=== PATIENT | male | born 1935 | race Caucasian/White ===

== ENCOUNTER 2016-09-20 15:23 | Inpatient (IN) | payer MEDICAID, MEDICARE, OTHER ==
[2016-09-20] VITALS (12 sets, daily range): BP systolic 60–129; BP diastolic 24–96
[~2016-09-20] VITALS: Ht 165.1 cm; Wt 88.1 kg
[~2016-09-20 15:23] MED LIST: CALC200T98 PO; CALC625T61 PO; CAPS42.56 TP; DEXT15DR5 EACHEYE; DOCU-109 PO; FURO-69 PO; HUM100VI SQ; LAMO100T5 PO; LEVO112T2 PO; MAGN400O7 PO; ONDA4TAB10 SL; PHEN100C PO; RANI150T2 PO
--- NOTE | 2016-09-20 17:12 | PDOC1 ---
History and Physical Date of Admission Date of Admission DATE: 09/20/16 TIME: 17:07 Identification/Chief Complaint Chief Complaint confusion, lethargy Problems: Source Source: Chart review, Patient History of Present Illness History of Present Illness pt presented from [facility] in [place] today for acute lethargy, confusion, was obtunded and not alert. Unable to be aroused initially in ER, Labs showed acute renal failure, Cr to 9.4, BUN 127, ALb 2.5 WBC 16.2, HGb 12.2, Plt 272 UA pos nitrate He was here until 08/31 for SBO, ostomy, labs at [place] were BUN 35, Cr 1.1, Albumin 1.5 Past Medical History Cardiovascular: HTN Pulmonary: No pertinent hx CENTRAL NERVOUS SYSTEM: Seizure Hepatobiliary: No pertinent hx Psych: Other Musculoskeletal: low back pain Rheumatologic: No pertinent hx Endocrine: No pertinent hx Past Surgical History Past Surgical History: Cholecystectomy, Other (SBO, ostomy 1 mo ago) Family History Family History: Family History Unknown Social History Smoke: No ALCOHOL: none Drugs: None Current Medications Current Medications Current Medications Sodium Chloride 1,000 ml @ 1,000 mls/hr 1X ONCE IV ; Start 09/20/16 at 17:15; Stop 09/20/16 at 18:14 Sodium Chloride 1,000 ml @ 1,000 mls/hr 1X ONCE IV ; Start 09/20/16 at 17:15; Stop 09/20/16 at 18:14 Vancomycin HCl (Vanco Per Pharmacy) 1 each PRN DAILY PRN MC SEE COMMENTS; Start 09/20/16 at 17:15; Status UNV Piperacillin Sod/ Tazobactam Sod (Zosyn Per Pharmacy) 1 each PRN DAILY PRN MC SEE COMMENTS; Start 09/20/16 at 17:15; Status UNV Sodium Chloride 1,000 ml @ 150 mls/hr Q6H40M IV ; Start 09/20/16 at 17:15; Status UNV Active Scripts Active Reported Milk Of Magnesia (Magnesium Hydroxide) 400 Mg/5 Ml Oral.susp 400 Mg PO PRN Q24HRS PRN Lamictal (Lamotrigine) 100 Mg Tablet 1 Tab PO BID Lasix (Furosemide) 20 Mg Tablet 1 Tab PO DAILY Humulin 70-30 Vial (Hum Insulin Nph/Reg Insulin Hm) 100 Unit/1 Ml Vial 22 Unit SQ Q AM Colace (Docusate Sodium) 100 Mg Capsule 1 Cap PO BID Calcium Polycarbophil 625 Mg Tablet 1,250 Mg PO DAILYWSUP Artificial Tears Eye Drops (Dextran 70/Hypromellose) 15 Ml Drops 2 Drop EACHEYE BID Synthroid (Levothyroxine Sodium) 112 Mcg Tablet 1 Tab PO DAILY Zofran Odt (Ondansetron) 4 Mg Tab.rapdis 1 Tab SL PRN Q4HRS Humulin 70-30 Vial (Hum Insulin Nph/Reg Insulin Hm) 100 Unit/1 Ml Vial 10 Unit SQ DAILYBFRSUP Capzasin-Hp (Capsaicin) 42.5 Gm Cream..g. 42.5 Gm TP BID Calcium Antacid (Calcium Carbonate) 200 Mg Tab.chew 400 Mg PO TID Dilantin (Phenytoin Sodium Extended) 100 Mg Capsule 300 Mg PO HS Ranitidine Hcl 150 Mg Tablet 1 Tab PO BID Allergies Allergies: Coded Allergies: Carbapenems (Verified Allergy, Intermediate, 08/26/16) Cephalosporins (Verified Allergy, Intermediate, 08/26/16) Penicillins (Verified Allergy, Intermediate, 08/26/16) aztreonam (Verified Allergy, Intermediate, 08/26/16) sulfamethoxazole (Verified Allergy, Intermediate, 08/26/16) trimethoprim (Verified Allergy, Intermediate, 08/26/16) ROS Review of System confused, lethargic, with chills, rigors PT unable to verbalize to me Physical Exam General: moderate distress, Other (poorly cooperatve, non sensical statements , some agitation) HEENT: Atraumatic, PERRLA, Other (pupils small, reactive, no icterus) Lungs: Clear to auscultation, Normal air movement Heart: S1S2, RRR (tachycardic) Abdomen: Other (a little firm, ostomy appears clear, bowel sounds present) Rectal Exam: not examined Extremities: No clubbing, No cyanosis Skin: No rashes, No breakdown, No significant lesion Neuro: Other (agitated, delirious) VTE Prophylaxis Ordered VTE Prophylaxis Devices: Yes VTE Pharmacological Prophylaxi: Yes Assessment/Plan Assessment/Plan sepsis, shock,, hypotensive, 2 liters NS given at [facility] ER, 2 liters ordered now BP 58/40 here, levaphed started, will wean as able VAnc ordered, mult other drug allergies to carbapenems, cephalosporins, Pcn, aztreonam, sulfa acute metabolic encephalopathy, UTI, sepsis central line ordered, PICC OK acute renal failure, could be pre-renal, 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
[2016-09-20] MEDS ORDERED: VANCOMYCIN PER PHARMACY MC PRN (17:15)
[2016-09-20] MEDS ORDERED: HYDROCORTISONE SOD SUCC/PF 100 MG/2 ML VIAL. IV ONE (17:15)
[2016-09-20] MEDS ORDERED: VANCOMYCIN 2 GM in IV NORMAL SALINE 500ML BAG 500 ML IV ONE (17:15)
[2016-09-20] MEDS: IPRATRPIUM/ALBUTEROL 0.5/2.5MG 3 ML NEBU. NEB SCH ×2 (17:15→19:40)
[2016-09-20] MEDS ORDERED: IV NORMAL SALINE 1000ML BAG 1,000 ML IV ONE ×2 (17:15)
[2016-09-20] MEDS ORDERED: PIP/TAZO PER PHARMACY MC PRN (17:15)
[2016-09-20] MEDS ORDERED: LEVE500T56 PO (17:26)
[2016-09-20] MEDS ORDERED: ONDANSETRON ODT 4 MG TAB.RAPDIS. PO PRN (17:30)
[2016-09-20] MEDS: INSULN ASP PRT/INSULIN ASPART 300 UNITS/3 ML INSULN.PEN. SQ SCH (17:45)
[2016-09-20] MEDS: NOREPINEPHRIN PREMIX 250 ML IV PRN (18:00)
[2016-09-20] MEDS ORDERED: PIPERACILLIN/TAZOBACTAM 4.5 GM in IV NORMAL SALINE 100ML 100 ML IV SCH (18:00)
[2016-09-20 18:40] LABS: BASO # 0.1 x10^3/uL (0.0-0.2); BASO % 0 % (0-3); EOS % 0 % (0-3); HEMATOCRIT 28.1 % (39.0-53.0); HEMOGLOBIN 9.4 g/dL (13.0-17.5); LYMPH # 1.7 x10^3/uL (1.0-4.8); LYMPH % 8 % (24-48); MEAN CORPUSCULAR HEMOGLOBIN 30 pg (25-35); MEAN CORPUSCULAR HGB CONC 33 g/dL (31-37); MEAN CORPUSCULAR VOLUME 91 fL (79-100); MONO % 7 % (0-9); NEUT % 84 % (31-73); PLATELET COUNT 248 x10^3/uL (140-400); RED BLOOD COUNT 3.09 x10^6/uL (4.30-5.70); RED CELL DISTRIBUTION WIDTH 14.1 % (11.5-14.5); WHITE BLOOD COUNT 20.8 x10^3/uL (4.0-11.0)
[2016-09-20 18:59] LABS: ALBUMIN 1.7 g/dL (3.4-5.0); ALBUMIN/GLOBULIN RATIO 0.4 (1.0-1.7); CALCIUM 6.9 mg/dL (8.5-10.1); GFR 7.6; POTASSIUM 4.4 mmol/L (3.5-5.1); TOTAL BILIRUBIN 0.7 mg/dL (0.2-1.0); TOTAL PROTEIN 6.4 g/dL (6.4-8.2)
[2016-09-20 19:38] LABS: PLT ESTIMATE ADEQUATE (ADEQUATE); POLYCHROMASIA MOD
[2016-09-20 19:39] LABS: OVALOCYTES OCC; STOMATOCYTES OCC
[2016-09-20 19:40] LABS: CRENATED RBC PRESENT
--- NOTE | 2016-09-20 19:41 | RAD ---
History: Small bowel obstruction. Comparison: August 26, 2016. Findings: AP supine portable abdomen radiograph, 2 images. There is evidence of motion artifact. Bro catheter versus suprapubic catheter is seen in the lower pelvis. Bowel gas pattern is nonspecific, without evidence of obstruction. Impression: Limited examination. Nonspecific bowel gas pattern. Electronically signed by: Danny Alejandra MD (09/20/2016 7:38 PM)
[2016-09-20] MEDS: IV NORMAL SALINE 1000ML BAG 1,000 ML IV SCH ×2 (19:52→23:48)
--- NOTE | 2016-09-20 20:01 | EKG ---
[facility] [address] [place] [address] Test Date: 2016-09-20 Test Time: 20:02:31 Pat Name: KATIE RICKETTS Department: Room: 109 1 Gender: M [employer] Employee: : 1935 Requested By: MELISSA JUÁREZ Order Number: [id number] Reading MD: Esmer Ware Measurements Intervals [place] Rate: 89 P: 37 NV: 182 QRS: -8 QRSD: 58 T: 26 QT: 414 QTc: 511 Interpretive Statements SINUS RHYTHM LEFTWARD AXIS LOW VOLTAGE PROLONGED QT ABNORMAL ECG Electronically Signed On 09-23-2016 21:18:56 CDT by Esmer Ware
[2016-09-20] MEDS: DOCUSATE SODIUM 100 MG CAPSULE. PO SCH (20:10)
[2016-09-20] MEDS: CALCIUM CARBONATE 500 MG TAB.CHEW PO SCH (20:11)
[2016-09-20 20:31] LABS: FIO2 ABG 32; HCO3 ABG 28 mmol/L (21-28); PCO2 ABG 57 mmHg (35-46); PO2 ABG 70 mmHg (65-108); SAT O2 ABG 91 % (92-99)
[2016-09-20] MEDS ORDERED: levETIRAcetam 500 MG TABLET PO SCH (21:00)
[2016-09-20] MEDS ORDERED: FAMOTIDINE 20 MG TABLET. PO SCH (21:00)
[2016-09-20] MEDS ORDERED: PHENYTOIN SODIUM EXTENDED 100 MG CAPSULE PO SCH (21:00)
[2016-09-20] MEDS ORDERED: lamoTRIgine 100 MG TABLET. PO SCH (21:00)
[2016-09-20] MEDS: CAPSAICIN 0.025% TOPICAL CREAM 60GM TUBE. TP SCH (21:10)
[2016-09-20] MEDS: POLYVINYL ALCOHOL 1.4% OPHTH SOLUTION 15ML BOTTLE. OU SCH (21:10)
[2016-09-20] MEDS: DOXYCYCLINE HYCLATE 100 MG in IV DEXTROSE 5% 100 ML IV SCH (21:11)
[2016-09-20] MEDS: HEPARIN PF for SUB-Q USE 5,000 UNIT/0.5 ML VIAL. SQ SCH (21:13)
[2016-09-20] MEDS: HYDROCORTISONE SOD SUCC/PF 100 MG/2 ML VIAL. IV SCH (21:52)
[2016-09-20] MEDS ORDERED: ALBUMIN HUMAN 5% 500 ML IV ONE (23:30)
[2016-09-20] MEDS: MORPHINE SULFATE 4 MG/ML DISP.SYRIN. IV PRN (23:47)
[2016-09-21] VITALS (30 sets, daily range): BP systolic 84–154; BP diastolic 37–88
--- NOTE | 2016-09-21 00:01 | ACF ---
Admission Forms Criteria SEPSIS and OTHER FEBRILE ILLNESS, W/O FOCAL INFECTION Clinical Indications for Admission to Inpatient Care ( Place 'X' for any and all applicable criteria): Admission is indicated for ANY ONE of the following (1)(2)(3)(4): [ ] I. Bacteremia [ ]II. Suspected or identified specific infection requiring hospitalization (eg, meningitis, endocarditis) [X]III. Hemodynamic instability [ ]IV. Altered mental status [ ]V. Failure or unavailability of outpatient antimicrobial treatment [ ]. Hypoxemia [ ]VII. Seizures [ ]VIII. High-risk febrile neutropenia [ ]IX. Need for parenteral antibiotic in patient who is likely to abuse vascular access device (eg, injection drug user) [A](7) [ ]X. Temperature greater than 104.9 degrees F (40.5 degrees C) (oral) [ ]XI. Inpatient admission required rather than observation care because of ANY ONE of the following: [ ]1) Specific infection identified that is too severe for outpatient treatment or observation care trial [ ]2) Metabolic disorder (eg, hypoglycemia, hyperglycemia, metabolic acidosis) that is severe or persistent [ ]3) Temperature greater than 103.1 degrees F (39.5 degrees C) ( oral) that is not responsive to observation care treatment [ ]4) IV fluid to replace significant ongoing (eg, for over 24 hours) losses (> 3 L/m2 per day) [ ]5) Supplemental oxygen or respiratory treatments for over 24 hours that is performable only in acute inpatient setting [ ]6) Parenteral nutrition regimen need that must be implemented on inpatient basis [ ]7) Strict or protective (eg, laminar flow) isolation [ ]8) Other condition, treatment or monitoring requiring inpatient admission Extended stay beyond goal length of stay may be needed for(1)(3) [ ]a) Sepsis or septic shock(22) [ ]b) Positive blood cultures [ ]c) Insufficient oral intake [ ]d) High-risk febrile neutropenia(29)(30) [ ]e) Continued fever and clinical instability [ ]f) Clinically active comorbid illness (e.g,heart failure, renal failure , diabetes) The original [employer] content created by [employer] has been revised. The portions of the content which have been revised are identified through the use of italic text or in bold, and [employer] has neither reviewed nor approved the modified material. All other unmodified content is copyright [facility]. Please see references footnoted in the original [facility] edition 2016 Admission Criteria Met?: Yes NOEL DOYLE Sep 21, 2016 00:00
[2016-09-21] MEDS: IV NORMAL SALINE 1000ML BAG 1,000 ML IV SCH ×4 (02:30→20:58)
[2016-09-21] MEDS: HYDROCORTISONE SOD SUCC/PF 100 MG/2 ML VIAL. IV SCH ×3 (05:56→22:34)
[2016-09-21 07:23] LABS: GFR 11.2; POTASSIUM 4.3 mmol/L (3.5-5.1)
[2016-09-21 07:26] LABS: BASO % 0 % (0-3); EOS % 0 % (0-3); HEMATOCRIT 23.6 % (39.0-53.0); HEMOGLOBIN 7.9 g/dL (13.0-17.5); LYMPH % 8 % (24-48); MEAN CORPUSCULAR HEMOGLOBIN 30 pg (25-35); MEAN CORPUSCULAR HGB CONC 33 g/dL (31-37); MEAN CORPUSCULAR VOLUME 91 fL (79-100); MONO % 4 % (0-9); NEUT % 88 % (31-73); PLATELET COUNT 184 x10^3/uL (140-400); RED CELL DISTRIBUTION WIDTH 13.5 % (11.5-14.5); WHITE BLOOD COUNT 12.9 x10^3/uL (4.0-11.0)
[2016-09-21] MEDS: NOREPINEPHRIN PREMIX 250 ML IV PRN (07:27)
[2016-09-21 07:29] LABS: ALBUMIN/GLOBULIN RATIO 0.5 (1.0-1.7); TOTAL BILIRUBIN 0.4 mg/dL (0.2-1.0)
[2016-09-21] MEDS: IPRATRPIUM/ALBUTEROL 0.5/2.5MG 3 ML NEBU. NEB SCH ×4 (07:30→19:52)
[2016-09-21] MEDS: INSULN ASP PRT/INSULIN ASPART 300 UNITS/3 ML INSULN.PEN. SQ SCH ×2 (07:30→17:19)
--- NOTE | 2016-09-21 07:36 | RAD ---
Indication: Sepsis. Time of exam 1732 hours. Correlation is made with prior study from 08/28/2016. The heart size is stable. Right hemidiaphragm is mildly elevated. There is subsegmental atelectasis in both bases. The right IJ line has been removed. Mid and upper lung [place] are clear. No pneumothorax is seen. Impression: Mild bibasilar subsegmental atelectasis.
--- NOTE | 2016-09-21 07:47 | PDOC ---
Infectious Disease Note ROS ROS GEN: Denies fevers, chills, sweats HEENT: Denies blurred vision, sore throat CV: Denies chest pain RESP: Denies shortness of air, cough GI: Denies n/v/d NEURO: Denies confusion, dizziness MSK: Denies weakness, joint pain/swelling Vital Sign Vital Signs Vital Signs Date Time Temp Pulse Resp B/P (MAP) Pulse Ox O2 Delivery O2 Flow Rate FiO2 09/21/16 05:30 84 12 104/53 (70) 97 Nasal Cannula 4.0 09/21/16 04:00 98.0 98.0 Physical Exam PHYSICAL EXAM GENERAL: NAD, Alert HEENT: PERRL, OC/OP NECK: Supple, no JVD, no LN LUNGS: Clear HEART: S1S2, no gallop, no murmur ABD: Soft, NT, no organomegaly, no rebound EXT: No edema, no cyanosis QUALITY ASSURANCE AUDITOR: Alert, oriented x 3, no focal neurologic deficit SKIN: No rash IV: ok Labs Lab Laboratory Tests Test 09/20/16 18:30 09/20/16 19:45 09/21/16 06:45 White Blood Count 20.8 x10^3/uL (4.0-11.0) 12.9 x10^3/uL (4.0-11.0) Red Blood Count 3.09 x10^6/uL (4.30-5.70) 2.60 x10^6/uL (4.30-5.70) Hemoglobin 9.4 g/dL (13.0-17.5) 7.9 g/dL (13.0-17.5) Hematocrit 28.1 % (39.0-53.0) 23.6 % (39.0-53.0) Mean Corpuscular Volume 91 fL (79-100) 91 fL (79-100) Mean Corpuscular Hemoglobin 30 pg (25-35) 30 pg (25-35) Mean Corpuscular Hemoglobin Concent 33 g/dL (31-37) 33 g/dL (31-37) Red Cell Distribution Width 14.1 % (11.5-14.5) 13.5 % (11.5-14.5) Platelet Count 248 x10^3/uL (140-400) 184 x10^3/uL (140-400) Neutrophils (%) (Auto) 84 % (31-73) 88 % (31-73) Lymphocytes (%) (Auto) 8 % (24-48) 8 % (24-48) Monocytes (%) (Auto) 7 % (0-9) 4 % (0-9) Eosinophils (%) (Auto) 0 % (0-3) 0 % (0-3) Basophils (%) (Auto) 0 % (0-3) 0 % (0-3) Neutrophils # (Auto) 17.3 x10^3uL (1.8-7.7) 11.3 x10^3uL (1.8-7.7) Lymphocytes # (Auto) 1.7 x10^3/uL (1.0-4.8) 1.0 x10^3/uL (1.0-4.8) Monocytes # (Auto) 1.5 x10^3/uL (0.0-1.1) 0.5 x10^3/uL (0.0-1.1) Eosinophils # (Auto) 0.1 x10^3/uL (0.0-0.7) 0.0 x10^3/uL (0.0-0.7) Basophils # (Auto) 0.1 x10^3/uL (0.0-0.2) 0.0 x10^3/uL (0.0-0.2) Segmented Neutrophils % 89 % (35-66) Lymphocytes % 4 % (24-48) Monocytes % 7 % (0-10) Platelet Estimate Adequate (ADEQUATE) Large Platelets Occ Polychromasia Mod Basophilic Stippling Present Ovalocytes Occ Stomatocytes Occ Crenated Cell Present Sodium Level 138 mmol/L (136-145) 140 mmol/L (136-145) Potassium Level 4.4 mmol/L (3.5-5.1) 4.3 mmol/L (3.5-5.1) Chloride Level 98 mmol/L (98-107) 103 mmol/L (98-107) Carbon Dioxide Level 30 mmol/L (21-32) 25 mmol/L (21-32) Anion Gap 10 (6-14) 12 (6-14) Blood Urea Nitrogen 104 mg/dL (8-26) 95 mg/dL (8-26) Creatinine 7.0 mg/dL (0.7-1.3) 5.0 mg/dL (0.7-1.3) Estimated GFR (Cockcroft-Gault) 7.6 11.2 BUN/Creatinine Ratio 15 (6-20) 19 (6-20) Glucose Level 159 mg/dL (70-99) 221 mg/dL (70-99) Lactic Acid Level 2.0 mmol/L (0.4-2.0) Calcium Level 6.9 mg/dL (8.5-10.1) 7.0 mg/dL (8.5-10.1) Total Bilirubin 0.7 mg/dL (0.2-1.0) 0.4 mg/dL (0.2-1.0) Aspartate Amino Transf (AST/SGOT) 26 U/L (15-37) 30 U/L (15-37) Alanine Aminotransferase (ALT/SGPT) 15 U/L (16-63) 14 U/L (16-63) Alkaline Phosphatase 102 U/L (46-116) 81 U/L (46-116) Total Protein 6.4 g/dL (6.4-8.2) 6.0 g/dL (6.4-8.2) Albumin 1.7 g/dL (3.4-5.0) 2.0 g/dL (3.4-5.0) Albumin/Globulin Ratio 0.4 (1.0-1.7) 0.5 (1.0-1.7) Procalcitonin 0.99 ng/mL (0.00-0.10) Phenytoin (Dilantin) Level 1.8 mcg/mL (10.0-20.0) Phenytoin Last Dose Date 09/20/16 Phenytoin Last Dose Time 0800 O2 Saturation 91 % (92-99) Arterial Blood pH 7.30 (7.35-7.45) Arterial Blood pCO2 at Patient Temp 57 mmHg (35-46) Arterial Blood pO2 at Patient Temp 70 mmHg (65-108) Arterial Blood HCO3 28 mmol/L (21-28) Arterial Blood Base Excess 0 mmol/L (-3-3) FiO2 32 Objective Assessment Sepsis - on Levophed 3 BP was 80s/40s - POA. Received Vanc/Rocephin/Levoflox prior to transfer KINZA ? UTI - POA Multiple abx allergies Seizures - on Keppra Plan Plan of Care D/c Vanc Begin Zyvox Add Meropenem - has tolerated Add Micafungin Labs this am F/u labs and cults Thank you [address] [facility]dr[facility]z note Thank you Dictation system down # DORITA BARNEY MD Sep 21, 2016 07:47
[2016-09-21] MEDS: DOCUSATE SODIUM 100 MG CAPSULE. PO SCH ×2 (09:00→20:48)
[2016-09-21] MEDS ORDERED: LEVOTHYROXINE 112 MCG TABLET PO SCH (09:00)
[2016-09-21] MEDS: FAMOTIDINE 20 MG/2 ML VIAL IVP SCH (09:00)
[2016-09-21] MEDS: CALCIUM CARBONATE 500 MG TAB.CHEW PO SCH ×3 (09:00→20:48)
[2016-09-21] MEDS: DOXYCYCLINE HYCLATE 100 MG in IV DEXTROSE 5% 100 ML IV SCH ×2 (09:05→20:59)
[2016-09-21] MEDS: POLYVINYL ALCOHOL 1.4% OPHTH SOLUTION 15ML BOTTLE. OU SCH ×2 (09:06→20:59)
[2016-09-21] MEDS: CAPSAICIN 0.025% TOPICAL CREAM 60GM TUBE. TP SCH ×2 (09:06→20:59)
--- NOTE | 2016-09-21 09:59 | PDOC2 ---
NEUROLOGY CONSULT Date of Admission Date of Admission DATE: 09/21/16 TIME: 09:51 Reason for Consult Reason for Consult: Epilepsy Referring Physician Referring Physician: Dr. Mosley Source Source: Chart review History of Present Illness History of Present Illness The patient is an 80-year-old prisoner whom I met during his hospitalization earlier this month. He has a history of epilepsy since 1979 and had seizures last month, but not this admission. He comes in with sepsis, renall failure, hypertension, and lethargy. He is doing better this morning according to nurses. There is no history of stroke or head injury. Past Medical History Cardiovascular: HTN CENTRAL NERVOUS SYSTEM: Seizure GI: GERD Endocrine: Diabetes, Hypothyroidism Past Surgical History Past Surgical History: Other (Small bowel obstruction, ostomy) Family History Family History: No pertinent hx Social History Social History Prisoner, no alcohol or tobacco Current Medications Current Medications Current Medications Sodium Chloride 1,000 ml @ 1,000 mls/hr 1X ONCE IV Last administered on 19:49; Start 09/20/16 at 17:15; Stop 09/20/16 at 18:14; Status DC Sodium Chloride 1,000 ml @ 1,000 mls/hr 1X ONCE IV Last administered on 19:51; Start 09/20/16 at 17:15; Stop 09/20/16 at 18:14; Status DC Vancomycin HCl (Vanco Per Pharmacy) 1 each PRN DAILY PRN MC SEE COMMENTS Last administered on 09/20/16 19:32; Start 09/20/16 at 17:15; Stop 09/21/16 at 07:43 ; Status DC Piperacillin Sod/ Tazobactam Sod (Zosyn Per Pharmacy) 1 each PRN DAILY PRN MC SEE COMMENTS; Start 09/20/16 at 17:15; Stop 09/20/16 at 17:15; Status DC Sodium Chloride 1,000 ml @ 200 mls/hr Q5H IV Last administered on 09/21/16 06 :46; Start 09/20/16 at 17:15 Hydrocortisone Sodium Succinate (Solu-CORTEF) 100 mg 1X ONCE IV Last administered on 09/20/16 19:50; Start 09/20/16 at 17:15; Stop 09/20/16 at 17:16 ; Status DC Hydrocortisone Sodium Succinate (Solu-CORTEF) 100 mg Q8HRS IV Last administered on 09/21/16 05:56; Start 09/20/16 at 22:00 Vancomycin HCl 2 gm/Sodium Chloride 500 ml @ 250 mls/hr 1X ONCE IV ; Start at 17:15; Stop 09/20/16 at 19:14; Status Cancel Piperacillin Sod/ Tazobactam Sod 4.5 gm/Sodium Chloride 100 ml @ 200 mls/hr Q6HRS IV ; Start 09/20/16 at 18:00; Stop 09/20/16 at 18:00; Status DC Albuterol/ Ipratropium (Duoneb) 3 ml RTQID NEB Last administered on 09/21/16 07:30; Start 09/20/16 at 17:30 Calcium Carbonate/ Glycine (Tums) 500 mg TID PO ; Start 09/20/16 at 21:00 Docusate Sodium (Colace) 100 mg BID PO ; Start 09/20/16 at 21:00 Lamotrigine (LaMICtal) 100 mg BID PO ; Start 09/20/16 at 21:00; Stop 09/20/16 at 21:00; Status DC Levothyroxine Sodium (Synthroid) 112 mcg DAILY PO ; Start 09/21/16 at 09:00; Stop 09/21/16 at 09:00; Status DC Ondansetron HCl (Zofran Odt) 4 mg PRN Q4HRS PRN PO NAUSEA/VOMITING; Start 09/20 at 17:30 Phenytoin Sodium (Dilantin) 300 mg HS PO ; Start 09/20/16 at 21:00; Stop at 21:00; Status DC Capsaicin (Zostrix) 1 loulou BID TP Last administered on 09/21/16 09:06; Start at 21:00 Artificial Tears (Artificial Tears) 1 drop BID OU Last administered on 09:06; Start 09/20/16 at 21:00 Insulin Aspart Prota 70%/Aspart 30% (Novolog Mix 70-30) 10 units DAILYBFRSUP SQ ; Start 09/20/16 at 17:45 Insulin Aspart Prota 70%/Aspart 30% (Novolog Mix 70-30) 22 units DAILYAC SQ ; Start 09/21/16 at 07:30 Famotidine (Pepcid) 20 mg BID PO ; Start 09/20/16 at 21:00; Stop 09/21/16 at 08: 25; Status DC Heparin Sodium (Porcine) (Heparin Sq) 5,000 unit Q12HR SQ Last administered on 09/20/16 21:13; Start 09/20/16 at 21:00 Levetiracetam (Keppra) 500 mg BID PO ; Start 09/20/16 at 21:00; Stop 09/20/16 at 21:00; Status DC Doxycycline Hyclate 100 mg/ Dextrose 100 ml @ 50 mls/hr Q12HR IV Last administered on 09/21/16 09:05; Start 09/20/16 at 21:00 Vancomycin HCl 1 each 1X ONCE MC ; Start 09/22/16 at 16:00; Stop 09/22/16 at 16 :00; Status DC Levetiracetam 500 mg/Sodium Chloride 100 ml @ 400 mls/hr Q12HR IV Last administered on 09/20/16 21:10; Start 09/20/16 at 21:00 Norepinephrine Bitartrate 250 ml @ 0 mls/hr CONT PRN IV SEE I/O RECORD Last administered on 09/21/16 07:27; Start 09/20/16 at 21:45 Morphine Sulfate 4 mg PRN Q2HR PRN IV SEVERE PAIN Last administered on 23:47; Start 09/20/16 at 23:15 Albumin Human 500 ml @ 125 mls/hr 1X ONCE IV Last administered on 09/20/16 23:47; Start 09/20/16 at 23:30; Stop 09/21/16 at 03:29; Status DC Linezolid 300 ml @ 300 mls/hr Q12HR IV ; Start 09/21/16 at 09:00 Meropenem 500 mg/ Sodium Chloride 50 ml @ 100 mls/hr DAILY@0800 IV ; Start at 08:00 Micafungin Sodium 100 mg/Dextrose 100 ml @ 100 mls/hr Q24H IV ; Start 09/21/16 at 10:00 Famotidine (Pepcid) 20 mg DAILY IVP ; Start 09/21/16 at 09:00 Levothyroxine Sodium 56 mcg/ Sodium Chloride 5 ml @ 100 mls/hr DAILY IVP ; Start 09/21/16 at 09:00 Fosphenytoin Sodium (Cerebyx) 100 mg Q8HRS IV ; Start 09/21/16 at 09:00 Active Scripts Active Reported Keppra (Levetiracetam) 500 Mg Tablet 500 Mg PO BID Lamictal (Lamotrigine) 100 Mg Tablet 1 Tab PO BID Lasix (Furosemide) 20 Mg Tablet 1 Tab PO DAILY Humulin 70-30 Vial (Hum Insulin Nph/Reg Insulin Hm) 100 Unit/1 Ml Vial 22 Unit SQ Q AM Synthroid (Levothyroxine Sodium) 112 Mcg Tablet 1 Tab PO DAILY Humulin 70-30 Vial (Hum Insulin Nph/Reg Insulin Hm) 100 Unit/1 Ml Vial 10 Unit SQ DAILYBFRSUP Dilantin (Phenytoin Sodium Extended) 100 Mg Capsule 300 Mg PO HS Allergies Allergies: Coded Allergies: Carbapenems (Verified Allergy, Intermediate, 08/26/16) Cephalosporins (Verified Allergy, Intermediate, 09/20/16) TOLERATES MERREM Penicillins (Verified Allergy, Intermediate, 08/26/16) aztreonam (Verified Allergy, Intermediate, 08/26/16) sulfamethoxazole (Verified Allergy, Intermediate, 08/26/16) trimethoprim (Verified Allergy, Intermediate, 08/26/16) ROS Review of System Unobtainable Physical Exam Physical Examination PHYSICAL EXAMINATION: Vital signs: see above. General appearance is normal and in no acute distress. HEENT: Normocephalic and nontraumatic. Eyes, nose, ears, and throat are unremarkable. Neck is supple. No lymphadenopathy. No bruits are heard over the carotid artery. No crepitus. NEUROLOGIC: His eyes are closed but alerts easily. He is sitting up in his bed in the ICU. He says "I wish I could figure out why I am here." He does not know the date or location but does know his name. Cranial nerves show full [place] to threat, equally reactive pupils, and intact extraocular movements. There is no facial asymmetry. Reflexes are 1+. He moves all extremities but does not cooperate with formal strength testing, cerebellar examination, or sensory exam. Vitals VITALS Vital Signs Date Time Temp Pulse Resp B/P (MAP) Pulse Ox O2 Delivery O2 Flow Rate FiO2 09/21/16 07:30 99 Nasal Cannula 3.0 09/21/16 05:30 84 12 104/53 (70) 09/21/16 04:00 98.0 98.0 Labs Labs Laboratory Tests Test 09/20/16 18:30 09/20/16 19:45 09/21/16 06:45 White Blood Count 20.8 x10^3/uL (4.0-11.0) 12.9 x10^3/uL (4.0-11.0) Red Blood Count 3.09 x10^6/uL (4.30-5.70) 2.60 x10^6/uL (4.30-5.70) Hemoglobin 9.4 g/dL (13.0-17.5) 7.9 g/dL (13.0-17.5) Hematocrit 28.1 % (39.0-53.0) 23.6 % (39.0-53.0) Mean Corpuscular Volume 91 fL (79-100) 91 fL (79-100) Mean Corpuscular Hemoglobin 30 pg (25-35) 30 pg (25-35) Mean Corpuscular Hemoglobin Concent 33 g/dL (31-37) 33 g/dL (31-37) Red Cell Distribution Width 14.1 % (11.5-14.5) 13.5 % (11.5-14.5) Platelet Count 248 x10^3/uL (140-400) 184 x10^3/uL (140-400) Neutrophils (%) (Auto) 84 % (31-73) 88 % (31-73) Lymphocytes (%) (Auto) 8 % (24-48) 8 % (24-48) Monocytes (%) (Auto) 7 % (0-9) 4 % (0-9) Eosinophils (%) (Auto) 0 % (0-3) 0 % (0-3) Basophils (%) (Auto) 0 % (0-3) 0 % (0-3) Neutrophils # (Auto) 17.3 x10^3uL (1.8-7.7) 11.3 x10^3uL (1.8-7.7) Lymphocytes # (Auto) 1.7 x10^3/uL (1.0-4.8) 1.0 x10^3/uL (1.0-4.8) Monocytes # (Auto) 1.5 x10^3/uL (0.0-1.1) 0.5 x10^3/uL (0.0-1.1) Eosinophils # (Auto) 0.1 x10^3/uL (0.0-0.7) 0.0 x10^3/uL (0.0-0.7) Basophils # (Auto) 0.1 x10^3/uL (0.0-0.2) 0.0 x10^3/uL (0.0-0.2) Segmented Neutrophils % 89 % (35-66) Lymphocytes % 4 % (24-48) Monocytes % 7 % (0-10) Platelet Estimate Adequate (ADEQUATE) Large Platelets Occ Polychromasia Mod Basophilic Stippling Present Ovalocytes Occ Stomatocytes Occ Crenated Cell Present Sodium Level 138 mmol/L (136-145) 140 mmol/L (136-145) Potassium Level 4.4 mmol/L (3.5-5.1) 4.3 mmol/L (3.5-5.1) Chloride Level 98 mmol/L (98-107) 103 mmol/L (98-107) Carbon Dioxide Level 30 mmol/L (21-32) 25 mmol/L (21-32) Anion Gap 10 (6-14) 12 (6-14) Blood Urea Nitrogen 104 mg/dL (8-26) 95 mg/dL (8-26) Creatinine 7.0 mg/dL (0.7-1.3) 5.0 mg/dL (0.7-1.3) Estimated GFR (Cockcroft-Gault) 7.6 11.2 BUN/Creatinine Ratio 15 (6-20) 19 (6-20) Glucose Level 159 mg/dL (70-99) 221 mg/dL (70-99) Lactic Acid Level 2.0 mmol/L (0.4-2.0) Calcium Level 6.9 mg/dL (8.5-10.1) 7.0 mg/dL (8.5-10.1) Total Bilirubin 0.7 mg/dL (0.2-1.0) 0.4 mg/dL (0.2-1.0) Aspartate Amino Transf (AST/SGOT) 26 U/L (15-37) 30 U/L (15-37) Alanine Aminotransferase (ALT/SGPT) 15 U/L (16-63) 14 U/L (16-63) Alkaline Phosphatase 102 U/L (46-116) 81 U/L (46-116) Total Protein 6.4 g/dL (6.4-8.2) 6.0 g/dL (6.4-8.2) Albumin 1.7 g/dL (3.4-5.0) 2.0 g/dL (3.4-5.0) Albumin/Globulin Ratio 0.4 (1.0-1.7) 0.5 (1.0-1.7) Procalcitonin 0.99 ng/mL (0.00-0.10) Phenytoin (Dilantin) Level 1.8 mcg/mL (10.0-20.0) Phenytoin Last Dose Date 09/20/16 Phenytoin Last Dose Time 0800 O2 Saturation 91 % (92-99) Arterial Blood pH 7.30 (7.35-7.45) Arterial Blood pCO2 at Patient Temp 57 mmHg (35-46) Arterial Blood pO2 at Patient Temp 70 mmHg (65-108) Arterial Blood HCO3 28 mmol/L (21-28) Arterial Blood Base Excess 0 mmol/L (-3-3) FiO2 32 Laboratory Tests Test 09/20/16 18:30 09/20/16 19:45 09/21/16 06:45 White Blood Count 20.8 x10^3/uL (4.0-11.0) 12.9 x10^3/uL (4.0-11.0) Red Blood Count 3.09 x10^6/uL (4.30-5.70) 2.60 x10^6/uL (4.30-5.70) Hemoglobin 9.4 g/dL (13.0-17.5) 7.9 g/dL (13.0-17.5) Hematocrit 28.1 % (39.0-53.0) 23.6 % (39.0-53.0) Mean Corpuscular Volume 91 fL (79-100) 91 fL (79-100) Mean Corpuscular Hemoglobin 30 pg (25-35) 30 pg (25-35) Mean Corpuscular Hemoglobin Concent 33 g/dL (31-37) 33 g/dL (31-37) Red Cell Distribution Width 14.1 % (11.5-14.5) 13.5 % (11.5-14.5) Platelet Count 248 x10^3/uL (140-400) 184 x10^3/uL (140-400) Neutrophils (%) (Auto) 84 % (31-73) 88 % (31-73) Lymphocytes (%) (Auto) 8 % (24-48) 8 % (24-48) Monocytes (%) (Auto) 7 % (0-9) 4 % (0-9) Eosinophils (%) (Auto) 0 % (0-3) 0 % (0-3) Basophils (%) (Auto) 0 % (0-3) 0 % (0-3) Neutrophils # (Auto) 17.3 x10^3uL (1.8-7.7) 11.3 x10^3uL (1.8-7.7) Lymphocytes # (Auto) 1.7 x10^3/uL (1.0-4.8) 1.0 x10^3/uL (1.0-4.8) Monocytes # (Auto) 1.5 x10^3/uL (0.0-1.1) 0.5 x10^3/uL (0.0-1.1) Eosinophils # (Auto) 0.1 x10^3/uL (0.0-0.7) 0.0 x10^3/uL (0.0-0.7) Basophils # (Auto) 0.1 x10^3/uL (0.0-0.2) 0.0 x10^3/uL (0.0-0.2) Segmented Neutrophils % 89 % (35-66) Lymphocytes % 4 % (24-48) Monocytes % 7 % (0-10) Platelet Estimate Adequate (ADEQUATE) Large Platelets Occ Polychromasia Mod Basophilic Stippling Present Ovalocytes Occ Stomatocytes Occ Crenated Cell Present Sodium Level 138 mmol/L (136-145) 140 mmol/L (136-145) Potassium Level 4.4 mmol/L (3.5-5.1) 4.3 mmol/L (3.5-5.1) Chloride Level 98 mmol/L (98-107) 103 mmol/L (98-107) Carbon Dioxide Level 30 mmol/L (21-32) 25 mmol/L (21-32) Anion Gap 10 (6-14) 12 (6-14) Blood Urea Nitrogen 104 mg/dL (8-26) 95 mg/dL (8-26) Creatinine 7.0 mg/dL (0.7-1.3) 5.0 mg/dL (0.7-1.3) Estimated GFR (Cockcroft-Gault) 7.6 11.2 BUN/Creatinine Ratio 15 (6-20) 19 (6-20) Glucose Level 159 mg/dL (70-99) 221 mg/dL (70-99) Lactic Acid Level 2.0 mmol/L (0.4-2.0) Calcium Level 6.9 mg/dL (8.5-10.1) 7.0 mg/dL (8.5-10.1) Total Bilirubin 0.7 mg/dL (0.2-1.0) 0.4 mg/dL (0.2-1.0) Aspartate Amino Transf (AST/SGOT) 26 U/L (15-37) 30 U/L (15-37) Alanine Aminotransferase (ALT/SGPT) 15 U/L (16-63) 14 U/L (16-63) Alkaline Phosphatase 102 U/L (46-116) 81 U/L (46-116) Total Protein 6.4 g/dL (6.4-8.2) 6.0 g/dL (6.4-8.2) Albumin 1.7 g/dL (3.4-5.0) 2.0 g/dL (3.4-5.0) Albumin/Globulin Ratio 0.4 (1.0-1.7) 0.5 (1.0-1.7) Procalcitonin 0.99 ng/mL (0.00-0.10) Phenytoin (Dilantin) Level 1.8 mcg/mL (10.0-20.0) Phenytoin Last Dose Date 09/20/16 Phenytoin Last Dose Time 0800 O2 Saturation 91 % (92-99) Arterial Blood pH 7.30 (7.35-7.45) Arterial Blood pCO2 at Patient Temp 57 mmHg (35-46) Arterial Blood pO2 at Patient Temp 70 mmHg (65-108) Arterial Blood HCO3 28 mmol/L (21-28) Arterial Blood Base Excess 0 mmol/L (-3-3) FiO2 32 Assessment/Plan Assessment/Plan Impression: Metabolic encephalopathy History of epilepsy NPO status Recommendations: He is already on intravenous levetiracetam and I also wrote for his phenytoin intravenously. Hold lamotrigine until taking orally. Thank you for letting me help with the patient's care. JUAN FERGUSON MD Sep 21, 2016 09:59
[2016-09-21] MEDS: MEROPENEM 500 MG in IV NORMAL SALINE 50ML 50 ML IV SCH (10:13)
[2016-09-21] MEDS: MICAFUNGIN 100 MG in IV DEXTROSE 5% 100 ML IV SCH (10:13)
[2016-09-21 10:18] LABS: BACTERIA,URINE MODERATE /HPF (0-FEW); BILIRUBIN,URINE NEGATIVE (NEG); GLUCOSE,URINE NEGATIVE (NEG); NITRITE,URINE NEGATIVE (NEG); PH,URINE 6.5; PROTEIN,URINE 30 mg/dL (NEG-TRACE); RBC,URINE 0 /HPF (0-2); SQUAMOUS EPITHELIAL CELL,UR MOD /LPF; UROBILINOGEN,URINE 0.2 mg/dL (0.2 mg/dL)
[2016-09-21] MEDS: LEVOTHYROXINE SODIUM IVP SCH (10:22)
[2016-09-21] MEDS: NORMAL SALINE IVP SCH (10:22)
[2016-09-21] MEDS: FOSPHENYTOIN 100 MG/2 ML VIAL. IV SCH ×3 (10:27→22:35)
--- NOTE | 2016-09-21 10:29 | PDOC2 ---
CONSULT Date of Consult Date of Consult DATE: 09/21/16 TIME: 10:25 Reason for Consult Reason for Consult: KINZA Referring Physician Referring Physician: MARQUITA Identification/Chief Complaint Chief Complaint CONFUSED Problems: Source Source: Chart review History of Present Illness Reason for Visit: THIS IS AN 80 YR OLD ADMITTED WITH CONFUSION/OBTUNDATION. HE IS NOTED TO HAVE HYPOTENSION, HIGH WBC AND A CR OF 7.0. NO CKD HX NOTED. HE DID HAVE AN INDWELLING LEVY IN PLACE. HE ALSO HAD AN UTI. HE IS FROM THE [facility] IN [place]. 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 IN THE AM OF ADMIT Past Medical History Cardiovascular: HTN Pulmonary: No pertinent hx CENTRAL NERVOUS SYSTEM: Seizure GI: GERD Hepatobiliary: No pertinent hx Psych: Other Musculoskeletal: low back pain Rheumatologic: No pertinent hx Renal/: No pertinent hx Endocrine: Diabetes, Hypothyroidism Past Surgical History Past Surgical History: Other (Small bowel obstruction, ostomy) Family History Family History: No Significant, Family History Unknown Social History No ALCOHOL: none Drugs: None Current Medications Current Medications Current Medications Sodium Chloride 1,000 ml @ 1,000 mls/hr 1X ONCE IV Last administered on 19:49; Start 09/20/16 at 17:15; Stop 09/20/16 at 18:14; Status DC Sodium Chloride 1,000 ml @ 1,000 mls/hr 1X ONCE IV Last administered on 19:51; Start 09/20/16 at 17:15; Stop 09/20/16 at 18:14; Status DC Vancomycin HCl (Vanco Per Pharmacy) 1 each PRN DAILY PRN MC SEE COMMENTS Last administered on 09/20/16 19:32; Start 09/20/16 at 17:15; Stop 09/21/16 at 07:43 ; Status DC Piperacillin Sod/ Tazobactam Sod (Zosyn Per Pharmacy) 1 each PRN DAILY PRN MC SEE COMMENTS; Start 09/20/16 at 17:15; Stop 09/20/16 at 17:15; Status DC Sodium Chloride 1,000 ml @ 200 mls/hr Q5H IV Last administered on 09/21/16 06 :46; Start 09/20/16 at 17:15 Hydrocortisone Sodium Succinate (Solu-CORTEF) 100 mg 1X ONCE IV Last administered on 6/26/17at 19:50; Start 09/20/16 at 17:15; Stop 09/20/16 at 17:16 ; Status DC Hydrocortisone Sodium Succinate (Solu-CORTEF) 100 mg Q8HRS IV Last administered on 09/21/16 05:56; Start 09/20/16 at 22:00 Vancomycin HCl 2 gm/Sodium Chloride 500 ml @ 250 mls/hr 1X ONCE IV ; Start at 17:15; Stop 09/20/16 at 19:14; Status Cancel Piperacillin Sod/ Tazobactam Sod 4.5 gm/Sodium Chloride 100 ml @ 200 mls/hr Q6HRS IV ; Start 09/20/16 at 18:00; Stop 09/20/16 at 18:00; Status DC Albuterol/ Ipratropium (Duoneb) 3 ml RTQID NEB Last administered on 09/21/16 07:30; Start 09/20/16 at 17:30 Calcium Carbonate/ Glycine (Tums) 500 mg TID PO ; Start 09/20/16 at 21:00 Docusate Sodium (Colace) 100 mg BID PO ; Start 09/20/16 at 21:00 Lamotrigine (LaMICtal) 100 mg BID PO ; Start 09/20/16 at 21:00; Stop 09/20/16 at 21:00; Status DC Levothyroxine Sodium (Synthroid) 112 mcg DAILY PO ; Start 09/21/16 at 09:00; Stop 09/21/16 at 09:00; Status DC Ondansetron HCl (Zofran Odt) 4 mg PRN Q4HRS PRN PO NAUSEA/VOMITING; Start 09/20 at 17:30 Phenytoin Sodium (Dilantin) 300 mg HS PO ; Start 09/20/16 at 21:00; Stop at 21:00; Status DC Capsaicin (Zostrix) 1 loulou BID TP Last administered on 09/21/16 09:06; Start at 21:00 Artificial Tears (Artificial Tears) 1 drop BID OU Last administered on 09:06; Start 09/20/16 at 21:00 Insulin Aspart Prota 70%/Aspart 30% (Novolog Mix 70-30) 10 units DAILYBFRSUP SQ ; Start 09/20/16 at 17:45 Insulin Aspart Prota 70%/Aspart 30% (Novolog Mix 70-30) 22 units DAILYAC SQ ; Start 09/21/16 at 07:30 Famotidine (Pepcid) 20 mg BID PO ; Start 09/20/16 at 21:00; Stop 09/21/16 at 08: 25; Status DC Heparin Sodium (Porcine) (Heparin Sq) 5,000 unit Q12HR SQ Last administered on 09/20/16 21:13; Start 09/20/16 at 21:00 Levetiracetam (Keppra) 500 mg BID PO ; Start 09/20/16 at 21:00; Stop 09/20/16 at 21:00; Status DC Doxycycline Hyclate 100 mg/ Dextrose 100 ml @ 50 mls/hr Q12HR IV Last administered on 09/21/16 09:05; Start 09/20/16 at 21:00 Vancomycin HCl 1 each 1X ONCE MC ; Start 09/22/16 at 16:00; Stop 09/22/16 at 16 :00; Status DC Levetiracetam 500 mg/Sodium Chloride 100 ml @ 400 mls/hr Q12HR IV Last administered on 09/21/16 10:14; Start 09/20/16 at 21:00 Norepinephrine Bitartrate 250 ml @ 0 mls/hr CONT PRN IV SEE I/O RECORD Last administered on 09/21/16 07:27; Start 09/20/16 at 21:45 Morphine Sulfate 4 mg PRN Q2HR PRN IV SEVERE PAIN Last administered on 23:47; Start 09/20/16 at 23:15 Albumin Human 500 ml @ 125 mls/hr 1X ONCE IV Last administered on 09/20/16 23:47; Start 09/20/16 at 23:30; Stop 09/21/16 at 03:29; Status DC Linezolid 300 ml @ 300 mls/hr Q12HR IV Last administered on 09/21/16 10:12; Start 09/21/16 at 09:00 Meropenem 500 mg/ Sodium Chloride 50 ml @ 100 mls/hr DAILY@0800 IV Last administered on 09/21/16 10:13; Start 09/21/16 at 08:00 Micafungin Sodium 100 mg/Dextrose 100 ml @ 100 mls/hr Q24H IV Last administered on 09/21/16t 10:13; Start 09/21/16 at 10:00 Famotidine (Pepcid) 20 mg DAILY IVP ; Start 09/21/16 at 09:00 Levothyroxine Sodium 56 mcg/ Sodium Chloride 5 ml @ 100 mls/hr DAILY IVP ; Start 09/21/16 at 09:00 Fosphenytoin Sodium (Cerebyx) 100 mg Q8HRS IV ; Start 09/21/16 at 09:00 Active Scripts Active Reported Keppra (Levetiracetam) 500 Mg Tablet 500 Mg PO BID Lamictal (Lamotrigine) 100 Mg Tablet 1 Tab PO BID Lasix (Furosemide) 20 Mg Tablet 1 Tab PO DAILY Humulin 70-30 Vial (Hum Insulin Nph/Reg Insulin Hm) 100 Unit/1 Ml Vial 22 Unit SQ Q AM Synthroid (Levothyroxine Sodium) 112 Mcg Tablet 1 Tab PO DAILY Humulin 70-30 Vial (Hum Insulin Nph/Reg Insulin Hm) 100 Unit/1 Ml Vial 10 Unit SQ DAILYBFRSUP Dilantin (Phenytoin Sodium Extended) 100 Mg Capsule 300 Mg PO HS Allergies Allergies: Coded Allergies: Carbapenems (Verified Allergy, Intermediate, 08/26/16) Cephalosporins (Verified Allergy, Intermediate, 09/20/16) TOLERATES MERREM Penicillins (Verified Allergy, Intermediate, 08/26/16) aztreonam (Verified Allergy, Intermediate, 08/26/16) sulfamethoxazole (Verified Allergy, Intermediate, 08/26/16) trimethoprim (Verified Allergy, Intermediate, 08/26/16) ROS Review of System UNABLE TO OBTAIN Physical Exam General: Cooperative, No acute distress HEENT: Atraumatic, Other ([place]UC[place]) Lungs: Clear to auscultation Heart: Regular rate Abdomen: Normal bowel sounds, Soft, No tenderness Extremities: No clubbing Neuro: Other (CONFUSED) Psych/Mental Status: Other (CONFUSED) MUSCULOSKELETAL: No deformity Vitals VITALS Vital Signs Date Time Temp Pulse Resp B/P (MAP) Pulse Ox O2 Delivery O2 Flow Rate FiO2 09/21/16 07:30 99 Nasal Cannula 3.0 09/21/16 05:30 84 12 104/53 (70) 09/21/16 04:00 98.0 98.0 Labs Labs Laboratory Tests Test 09/20/16 18:30 09/20/16 19:45 09/21/16 06:45 09/21/16 07:20 White Blood Count 20.8 x10^3/uL (4.0-11.0) 12.9 x10^3/uL (4.0-11.0) Red Blood Count 3.09 x10^6/uL (4.30-5.70) 2.60 x10^6/uL (4.30-5.70) Hemoglobin 9.4 g/dL (13.0-17.5) 7.9 g/dL (13.0-17.5) Hematocrit 28.1 % (39.0-53.0) 23.6 % (39.0-53.0) Mean Corpuscular Volume 91 fL (79-100) 91 fL (79-100) Mean Corpuscular Hemoglobin 30 pg (25-35) 30 pg (25-35) Mean Corpuscular Hemoglobin Concent 33 g/dL (31-37) 33 g/dL (31-37) Red Cell Distribution Width 14.1 % (11.5-14.5) 13.5 % (11.5-14.5) Platelet Count 248 x10^3/uL (140-400) 184 x10^3/uL (140-400) Neutrophils (%) (Auto) 84 % (31-73) 88 % (31-73) Lymphocytes (%) (Auto) 8 % (24-48) 8 % (24-48) Monocytes (%) (Auto) 7 % (0-9) 4 % (0-9) Eosinophils (%) (Auto) 0 % (0-3) 0 % (0-3) Basophils (%) (Auto) 0 % (0-3) 0 % (0-3) Neutrophils # (Auto) 17.3 x10^3uL (1.8-7.7) 11.3 x10^3uL (1.8-7.7) Lymphocytes # (Auto) 1.7 x10^3/uL (1.0-4.8) 1.0 x10^3/uL (1.0-4.8) Monocytes # (Auto) 1.5 x10^3/uL (0.0-1.1) 0.5 x10^3/uL (0.0-1.1) Eosinophils # (Auto) 0.1 x10^3/uL (0.0-0.7) 0.0 x10^3/uL (0.0-0.7) Basophils # (Auto) 0.1 x10^3/uL (0.0-0.2) 0.0 x10^3/uL (0.0-0.2) Segmented Neutrophils % 89 % (35-66) Lymphocytes % 4 % (24-48) Monocytes % 7 % (0-10) Platelet Estimate Adequate (ADEQUATE) Large Platelets Occ Polychromasia Mod Basophilic Stippling Present Ovalocytes Occ Stomatocytes Occ Crenated Cell Present Sodium Level 138 mmol/L (136-145) 140 mmol/L (136-145) Potassium Level 4.4 mmol/L (3.5-5.1) 4.3 mmol/L (3.5-5.1) Chloride Level 98 mmol/L (98-107) 103 mmol/L (98-107) Carbon Dioxide Level 30 mmol/L (21-32) 25 mmol/L (21-32) Anion Gap 10 (6-14) 12 (6-14) Blood Urea Nitrogen 104 mg/dL (8-26) 95 mg/dL (8-26) Creatinine 7.0 mg/dL (0.7-1.3) 5.0 mg/dL (0.7-1.3) Estimated GFR (Cockcroft-Gault) 7.6 11.2 BUN/Creatinine Ratio 15 (6-20) 19 (6-20) Glucose Level 159 mg/dL (70-99) 221 mg/dL (70-99) Lactic Acid Level 2.0 mmol/L (0.4-2.0) Calcium Level 6.9 mg/dL (8.5-10.1) 7.0 mg/dL (8.5-10.1) Total Bilirubin 0.7 mg/dL (0.2-1.0) 0.4 mg/dL (0.2-1.0) Aspartate Amino Transf (AST/SGOT) 26 U/L (15-37) 30 U/L (15-37) Alanine Aminotransferase (ALT/SGPT) 15 U/L (16-63) 14 U/L (16-63) Alkaline Phosphatase 102 U/L (46-116) 81 U/L (46-116) Total Protein 6.4 g/dL (6.4-8.2) 6.0 g/dL (6.4-8.2) Albumin 1.7 g/dL (3.4-5.0) 2.0 g/dL (3.4-5.0) Albumin/Globulin Ratio 0.4 (1.0-1.7) 0.5 (1.0-1.7) Procalcitonin 0.99 ng/mL (0.00-0.10) Phenytoin (Dilantin) Level 1.8 mcg/mL (10.0-20.0) Phenytoin Last Dose Date 09/20/16 Phenytoin Last Dose Time 0800 O2 Saturation 91 % (92-99) Arterial Blood pH 7.30 (7.35-7.45) Arterial Blood pCO2 at Patient Temp 57 mmHg (35-46) Arterial Blood pO2 at Patient Temp 70 mmHg (65-108) Arterial Blood HCO3 28 mmol/L (21-28) Arterial Blood Base Excess 0 mmol/L (-3-3) FiO2 32 Urine Collection Type Unknown Urine Color Yellow Urine Clarity Cloudy Urine pH 6.5 Urine Specific [place] 1.015 Urine Protein 30 mg/dL (NEG-TRACE) Urine Glucose (UA) Negative mg/dL (NEG) Urine Ketones (Stick) Negative mg/dL (NEG) Urine Blood Small (NEG) Urine Nitrite Negative (NEG) Urine Bilirubin Negative (NEG) Urine Urobilinogen Dipstick 0.2 mg/dL (0.2 mg/dL) Urine Leukocyte Esterase Large (NEG) Urine RBC 0 /HPF (0-2) Urine WBC 11-20 /HPF (0-4) Urine Squamous Epithelial Cells Mod /LPF Urine Bacteria Moderate /HPF (0-FEW) Urine Mucus Mod /LPF Laboratory Tests Test 09/20/16 18:30 09/20/16 19:45 09/21/16 06:45 09/21/16 07:20 White Blood Count 20.8 x10^3/uL (4.0-11.0) 12.9 x10^3/uL (4.0-11.0) Red Blood Count 3.09 x10^6/uL (4.30-5.70) 2.60 x10^6/uL (4.30-5.70) Hemoglobin 9.4 g/dL (13.0-17.5) 7.9 g/dL (13.0-17.5) Hematocrit 28.1 % (39.0-53.0) 23.6 % (39.0-53.0) Mean Corpuscular Volume 91 fL (79-100) 91 fL (79-100) Mean Corpuscular Hemoglobin 30 pg (25-35) 30 pg (25-35) Mean Corpuscular Hemoglobin Concent 33 g/dL (31-37) 33 g/dL (31-37) Red Cell Distribution Width 14.1 % (11.5-14.5) 13.5 % (11.5-14.5) Platelet Count 248 x10^3/uL (140-400) 184 x10^3/uL (140-400) Neutrophils (%) (Auto) 84 % (31-73) 88 % (31-73) Lymphocytes (%) (Auto) 8 % (24-48) 8 % (24-48) Monocytes (%) (Auto) 7 % (0-9) 4 % (0-9) Eosinophils (%) (Auto) 0 % (0-3) 0 % (0-3) Basophils (%) (Auto) 0 % (0-3) 0 % (0-3) Neutrophils # (Auto) 17.3 x10^3uL (1.8-7.7) 11.3 x10^3uL (1.8-7.7) Lymphocytes # (Auto) 1.7 x10^3/uL (1.0-4.8) 1.0 x10^3/uL (1.0-4.8) Monocytes # (Auto) 1.5 x10^3/uL (0.0-1.1) 0.5 x10^3/uL (0.0-1.1) Eosinophils # (Auto) 0.1 x10^3/uL (0.0-0.7) 0.0 x10^3/uL (0.0-0.7) Basophils # (Auto) 0.1 x10^3/uL (0.0-0.2) 0.0 x10^3/uL (0.0-0.2) Segmented Neutrophils % 89 % (35-66) Lymphocytes % 4 % (24-48) Monocytes % 7 % (0-10) Platelet Estimate Adequate (ADEQUATE) Large Platelets Occ Polychromasia Mod Basophilic Stippling Present Ovalocytes Occ Stomatocytes Occ Crenated Cell Present Sodium Level 138 mmol/L (136-145) 140 mmol/L (136-145) Potassium Level 4.4 mmol/L (3.5-5.1) 4.3 mmol/L (3.5-5.1) Chloride Level 98 mmol/L (98-107) 103 mmol/L (98-107) Carbon Dioxide Level 30 mmol/L (21-32) 25 mmol/L (21-32) Anion Gap 10 (6-14) 12 (6-14) Blood Urea Nitrogen 104 mg/dL (8-26) 95 mg/dL (8-26) Creatinine 7.0 mg/dL (0.7-1.3) 5.0 mg/dL (0.7-1.3) Estimated GFR (Cockcroft-Gault) 7.6 11.2 BUN/Creatinine Ratio 15 (6-20) 19 (6-20) Glucose Level 159 mg/dL (70-99) 221 mg/dL (70-99) Lactic Acid Level 2.0 mmol/L (0.4-2.0) Calcium Level 6.9 mg/dL (8.5-10.1) 7.0 mg/dL (8.5-10.1) Total Bilirubin 0.7 mg/dL (0.2-1.0) 0.4 mg/dL (0.2-1.0) Aspartate Amino Transf (AST/SGOT) 26 U/L (15-37) 30 U/L (15-37) Alanine Aminotransferase (ALT/SGPT) 15 U/L (16-63) 14 U/L (16-63) Alkaline Phosphatase 102 U/L (46-116) 81 U/L (46-116) Total Protein 6.4 g/dL (6.4-8.2) 6.0 g/dL (6.4-8.2) Albumin 1.7 g/dL (3.4-5.0) 2.0 g/dL (3.4-5.0) Albumin/Globulin Ratio 0.4 (1.0-1.7) 0.5 (1.0-1.7) Procalcitonin 0.99 ng/mL (0.00-0.10) Phenytoin (Dilantin) Level 1.8 mcg/mL (10.0-20.0) Phenytoin Last Dose Date 09/20/16 Phenytoin Last Dose Time 0800 O2 Saturation 91 % (92-99) Arterial Blood pH 7.30 (7.35-7.45) Arterial Blood pCO2 at Patient Temp 57 mmHg (35-46) Arterial Blood pO2 at Patient Temp 70 mmHg (65-108) Arterial Blood HCO3 28 mmol/L (21-28) Arterial Blood Base Excess 0 mmol/L (-3-3) FiO2 32 Urine Collection Type Unknown Urine Color Yellow Urine Clarity Cloudy Urine pH 6.5 Urine Specific [place] 1.015 Urine Protein 30 mg/dL (NEG-TRACE) Urine Glucose (UA) Negative mg/dL (NEG) Urine Ketones (Stick) Negative mg/dL (NEG) Urine Blood Small (NEG) Urine Nitrite Negative (NEG) Urine Bilirubin Negative (NEG) Urine Urobilinogen Dipstick 0.2 mg/dL (0.2 mg/dL) Urine Leukocyte Esterase Large (NEG) Urine RBC 0 /HPF (0-2) Urine WBC 11-20 /HPF (0-4) Urine Squamous Epithelial Cells Mod /LPF Urine Bacteria Moderate /HPF (0-FEW) Urine Mucus Mod /LPF Assessment/Plan Assessment/Plan IMP KINZA-NO CKD HYPOTENSION SEPSIS MET ENCEPHALOPATHY LEUCOCYTOSIS ANEMIA URINARY RETENTION URINARY TRACT INFECTION SEIZURES DM II PLAN PPN IVF'S PRESSORS ANTIBIOTICS ARANESP HOLD HIS LASIX SUPPORTIVE CARE RANDY AWAN MD Sep 21, 2016 10:29
--- NOTE | 2016-09-21 10:38 | PDOC ---
PROGRESS NOTES Chief Complaint Chief Complaint Severe Sepsis with shock needing pressors ACUTE RENAL fAILURE with oliguria POA NO known CKD prior to admit ANemia likely of chronic dse HX epilepsy Metabolic encephalopathy INmate moderate/severe malnutrition Atelectasis UTI History of Present Illness History of Present Illness Seen in ICU MIttens on, security at bedside Wakes to me but does not answer appropriatelyAHs been an inmate since 2001. As per security, his mentation./behavior is now at baseline ON levophed CReat down to 5 from 7 from 9 UO picking up, 300cc in evelyn last 2-3 hrs NO AGAP, bicarb ok WBC down to1 2 from 20 CXR atelectasis only] UTI on UA - on doxy zyvox and micafungin BS 200s, on novolog and levemir On hydrocort 100 q8 too PLAN: MANOJ stephenson - already on PPI IV MIght need to adjust insulin regimen, will see how she trends Keep in ICU as still on levo ON IV keppra - neuro note reviewed ATivan prn for seizures Renal consulted re SIGNIF KINZA (Creat 9 on admit) - renal panel daily LIkely renal sono if one doenrecently - will defer to renal COnt Antibiotic for uTI Follow urine cx DVT prophy heparin SQ - already on q12 NUtrition consult for PCM 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 Vitals Vitals Vital Signs Date Time Temp Pulse Resp B/P (MAP) Pulse Ox O2 Delivery O2 Flow Rate FiO2 09/21/16 07:30 99 Nasal Cannula 3.0 09/21/16 05:30 84 12 104/53 (70) 09/21/16 04:00 98.0 98.0 Physical Exam General: moderate distress, Other (poorly cooperatve, non sensical statements , some agitation) Lungs: Clear Abdomen: Other (a little firm, ostomy appears clear, bowel sounds present) Extremities: No clubbing, No cyanosis Skin: No rashes, No breakdown, No significant lesion Labs LABS Laboratory Tests Test 09/20/16 18:30 09/20/16 19:45 09/21/16 06:45 09/21/16 07:20 White Blood Count 20.8 x10^3/uL (4.0-11.0) 12.9 x10^3/uL (4.0-11.0) Red Blood Count 3.09 x10^6/uL (4.30-5.70) 2.60 x10^6/uL (4.30-5.70) Hemoglobin 9.4 g/dL (13.0-17.5) 7.9 g/dL (13.0-17.5) Hematocrit 28.1 % (39.0-53.0) 23.6 % (39.0-53.0) Mean Corpuscular Volume 91 fL (79-100) 91 fL (79-100) Mean Corpuscular Hemoglobin 30 pg (25-35) 30 pg (25-35) Mean Corpuscular Hemoglobin Concent 33 g/dL (31-37) 33 g/dL (31-37) Red Cell Distribution Width 14.1 % (11.5-14.5) 13.5 % (11.5-14.5) Platelet Count 248 x10^3/uL (140-400) 184 x10^3/uL (140-400) Neutrophils (%) (Auto) 84 % (31-73) 88 % (31-73) Lymphocytes (%) (Auto) 8 % (24-48) 8 % (24-48) Monocytes (%) (Auto) 7 % (0-9) 4 % (0-9) Eosinophils (%) (Auto) 0 % (0-3) 0 % (0-3) Basophils (%) (Auto) 0 % (0-3) 0 % (0-3) Neutrophils # (Auto) 17.3 x10^3uL (1.8-7.7) 11.3 x10^3uL (1.8-7.7) Lymphocytes # (Auto) 1.7 x10^3/uL (1.0-4.8) 1.0 x10^3/uL (1.0-4.8) Monocytes # (Auto) 1.5 x10^3/uL (0.0-1.1) 0.5 x10^3/uL (0.0-1.1) Eosinophils # (Auto) 0.1 x10^3/uL (0.0-0.7) 0.0 x10^3/uL (0.0-0.7) Basophils # (Auto) 0.1 x10^3/uL (0.0-0.2) 0.0 x10^3/uL (0.0-0.2) Segmented Neutrophils % 89 % (35-66) Lymphocytes % 4 % (24-48) Monocytes % 7 % (0-10) Platelet Estimate Adequate (ADEQUATE) Large Platelets Occ Polychromasia Mod Basophilic Stippling Present Ovalocytes Occ Stomatocytes Occ Crenated Cell Present Sodium Level 138 mmol/L (136-145) 140 mmol/L (136-145) Potassium Level 4.4 mmol/L (3.5-5.1) 4.3 mmol/L (3.5-5.1) Chloride Level 98 mmol/L (98-107) 103 mmol/L (98-107) Carbon Dioxide Level 30 mmol/L (21-32) 25 mmol/L (21-32) Anion Gap 10 (6-14) 12 (6-14) Blood Urea Nitrogen 104 mg/dL (8-26) 95 mg/dL (8-26) Creatinine 7.0 mg/dL (0.7-1.3) 5.0 mg/dL (0.7-1.3) Estimated GFR (Cockcroft-Gault) 7.6 11.2 BUN/Creatinine Ratio 15 (6-20) 19 (6-20) Glucose Level 159 mg/dL (70-99) 221 mg/dL (70-99) Lactic Acid Level 2.0 mmol/L (0.4-2.0) Calcium Level 6.9 mg/dL (8.5-10.1) 7.0 mg/dL (8.5-10.1) Total Bilirubin 0.7 mg/dL (0.2-1.0) 0.4 mg/dL (0.2-1.0) Aspartate Amino Transf (AST/SGOT) 26 U/L (15-37) 30 U/L (15-37) Alanine Aminotransferase (ALT/SGPT) 15 U/L (16-63) 14 U/L (16-63) Alkaline Phosphatase 102 U/L (46-116) 81 U/L (46-116) Total Protein 6.4 g/dL (6.4-8.2) 6.0 g/dL (6.4-8.2) Albumin 1.7 g/dL (3.4-5.0) 2.0 g/dL (3.4-5.0) Albumin/Globulin Ratio 0.4 (1.0-1.7) 0.5 (1.0-1.7) Procalcitonin 0.99 ng/mL (0.00-0.10) Phenytoin (Dilantin) Level 1.8 mcg/mL (10.0-20.0) Phenytoin Last Dose Date 09/20/16 Phenytoin Last Dose Time 0800 O2 Saturation 91 % (92-99) Arterial Blood pH 7.30 (7.35-7.45) Arterial Blood pCO2 at Patient Temp 57 mmHg (35-46) Arterial Blood pO2 at Patient Temp 70 mmHg (65-108) Arterial Blood HCO3 28 mmol/L (21-28) Arterial Blood Base Excess 0 mmol/L (-3-3) FiO2 32 Urine Collection Type Unknown Urine Color Yellow Urine Clarity Cloudy Urine pH 6.5 Urine Specific Tracy 1.015 Urine Protein 30 mg/dL (NEG-TRACE) Urine Glucose (UA) Negative mg/dL (NEG) Urine Ketones (Stick) Negative mg/dL (NEG) Urine Blood Small (NEG) Urine Nitrite Negative (NEG) Urine Bilirubin Negative (NEG) Urine Urobilinogen Dipstick 0.2 mg/dL (0.2 mg/dL) Urine Leukocyte Esterase Large (NEG) Urine RBC 0 /HPF (0-2) Urine WBC 11-20 /HPF (0-4) Urine Squamous Epithelial Cells Mod /LPF Urine Bacteria Moderate /HPF (0-FEW) Urine Mucus Mod /LPF Review of Systems Review of Systems confused - baseline, hard to obtain Comment Review of Relevant I have reviewed the following items juliocesar (where applicable) has been applied. Labs Laboratory Tests Test 09/20/16 18:30 09/20/16 19:45 09/21/16 06:45 09/21/16 07:20 White Blood Count 20.8 x10^3/uL (4.0-11.0) 12.9 x10^3/uL (4.0-11.0) Red Blood Count 3.09 x10^6/uL (4.30-5.70) 2.60 x10^6/uL (4.30-5.70) Hemoglobin 9.4 g/dL (13.0-17.5) 7.9 g/dL (13.0-17.5) Hematocrit 28.1 % (39.0-53.0) 23.6 % (39.0-53.0) Mean Corpuscular Volume 91 fL (79-100) 91 fL (79-100) Mean Corpuscular Hemoglobin 30 pg (25-35) 30 pg (25-35) Mean Corpuscular Hemoglobin Concent 33 g/dL (31-37) 33 g/dL (31-37) Red Cell Distribution Width 14.1 % (11.5-14.5) 13.5 % (11.5-14.5) Platelet Count 248 x10^3/uL (140-400) 184 x10^3/uL (140-400) Neutrophils (%) (Auto) 84 % (31-73) 88 % (31-73) Lymphocytes (%) (Auto) 8 % (24-48) 8 % (24-48) Monocytes (%) (Auto) 7 % (0-9) 4 % (0-9) Eosinophils (%) (Auto) 0 % (0-3) 0 % (0-3) Basophils (%) (Auto) 0 % (0-3) 0 % (0-3) Neutrophils # (Auto) 17.3 x10^3uL (1.8-7.7) 11.3 x10^3uL (1.8-7.7) Lymphocytes # (Auto) 1.7 x10^3/uL (1.0-4.8) 1.0 x10^3/uL (1.0-4.8) Monocytes # (Auto) 1.5 x10^3/uL (0.0-1.1) 0.5 x10^3/uL (0.0-1.1) Eosinophils # (Auto) 0.1 x10^3/uL (0.0-0.7) 0.0 x10^3/uL (0.0-0.7) Basophils # (Auto) 0.1 x10^3/uL (0.0-0.2) 0.0 x10^3/uL (0.0-0.2) Segmented Neutrophils % 89 % (35-66) Lymphocytes % 4 % (24-48) Monocytes % 7 % (0-10) Platelet Estimate Adequate (ADEQUATE) Large Platelets Occ Polychromasia Mod Basophilic Stippling Present Ovalocytes Occ Stomatocytes Occ Crenated Cell Present Sodium Level 138 mmol/L (136-145) 140 mmol/L (136-145) Potassium Level 4.4 mmol/L (3.5-5.1) 4.3 mmol/L (3.5-5.1) Chloride Level 98 mmol/L (98-107) 103 mmol/L (98-107) Carbon Dioxide Level 30 mmol/L (21-32) 25 mmol/L (21-32) Anion Gap 10 (6-14) 12 (6-14) Blood Urea Nitrogen 104 mg/dL (8-26) 95 mg/dL (8-26) Creatinine 7.0 mg/dL (0.7-1.3) 5.0 mg/dL (0.7-1.3) Estimated GFR (Cockcroft-Gault) 7.6 11.2 BUN/Creatinine Ratio 15 (6-20) 19 (6-20) Glucose Level 159 mg/dL (70-99) 221 mg/dL (70-99) Lactic Acid Level 2.0 mmol/L (0.4-2.0) Calcium Level 6.9 mg/dL (8.5-10.1) 7.0 mg/dL (8.5-10.1) Total Bilirubin 0.7 mg/dL (0.2-1.0) 0.4 mg/dL (0.2-1.0) Aspartate Amino Transf (AST/SGOT) 26 U/L (15-37) 30 U/L (15-37) Alanine Aminotransferase (ALT/SGPT) 15 U/L (16-63) 14 U/L (16-63) Alkaline Phosphatase 102 U/L (46-116) 81 U/L (46-116) Total Protein 6.4 g/dL (6.4-8.2) 6.0 g/dL (6.4-8.2) Albumin 1.7 g/dL (3.4-5.0) 2.0 g/dL (3.4-5.0) Albumin/Globulin Ratio 0.4 (1.0-1.7) 0.5 (1.0-1.7) Procalcitonin 0.99 ng/mL (0.00-0.10) Phenytoin (Dilantin) Level 1.8 mcg/mL (10.0-20.0) Phenytoin Last Dose Date 09/20/16 Phenytoin Last Dose Time 0800 O2 Saturation 91 % (92-99) Arterial Blood pH 7.30 (7.35-7.45) Arterial Blood pCO2 at Patient Temp 57 mmHg (35-46) Arterial Blood pO2 at Patient Temp 70 mmHg (65-108) Arterial Blood HCO3 28 mmol/L (21-28) Arterial Blood Base Excess 0 mmol/L (-3-3) FiO2 32 Urine Collection Type Unknown Urine Color Yellow Urine Clarity Cloudy Urine pH 6.5 Urine Specific Tracy 1.015 Urine Protein 30 mg/dL (NEG-TRACE) Urine Glucose (UA) Negative mg/dL (NEG) Urine Ketones (Stick) Negative mg/dL (NEG) Urine Blood Small (NEG) Urine Nitrite Negative (NEG) Urine Bilirubin Negative (NEG) Urine Urobilinogen Dipstick 0.2 mg/dL (0.2 mg/dL) Urine Leukocyte Esterase Large (NEG) Urine RBC 0 /HPF (0-2) Urine WBC 11-20 /HPF (0-4) Urine Squamous Epithelial Cells Mod /LPF Urine Bacteria Moderate /HPF (0-FEW) Urine Mucus Mod /LPF Laboratory Tests Test 09/20/16 18:30 09/20/16 19:45 09/21/16 06:45 09/21/16 07:20 White Blood Count 20.8 x10^3/uL (4.0-11.0) 12.9 x10^3/uL (4.0-11.0) Red Blood Count 3.09 x10^6/uL (4.30-5.70) 2.60 x10^6/uL (4.30-5.70) Hemoglobin 9.4 g/dL (13.0-17.5) 7.9 g/dL (13.0-17.5) Hematocrit 28.1 % (39.0-53.0) 23.6 % (39.0-53.0) Mean Corpuscular Volume 91 fL (79-100) 91 fL (79-100) Mean Corpuscular Hemoglobin 30 pg (25-35) 30 pg (25-35) Mean Corpuscular Hemoglobin Concent 33 g/dL (31-37) 33 g/dL (31-37) Red Cell Distribution Width 14.1 % (11.5-14.5) 13.5 % (11.5-14.5) Platelet Count 248 x10^3/uL (140-400) 184 x10^3/uL (140-400) Neutrophils (%) (Auto) 84 % (31-73) 88 % (31-73) Lymphocytes (%) (Auto) 8 % (24-48) 8 % (24-48) Monocytes (%) (Auto) 7 % (0-9) 4 % (0-9) Eosinophils (%) (Auto) 0 % (0-3) 0 % (0-3) Basophils (%) (Auto) 0 % (0-3) 0 % (0-3) Neutrophils # (Auto) 17.3 x10^3uL (1.8-7.7) 11.3 x10^3uL (1.8-7.7) Lymphocytes # (Auto) 1.7 x10^3/uL (1.0-4.8) 1.0 x10^3/uL (1.0-4.8) Monocytes # (Auto) 1.5 x10^3/uL (0.0-1.1) 0.5 x10^3/uL (0.0-1.1) Eosinophils # (Auto) 0.1 x10^3/uL (0.0-0.7) 0.0 x10^3/uL (0.0-0.7) Basophils # (Auto) 0.1 x10^3/uL (0.0-0.2) 0.0 x10^3/uL (0.0-0.2) Segmented Neutrophils % 89 % (35-66) Lymphocytes % 4 % (24-48) Monocytes % 7 % (0-10) Platelet Estimate Adequate (ADEQUATE) Large Platelets Occ Polychromasia Mod Basophilic Stippling Present Ovalocytes Occ Stomatocytes Occ Crenated Cell Present Sodium Level 138 mmol/L (136-145) 140 mmol/L (136-145) Potassium Level 4.4 mmol/L (3.5-5.1) 4.3 mmol/L (3.5-5.1) Chloride Level 98 mmol/L (98-107) 103 mmol/L (98-107) Carbon Dioxide Level 30 mmol/L (21-32) 25 mmol/L (21-32) Anion Gap 10 (6-14) 12 (6-14) Blood Urea Nitrogen 104 mg/dL (8-26) 95 mg/dL (8-26) Creatinine 7.0 mg/dL (0.7-1.3) 5.0 mg/dL (0.7-1.3) Estimated GFR (Cockcroft-Gault) 7.6 11.2 BUN/Creatinine Ratio 15 (6-20) 19 (6-20) Glucose Level 159 mg/dL (70-99) 221 mg/dL (70-99) Lactic Acid Level 2.0 mmol/L (0.4-2.0) Calcium Level 6.9 mg/dL (8.5-10.1) 7.0 mg/dL (8.5-10.1) Total Bilirubin 0.7 mg/dL (0.2-1.0) 0.4 mg/dL (0.2-1.0) Aspartate Amino Transf (AST/SGOT) 26 U/L (15-37) 30 U/L (15-37) Alanine Aminotransferase (ALT/SGPT) 15 U/L (16-63) 14 U/L (16-63) Alkaline Phosphatase 102 U/L (46-116) 81 U/L (46-116) Total Protein 6.4 g/dL (6.4-8.2) 6.0 g/dL (6.4-8.2) Albumin 1.7 g/dL (3.4-5.0) 2.0 g/dL (3.4-5.0) Albumin/Globulin Ratio 0.4 (1.0-1.7) 0.5 (1.0-1.7) Procalcitonin 0.99 ng/mL (0.00-0.10) Phenytoin (Dilantin) Level 1.8 mcg/mL (10.0-20.0) Phenytoin Last Dose Date 09/20/16 Phenytoin Last Dose Time 0800 O2 Saturation 91 % (92-99) Arterial Blood pH 7.30 (7.35-7.45) Arterial Blood pCO2 at Patient Temp 57 mmHg (35-46) Arterial Blood pO2 at Patient Temp 70 mmHg (65-108) Arterial Blood HCO3 28 mmol/L (21-28) Arterial Blood Base Excess 0 mmol/L (-3-3) FiO2 32 Urine Collection Type Unknown Urine Color Yellow Urine Clarity Cloudy Urine pH 6.5 Urine Specific Tracy 1.015 Urine Protein 30 mg/dL (NEG-TRACE) Urine Glucose (UA) Negative mg/dL (NEG) Urine Ketones (Stick) Negative mg/dL (NEG) Urine Blood Small (NEG) Urine Nitrite Negative (NEG) Urine Bilirubin Negative (NEG) Urine Urobilinogen Dipstick 0.2 mg/dL (0.2 mg/dL) Urine Leukocyte Esterase Large (NEG) Urine RBC 0 /HPF (0-2) Urine WBC 11-20 /HPF (0-4) Urine Squamous Epithelial Cells Mod /LPF Urine Bacteria Moderate /HPF (0-FEW) Urine Mucus Mod /LPF Medications Current Medications Sodium Chloride 1,000 ml @ 1,000 mls/hr 1X ONCE IV Last administered on 19:49; Start 09/20/16 at 17:15; Stop 09/20/16 at 18:14; Status DC Sodium Chloride 1,000 ml @ 1,000 mls/hr 1X ONCE IV Last administered on 19:51; Start 09/20/16 at 17:15; Stop 09/20/16 at 18:14; Status DC Vancomycin HCl (Vanco Per Pharmacy) 1 each PRN DAILY PRN MC SEE COMMENTS Last administered on 09/20/16 19:32; Start 09/20/16 at 17:15; Stop 09/21/16 at 07:43 ; Status DC Piperacillin Sod/ Tazobactam Sod (Zosyn Per Pharmacy) 1 each PRN DAILY PRN MC SEE COMMENTS; Start 09/20/16 at 17:15; Stop 09/20/16 at 17:15; Status DC Sodium Chloride 1,000 ml @ 200 mls/hr Q5H IV Last administered on 09/21/16 06 :46; Start 09/20/16 at 17:15 Hydrocortisone Sodium Succinate (Solu-CORTEF) 100 mg 1X ONCE IV Last administered on 09/20/16 19:50; Start 09/20/16 at 17:15; Stop 09/20/16 at 17:16 ; Status DC Hydrocortisone Sodium Succinate (Solu-CORTEF) 100 mg Q8HRS IV Last administered on 09/21/16 05:56; Start 09/20/16 at 22:00 Vancomycin HCl 2 gm/Sodium Chloride 500 ml @ 250 mls/hr 1X ONCE IV ; Start at 17:15; Stop 09/20/16 at 19:14; Status Cancel Piperacillin Sod/ Tazobactam Sod 4.5 gm/Sodium Chloride 100 ml @ 200 mls/hr Q6HRS IV ; Start 09/20/16 at 18:00; Stop 09/20/16 at 18:00; Status DC Albuterol/ Ipratropium (Duoneb) 3 ml RTQID NEB Last administered on 09/21/16 07:30; Start 09/20/16 at 17:30 Calcium Carbonate/ Glycine (Tums) 500 mg TID PO ; Start 09/20/16 at 21:00 Docusate Sodium (Colace) 100 mg BID PO ; Start 09/20/16 at 21:00 Lamotrigine (LaMICtal) 100 mg BID PO ; Start 09/20/16 at 21:00; Stop 09/20/16 at 21:00; Status DC Levothyroxine Sodium (Synthroid) 112 mcg DAILY PO ; Start 09/21/16 at 09:00; Stop 09/21/16 at 09:00; Status DC Ondansetron HCl (Zofran Odt) 4 mg PRN Q4HRS PRN PO NAUSEA/VOMITING; Start 09/20 at 17:30 Phenytoin Sodium (Dilantin) 300 mg HS PO ; Start 09/20/16 at 21:00; Stop at 21:00; Status DC Capsaicin (Zostrix) 1 loulou BID TP Last administered on 09/21/16 09:06; Start at 21:00 Artificial Tears (Artificial Tears) 1 drop BID OU Last administered on 09:06; Start 09/20/16 at 21:00 Insulin Aspart Prota 70%/Aspart 30% (Novolog Mix 70-30) 10 units DAILYBFRSUP SQ ; Start 09/20/16 at 17:45 Insulin Aspart Prota 70%/Aspart 30% (Novolog Mix 70-30) 22 units DAILYAC SQ ; Start 09/21/16 at 07:30 Famotidine (Pepcid) 20 mg BID PO ; Start 09/20/16 at 21:00; Stop 09/21/16 at 08: 25; Status DC Heparin Sodium (Porcine) (Heparin Sq) 5,000 unit Q12HR SQ Last administered on 09/20/16 21:13; Start 09/20/16 at 21:00 Levetiracetam (Keppra) 500 mg BID PO ; Start 09/20/16 at 21:00; Stop 09/20/16 at 21:00; Status DC Doxycycline Hyclate 100 mg/ Dextrose 100 ml @ 50 mls/hr Q12HR IV Last administered on 09/21/16 09:05; Start 09/20/16 at 21:00 Vancomycin HCl 1 each 1X ONCE MC ; Start 09/22/16 at 16:00; Stop 09/22/16 at 16 :00; Status DC Levetiracetam 500 mg/Sodium Chloride 100 ml @ 400 mls/hr Q12HR IV Last administered on 09/21/16 10:14; Start 09/20/16 at 21:00 Norepinephrine Bitartrate 250 ml @ 0 mls/hr CONT PRN IV SEE I/O RECORD Last administered on 09/21/16 07:27; Start 09/20/16 at 21:45 Morphine Sulfate 4 mg PRN Q2HR PRN IV SEVERE PAIN Last administered on 23:47; Start 09/20/16 at 23:15 Albumin Human 500 ml @ 125 mls/hr 1X ONCE IV Last administered on 09/20/16 23:47; Start 09/20/16 at 23:30; Stop 09/21/16 at 03:29; Status DC Linezolid 300 ml @ 300 mls/hr Q12HR IV Last administered on 09/21/16 10:12; Start 09/21/16 at 09:00 Meropenem 500 mg/ Sodium Chloride 50 ml @ 100 mls/hr DAILY@0800 IV Last administered on 09/21/16 10:13; Start 09/21/16 at 08:00 Micafungin Sodium 100 mg/Dextrose 100 ml @ 100 mls/hr Q24H IV Last administered on 09/21/16 10:13; Start 09/21/16 at 10:00 Famotidine (Pepcid) 20 mg DAILY IVP ; Start 09/21/16 at 09:00 Levothyroxine Sodium 56 mcg/ Sodium Chloride 5 ml @ 100 mls/hr DAILY IVP ; Start 09/21/16 at 09:00 Fosphenytoin Sodium (Cerebyx) 100 mg Q8HRS IV ; Start 09/21/16 at 09:00 Active Scripts Active Reported Keppra (Levetiracetam) 500 Mg Tablet 500 Mg PO BID Lamictal (Lamotrigine) 100 Mg Tablet 1 Tab PO BID Lasix (Furosemide) 20 Mg Tablet 1 Tab PO DAILY Humulin 70-30 Vial (Hum Insulin Nph/Reg Insulin Hm) 100 Unit/1 Ml Vial 22 Unit SQ Q AM Synthroid (Levothyroxine Sodium) 112 Mcg Tablet 1 Tab PO DAILY Humulin 70-30 Vial (Hum Insulin Nph/Reg Insulin Hm) 100 Unit/1 Ml Vial 10 Unit SQ DAILYBFRSUP Dilantin (Phenytoin Sodium Extended) 100 Mg Capsule 300 Mg PO HS Vitals/I & O Vital Sign - Last 24 Hours 09/20/16 09/20/16 09/20/16 09/20/16 16:45 16:55 16:55 17:00 Temp 98.8 98.8 Pulse 104 120 122 Resp 21 32 28 B/P (MAP) 60/24 (36) 61/38 (46) 129/45 (73) Pulse Ox 96 96 94 O2 Delivery Nasal Cannula Nasal Cannula Nasal Cannula Nasal Cannula O2 Flow Rate 3.0 3.0 3.0 3.0 09/20/16 09/20/16 09/20/16 09/20/16 17:15 17:30 17:45 18:00 Pulse 120 94 110 102 Resp 30 21 40 18 B/P (MAP) 106/96 (99) 103/53 (70) 106/71 (83) 77/40 (52) Pulse Ox 96 94 94 94 O2 Delivery Nasal Cannula Nasal Cannula Nasal Cannula Nasal Cannula O2 Flow Rate 3.0 3.0 3.0 3.0 09/20/16 09/20/16 09/20/16 09/20/16 19:00 19:40 20:00 20:00 Temp 98.1 98.1 Pulse 97 88 Resp 16 14 B/P (MAP) 81/53 (62) 112/52 (72) Pulse Ox 95 95 98 O2 Delivery Nasal Cannula Nasal Cannula Nasal Cannula Nasal Cannula O2 Flow Rate 3.0 3.0 4.0 3.0 09/20/16 09/20/16 09/20/16 09/20/16 21:00 22:00 23:00 23:47 Pulse 88 98 87 Resp 18 22 15 21 B/P (MAP) 114/55 (74) 93/53 (66) 126/58 (80) Pulse Ox 99 98 98 99 O2 Delivery Nasal Cannula Nasal Cannula Nasal Cannula Nasal Cannula O2 Flow Rate 4.0 4.0 4.0 4.0 09/21/16 09/21/16 09/21/16 09/21/16 00:00 00:00 00:15 00:25 Temp 98.2 98.2 Pulse 91 87 Resp 20 16 16 B/P (MAP) 109/84 (92) 91/46 (61) Pulse Ox 97 100 100 O2 Delivery Nasal Cannula Nasal Cannula Nasal Cannula Nasal Cannula O2 Flow Rate 4.0 4.0 4.0 4.0 09/21/16 09/21/16 09/21/16 09/21/16 01:00 02:00 03:00 04:00 Pulse 87 110 86 Resp 12 22 B/P (MAP) 120/52 (74) 110/49 (69) 133/59 (83) Pulse Ox 100 99 99 O2 Delivery Nasal Cannula Nasal Cannula Nasal Cannula Nasal Cannula O2 Flow Rate 4.0 4.0 4.0 4.0 09/21/16 09/21/16 09/21/16 09/21/16 04:00 05:00 05:30 07:30 Temp 98.0 98.0 Pulse 86 85 84 Resp 18 14 12 B/P (MAP) 127/54 (78) 131/53 (79) 104/53 (70) Pulse Ox 96 97 97 99 O2 Delivery Nasal Cannula Nasal Cannula Nasal Cannula Nasal Cannula O2 Flow Rate 4.0 4.0 4.0 3.0 Intake and Output 09/20/16 09/20/16 09/21/16 15:00 23:00 07:00 Intake Total 2500 ml 2706 ml Output Total 310 ml 935 ml Balance 2190 ml 1771 ml VIKA BARFIELD MD Sep 21, 2016 10:38
[2016-09-21] MEDS: HEPARIN PF for SUB-Q USE 5,000 UNIT/0.5 ML VIAL. SQ SCH ×2 (14:34→21:00)
[2016-09-21] MEDS: AMINO AC 3%/ELECTROLYTE/GLYCER 1,000 ML IV SCH (14:36)
--- NOTE | 2016-09-21 15:09 | PDOC2 ---
Pulmonary Consultation PT SEEN IN CONSULT FOR RESP DISTRESS WAS NOTE IN [facility] TO BE CONFUSED AND SOA PT NOW STILL ENCEPHALOPATHIC UNABLE TO PROVIDE ANY HISTORY Problems: Medical History DM, SEIZURES RECENT SURGERY FOR ISCHEMIC BOWEL Medications Current Medications Sodium Chloride 1,000 ml @ 1,000 mls/hr 1X ONCE IV Last administered on 19:49; Start 09/20/16 at 17:15; Stop 09/20/16 at 18:14; Status DC Sodium Chloride 1,000 ml @ 1,000 mls/hr 1X ONCE IV Last administered on 19:51; Start 09/20/16 at 17:15; Stop 09/20/16 at 18:14; Status DC Vancomycin HCl (Vanco Per Pharmacy) 1 each PRN DAILY PRN MC SEE COMMENTS Last administered on 09/20/16 19:32; Start 09/20/16 at 17:15; Stop 09/21/16 at 07:43 ; Status DC Piperacillin Sod/ Tazobactam Sod (Zosyn Per Pharmacy) 1 each PRN DAILY PRN MC SEE COMMENTS; Start 09/20/16 at 17:15; Stop 09/20/16 at 17:15; Status DC Sodium Chloride 1,000 ml @ 100 mls/hr Q10H IV Last administered on 09/21/16 06:46; Start 09/20/16 at 17:15 Hydrocortisone Sodium Succinate (Solu-CORTEF) 100 mg 1X ONCE IV Last administered on 09/20/16 19:50; Start 09/20/16 at 17:15; Stop 09/20/16 at 17:16 ; Status DC Hydrocortisone Sodium Succinate (Solu-CORTEF) 100 mg Q8HRS IV Last administered on 09/21/16 14:12; Start 09/20/16 at 22:00 Vancomycin HCl 2 gm/Sodium Chloride 500 ml @ 250 mls/hr 1X ONCE IV ; Start at 17:15; Stop 09/20/16 at 19:14; Status Cancel Piperacillin Sod/ Tazobactam Sod 4.5 gm/Sodium Chloride 100 ml @ 200 mls/hr Q6HRS IV ; Start 09/20/16 at 18:00; Stop 09/20/16 at 18:00; Status DC Albuterol/ Ipratropium (Duoneb) 3 ml RTQID NEB Last administered on 09/21/16 11:49; Start 09/20/16 at 17:30 Calcium Carbonate/ Glycine (Tums) 500 mg TID PO ; Start 09/20/16 at 21:00 Docusate Sodium (Colace) 100 mg BID PO ; Start 09/20/16 at 21:00 Lamotrigine (LaMICtal) 100 mg BID PO ; Start 09/20/16 at 21:00; Stop 09/20/16 at 21:00; Status DC Levothyroxine Sodium (Synthroid) 112 mcg DAILY PO ; Start 09/21/16 at 09:00; Stop 09/21/16 at 09:00; Status DC Ondansetron HCl (Zofran Odt) 4 mg PRN Q4HRS PRN PO NAUSEA/VOMITING; Start 09/20 at 17:30 Phenytoin Sodium (Dilantin) 300 mg HS PO ; Start 09/20/16 at 21:00; Stop at 21:00; Status DC Capsaicin (Zostrix) 1 loulou BID TP Last administered on 09/21/16 09:06; Start at 21:00 Artificial Tears (Artificial Tears) 1 drop BID OU Last administered on 09:06; Start 09/20/16 at 21:00 Insulin Aspart Prota 70%/Aspart 30% (Novolog Mix 70-30) 10 units DAILYBFRSUP SQ ; Start 09/20/16 at 17:45 Insulin Aspart Prota 70%/Aspart 30% (Novolog Mix 70-30) 22 units DAILYAC SQ ; Start 09/21/16 at 07:30 Famotidine (Pepcid) 20 mg BID PO ; Start 09/20/16 at 21:00; Stop 09/21/16 at 08: 25; Status DC Heparin Sodium (Porcine) (Heparin Sq) 5,000 unit Q12HR SQ Last administered on 09/21/16 14:34; Start 09/20/16 at 21:00 Levetiracetam (Keppra) 500 mg BID PO ; Start 09/20/16 at 21:00; Stop 09/20/16 at 21:00; Status DC Doxycycline Hyclate 100 mg/ Dextrose 100 ml @ 50 mls/hr Q12HR IV Last administered on 09/21/16 09:05; Start 09/20/16 at 21:00 Vancomycin HCl 1 each 1X ONCE MC ; Start 09/22/16 at 16:00; Stop 09/22/16 at 16 :00; Status DC Levetiracetam 500 mg/Sodium Chloride 100 ml @ 400 mls/hr Q12HR IV Last administered on 09/21/16 10:14; Start 09/20/16 at 21:00 Norepinephrine Bitartrate 250 ml @ 0 mls/hr CONT PRN IV SEE I/O RECORD Last administered on 09/21/16 07:27; Start 09/20/16 at 21:45 Morphine Sulfate 4 mg PRN Q2HR PRN IV SEVERE PAIN Last administered on 23:47; Start 09/20/16 at 23:15 Albumin Human 500 ml @ 125 mls/hr 1X ONCE IV Last administered on 09/20/16 23:47; Start 09/20/16 at 23:30; Stop 09/21/16 at 03:29; Status DC Linezolid 300 ml @ 300 mls/hr Q12HR IV Last administered on 09/21/16 10:12; Start 09/21/16 at 09:00 Meropenem 500 mg/ Sodium Chloride 50 ml @ 100 mls/hr DAILY@0800 IV Last administered on 09/21/16 10:13; Start 09/21/16 at 08:00 Micafungin Sodium 100 mg/Dextrose 100 ml @ 100 mls/hr Q24H IV Last administered on 09/21/16 10:13; Start 09/21/16 at 10:00 Famotidine (Pepcid) 20 mg DAILY IVP Last administered on 09/21/16 09:00; Start 09/21/16 at 09:00 Levothyroxine Sodium 56 mcg/ Sodium Chloride 5 ml @ 100 mls/hr DAILY IVP Last administered on 09/21/16 10:22; Start 09/21/16 at 09:00 Fosphenytoin Sodium (Cerebyx) 100 mg Q8HRS IV Last administered on 09/21/16 14 :01; Start 09/21/16 at 09:00 Amino Acids/ Glycerin/ Electrolytes 1,000 ml @ 80 mls/hr [id number] IV Last administered on 6/27/17at 14:36; Start 09/21/16 at 10:30 Active Scripts Active Reported Keppra (Levetiracetam) 500 Mg Tablet 500 Mg PO BID Lamictal (Lamotrigine) 100 Mg Tablet 1 Tab PO BID Lasix (Furosemide) 20 Mg Tablet 1 Tab PO DAILY Humulin 70-30 Vial (Hum Insulin Nph/Reg Insulin Hm) 100 Unit/1 Ml Vial 22 Unit SQ Q AM Synthroid (Levothyroxine Sodium) 112 Mcg Tablet 1 Tab PO DAILY Humulin 70-30 Vial (Hum Insulin Nph/Reg Insulin Hm) 100 Unit/1 Ml Vial 10 Unit SQ DAILYBFRSUP Dilantin (Phenytoin Sodium Extended) 100 Mg Capsule 300 Mg PO HS Allergies Allergies Coded Allergies Type Severity Reaction Last Updated Verified Carbapenems Allergy Intermediate 08/26/16 Yes Cephalosporins Allergy Intermediate 09/20/16 Yes Penicillins Allergy Intermediate 08/26/16 Yes aztreonam Allergy Intermediate 08/26/16 Yes sulfamethoxazole Allergy Intermediate 08/26/16 Yes trimethoprim Allergy Intermediate 08/26/16 Yes Social History RESIDE AT [facility] Vital Signs Vital Signs Date Time Temp Pulse Resp B/P (MAP) Pulse Ox O2 Delivery O2 Flow Rate FiO2 09/21/16 12:00 88 19 95/88 (90) 95 Room Air 09/21/16 12:00 3.0 09/21/16 04:00 98.0 98.0 Last Labs Laboratory Tests Test 09/20/16 18:30 09/20/16 19:45 09/21/16 06:45 09/21/16 07:20 White Blood Count 20.8 x10^3/uL (4.0-11.0) 12.9 x10^3/uL (4.0-11.0) Red Blood Count 3.09 x10^6/uL (4.30-5.70) 2.60 x10^6/uL (4.30-5.70) Hemoglobin 9.4 g/dL (13.0-17.5) 7.9 g/dL (13.0-17.5) Hematocrit 28.1 % (39.0-53.0) 23.6 % (39.0-53.0) Mean Corpuscular Volume 91 fL (79-100) 91 fL (79-100) Mean Corpuscular Hemoglobin 30 pg (25-35) 30 pg (25-35) Mean Corpuscular Hemoglobin Concent 33 g/dL (31-37) 33 g/dL (31-37) Red Cell Distribution Width 14.1 % (11.5-14.5) 13.5 % (11.5-14.5) Platelet Count 248 x10^3/uL (140-400) 184 x10^3/uL (140-400) Neutrophils (%) (Auto) 84 % (31-73) 88 % (31-73) Lymphocytes (%) (Auto) 8 % (24-48) 8 % (24-48) Monocytes (%) (Auto) 7 % (0-9) 4 % (0-9) Eosinophils (%) (Auto) 0 % (0-3) 0 % (0-3) Basophils (%) (Auto) 0 % (0-3) 0 % (0-3) Neutrophils # (Auto) 17.3 x10^3uL (1.8-7.7) 11.3 x10^3uL (1.8-7.7) Lymphocytes # (Auto) 1.7 x10^3/uL (1.0-4.8) 1.0 x10^3/uL (1.0-4.8) Monocytes # (Auto) 1.5 x10^3/uL (0.0-1.1) 0.5 x10^3/uL (0.0-1.1) Eosinophils # (Auto) 0.1 x10^3/uL (0.0-0.7) 0.0 x10^3/uL (0.0-0.7) Basophils # (Auto) 0.1 x10^3/uL (0.0-0.2) 0.0 x10^3/uL (0.0-0.2) Segmented Neutrophils % 89 % (35-66) Lymphocytes % 4 % (24-48) Monocytes % 7 % (0-10) Platelet Estimate Adequate (ADEQUATE) Large Platelets Occ Polychromasia Mod Basophilic Stippling Present Ovalocytes Occ Stomatocytes Occ Crenated Cell Present Sodium Level 138 mmol/L (136-145) 140 mmol/L (136-145) Potassium Level 4.4 mmol/L (3.5-5.1) 4.3 mmol/L (3.5-5.1) Chloride Level 98 mmol/L (98-107) 103 mmol/L (98-107) Carbon Dioxide Level 30 mmol/L (21-32) 25 mmol/L (21-32) Anion Gap 10 (6-14) 12 (6-14) Blood Urea Nitrogen 104 mg/dL (8-26) 95 mg/dL (8-26) Creatinine 7.0 mg/dL (0.7-1.3) 5.0 mg/dL (0.7-1.3) Estimated GFR (Cockcroft-Gault) 7.6 11.2 BUN/Creatinine Ratio 15 (6-20) 19 (6-20) Glucose Level 159 mg/dL (70-99) 221 mg/dL (70-99) Lactic Acid Level 2.0 mmol/L (0.4-2.0) Calcium Level 6.9 mg/dL (8.5-10.1) 7.0 mg/dL (8.5-10.1) Total Bilirubin 0.7 mg/dL (0.2-1.0) 0.4 mg/dL (0.2-1.0) Aspartate Amino Transf (AST/SGOT) 26 U/L (15-37) 30 U/L (15-37) Alanine Aminotransferase (ALT/SGPT) 15 U/L (16-63) 14 U/L (16-63) Alkaline Phosphatase 102 U/L (46-116) 81 U/L (46-116) Total Protein 6.4 g/dL (6.4-8.2) 6.0 g/dL (6.4-8.2) Albumin 1.7 g/dL (3.4-5.0) 2.0 g/dL (3.4-5.0) Albumin/Globulin Ratio 0.4 (1.0-1.7) 0.5 (1.0-1.7) Procalcitonin 0.99 ng/mL (0.00-0.10) Phenytoin (Dilantin) Level 1.8 mcg/mL (10.0-20.0) Phenytoin Last Dose Date 09/20/16 Phenytoin Last Dose Time 0800 O2 Saturation 91 % (92-99) Arterial Blood pH 7.30 (7.35-7.45) Arterial Blood pCO2 at Patient Temp 57 mmHg (35-46) Arterial Blood pO2 at Patient Temp 70 mmHg (65-108) Arterial Blood HCO3 28 mmol/L (21-28) Arterial Blood Base Excess 0 mmol/L (-3-3) FiO2 32 Urine Collection Type Unknown Urine Color Yellow Urine Clarity Cloudy Urine pH 6.5 Urine Specific [place] 1.015 Urine Protein 30 mg/dL (NEG-TRACE) Urine Glucose (UA) Negative mg/dL (NEG) Urine Ketones (Stick) Negative mg/dL (NEG) Urine Blood Small (NEG) Urine Nitrite Negative (NEG) Urine Bilirubin Negative (NEG) Urine Urobilinogen Dipstick 0.2 mg/dL (0.2 mg/dL) Urine Leukocyte Esterase Large (NEG) Urine RBC 0 /HPF (0-2) Urine WBC 11-20 /HPF (0-4) Urine Squamous Epithelial Cells Mod /LPF Urine Bacteria Moderate /HPF (0-FEW) Urine Mucus Mod /LPF Test 09/21/16 12:40 Glucose (Fingerstick) 233 mg/dL (70-99) Exam Comments PT LETHARGIC FOLLOW NO COMMANS CTA NO WHEEZE RRR NO S3 SOFT POOR BS SOME EDEMA NEURO DOES NOT FOLLOW COMMANDS Chest X-rays REVIEWED SOME ATELECTASIS Assessment SEPTIC SHOCK ACUTE RENAL FAILURE ATLECTAISSI ACUTE RESP DISTRESS SEC TO ABOVE SEIZURES TOXIC ENCEPHALOPATHY Plan RESP STATUS IS COMPENSATE PRN BIPAP NO NEED FOR INTUBATION WILL MONITOR FOR NOW SPOKE WITH SISTER AT BEDSIDE THANKS DICK VELAZQUEZ MD Sep 21, 2016 15:09
[2016-09-21] MEDS: MORPHINE SULFATE 4 MG/ML DISP.SYRIN. IV PRN ×2 (15:47→20:59)
[2016-09-22] VITALS (15 sets, daily range): BP systolic 95–138; BP diastolic 31–83
[2016-09-22] MEDS: AMINO AC 3%/ELECTROLYTE/GLYCER 1,000 ML IV SCH ×2 (03:14→15:14)
[2016-09-22] MEDS: FOSPHENYTOIN 100 MG/2 ML VIAL. IV SCH ×3 (05:29→22:52)
[2016-09-22] MEDS: HYDROCORTISONE SOD SUCC/PF 100 MG/2 ML VIAL. IV SCH (05:30)
[2016-09-22 06:07] LABS: BASO % 0 % (0-3); EOS % 0 % (0-3); HEMATOCRIT 38.5 % (39.0-53.0); LYMPH # 0.6 x10^3/uL (1.0-4.8); LYMPH % 11 % (24-48); MEAN CORPUSCULAR HEMOGLOBIN 30 pg (25-35); MEAN CORPUSCULAR HGB CONC 34 g/dL (31-37); MEAN CORPUSCULAR VOLUME 90 fL (79-100); MONO % 6 % (0-9); NEUT % 83 % (31-73); PLATELET COUNT 139 x10^3/uL (140-400); RED BLOOD COUNT 4.28 x10^6/uL (4.30-5.70); RED CELL DISTRIBUTION WIDTH 13.6 % (11.5-14.5)
[2016-09-22 06:26] LABS: CALCIUM 7.4 mg/dL (8.5-10.1); CREATININE 2.9 mg/dL (0.7-1.3); GFR 20.9; POTASSIUM 3.4 mmol/L (3.5-5.1)
[2016-09-22 06:43] LABS: HEMOGLOBIN 12.9 g/dL (13.0-17.5)
[2016-09-22] MEDS: DOCUSATE SODIUM 100 MG CAPSULE. PO SCH ×2 (07:27→20:14)
[2016-09-22] MEDS: CALCIUM CARBONATE 500 MG TAB.CHEW PO SCH ×3 (07:27→20:15)
[2016-09-22] MEDS: INSULN ASP PRT/INSULIN ASPART 300 UNITS/3 ML INSULN.PEN. SQ SCH ×2 (07:30→17:47)
[2016-09-22] MEDS: MEROPENEM 500 MG in IV NORMAL SALINE 50ML 50 ML IV SCH (08:00)
--- NOTE | 2016-09-22 08:42 | PDOC ---
Infectious Disease Note Subjective Subjective Alert but non verbal ROS ROS ROS unobtainable Vital Sign Vital Signs Vital Signs Date Time Temp Pulse Resp B/P (MAP) Pulse Ox O2 Delivery O2 Flow Rate FiO2 09/22/16 07:00 76 17 121/49 (73) 98 Room Air 09/22/16 04:00 98.1 98.1 09/21/16 16:00 3.0 Physical Exam PHYSICAL EXAM GENERAL: NAD, Alert HEENT: PERRL, OC/OP- dry NECK: Supple, no JVD, no LN LUNGS: Clear HEART: S1S2, no gallop, no murmur ABD: Soft, NT, Ostomy, ND Bro EXT: No edema, no cyanosis REGULATORY COMPLIANCE OFFICER: Alert, nonverbal SKIN: No rash IV: ok Labs Lab Laboratory Tests Test 09/21/16 12:40 09/21/16 17:16 09/22/16 05:45 09/22/16 07:44 Glucose (Fingerstick) 233 mg/dL (70-99) 191 mg/dL (70-99) 228 mg/dL (70-99) White Blood Count 5.0 x10^3/uL (4.0-11.0) Red Blood Count 4.28 x10^6/uL (4.30-5.70) Hemoglobin 12.9 g/dL (13.0-17.5) Hematocrit 38.5 % (39.0-53.0) Mean Corpuscular Volume 90 fL (79-100) Mean Corpuscular Hemoglobin 30 pg (25-35) Mean Corpuscular Hemoglobin Concent 34 g/dL (31-37) Red Cell Distribution Width 13.6 % (11.5-14.5) Platelet Count 139 x10^3/uL (140-400) Neutrophils (%) (Auto) 83 % (31-73) Lymphocytes (%) (Auto) 11 % (24-48) Monocytes (%) (Auto) 6 % (0-9) Eosinophils (%) (Auto) 0 % (0-3) Basophils (%) (Auto) 0 % (0-3) Neutrophils # (Auto) 4.1 x10^3uL (1.8-7.7) Lymphocytes # (Auto) 0.6 x10^3/uL (1.0-4.8) Monocytes # (Auto) 0.3 x10^3/uL (0.0-1.1) Eosinophils # (Auto) 0.0 x10^3/uL (0.0-0.7) Basophils # (Auto) 0.0 x10^3/uL (0.0-0.2) Sodium Level 142 mmol/L (136-145) Potassium Level 3.4 mmol/L (3.5-5.1) Chloride Level 105 mmol/L (98-107) Carbon Dioxide Level 26 mmol/L (21-32) Anion Gap 11 (6-14) Blood Urea Nitrogen 79 mg/dL (8-26) Creatinine 2.9 mg/dL (0.7-1.3) Estimated GFR (Cockcroft-Gault) 20.9 Glucose Level 219 mg/dL (70-99) Calcium Level 7.4 mg/dL (8.5-10.1) Objective Assessment Encephalopathy Leukocytosis - better Sepsis - off pressors Levophed -Received Vanc/Rocephin/Levoflox prior to transfer KINZA ? UTI - POA Multiple abx allergies Seizures - on Keppra Plan Plan of Care Cont Zyvox/ Meropenem - has tolerated/Micafungin Labs this am F/u labs and cults DORITA BARNEY MD Sep 22, 2016 08:42
[2016-09-22] MEDS: IPRATRPIUM/ALBUTEROL 0.5/2.5MG 3 ML NEBU. NEB SCH ×4 (08:47→19:27)
[2016-09-22] MEDS: POLYVINYL ALCOHOL 1.4% OPHTH SOLUTION 15ML BOTTLE. OU SCH ×2 (09:00→20:14)
[2016-09-22] MEDS: CAPSAICIN 0.025% TOPICAL CREAM 60GM TUBE. TP SCH ×2 (09:00→20:15)
[2016-09-22] MEDS: FAMOTIDINE 20 MG/2 ML VIAL IVP SCH (09:39)
[2016-09-22] MEDS: HEPARIN PF for SUB-Q USE 5,000 UNIT/0.5 ML VIAL. SQ SCH ×2 (09:40→20:22)
[2016-09-22] MEDS: LEVOTHYROXINE SODIUM IVP SCH (09:41)
[2016-09-22] MEDS: NORMAL SALINE IVP SCH (09:41)
[2016-09-22] MEDS: DOXYCYCLINE HYCLATE 100 MG in IV DEXTROSE 5% 100 ML IV SCH ×2 (09:41→20:12)
[2016-09-22] MEDS ORDERED: MORPHINE SULFATE 4 MG/ML DISP.SYRIN. IV PRN (11:15)
--- NOTE | 2016-09-22 11:17 | PDOC ---
PROGRESS NOTES Chief Complaint Chief Complaint AMS Septic shock ASSESSMENT AND PLAN: 1. Severe Sepsis with shock: weaned off pressors, VS now stable. no blood cultures drawn (?) in the ER 2. UTI: culture is pending; on empiric merrem, doxy, zyvox, micafungin - ID service following; Abx as per ID 3. AMS: difficult to eval, as baseline is demented. per guards, he is at baseline now 4. Leukocytosis: reactive 2/2 infect. resolved (? - see below) 5. KINZA on CKD3: POA, continues to improve. baseline creat 1.1 (per historical chart 6. Anemia: chronic, 2/2 inflammation and CKD. significantly increased H/H today w/o transfusion: suspect lab error - rpt lab 7. Epilepsy: no active issues. on keppra, dilantin 8. Dysphagia: falled swallow study. rpt in a few days. 9. Nutrition: on PPN for now. 10. Hypoalbuminemia: inflammation, ?malnutrition. 11. DM2: levemir; switch meal dose novolog to increased levemir and ISS 12. Prophylaxis: SQ heparin, H2B Vitals Vitals Vital Signs Date Time Temp Pulse Resp B/P (MAP) Pulse Ox O2 Delivery O2 Flow Rate FiO2 09/22/16 10:00 75 18 121/47 (71) 100 Room Air 09/22/16 08:00 98.2 98.2 09/21/16 16:00 3.0 Physical Exam General: Alert, No acute distress, Other (demented, perseveration) Heart: Regular rate Lungs: Clear Abdomen: Normal bowel sounds, Soft, No tenderness Extremities: No clubbing Skin: No rashes Labs LABS Laboratory Tests Test 09/21/16 12:40 09/21/16 17:16 09/22/16 05:45 09/22/16 07:44 Glucose (Fingerstick) 233 mg/dL (70-99) 191 mg/dL (70-99) 228 mg/dL (70-99) White Blood Count 5.0 x10^3/uL (4.0-11.0) Red Blood Count 4.28 x10^6/uL (4.30-5.70) Hemoglobin 12.9 g/dL (13.0-17.5) Hematocrit 38.5 % (39.0-53.0) Mean Corpuscular Volume 90 fL (79-100) Mean Corpuscular Hemoglobin 30 pg (25-35) Mean Corpuscular Hemoglobin Concent 34 g/dL (31-37) Red Cell Distribution Width 13.6 % (11.5-14.5) Platelet Count 139 x10^3/uL (140-400) Neutrophils (%) (Auto) 83 % (31-73) Lymphocytes (%) (Auto) 11 % (24-48) Monocytes (%) (Auto) 6 % (0-9) Eosinophils (%) (Auto) 0 % (0-3) Basophils (%) (Auto) 0 % (0-3) Neutrophils # (Auto) 4.1 x10^3uL (1.8-7.7) Lymphocytes # (Auto) 0.6 x10^3/uL (1.0-4.8) Monocytes # (Auto) 0.3 x10^3/uL (0.0-1.1) Eosinophils # (Auto) 0.0 x10^3/uL (0.0-0.7) Basophils # (Auto) 0.0 x10^3/uL (0.0-0.2) Sodium Level 142 mmol/L (136-145) Potassium Level 3.4 mmol/L (3.5-5.1) Chloride Level 105 mmol/L (98-107) Carbon Dioxide Level 26 mmol/L (21-32) Anion Gap 11 (6-14) Blood Urea Nitrogen 79 mg/dL (8-26) Creatinine 2.9 mg/dL (0.7-1.3) Estimated GFR (Cockcroft-Gault) 20.9 Glucose Level 219 mg/dL (70-99) Calcium Level 7.4 mg/dL (8.5-10.1) AIDA MARISCAL MD Sep 22, 2016 11:17
[2016-09-22] MEDS ORDERED: DEXTROSE 50% 25 GM / 50ML DISP.SYRIN. IV PRN (11:30)
--- NOTE | 2016-09-22 11:34 | PDOC ---
PROGRESS NOTES Assessment Epilepsy NPO status Metabolic encephalopathy Plan Continue current treatment Resume lamotrigine when taking orally Subjective No complaints Objective Vital Signs Date Time Temp Pulse Resp B/P (MAP) Pulse Ox O2 Delivery O2 Flow Rate FiO2 09/22/16 11:00 97.7 76 16 131/56 (81) 95 Room Air 97.7 09/21/16 16:00 3.0 Intake and Output 09/22/16 07:00 Intake Total 4964 ml Output Total 2450 ml Balance 2514 ml Intake Oral 0 ml IV Total 4964 ml Output Urine Total 2450 ml PHYSICAL EXAM Alert. Oriented only to person. PERRL. EOMI. CN: no focal findings. Muscle tone: normal. Muscle strength: Moves all extremities DTR: 1+ Plantar reflex: flexor Gait: not examined in bed. Sensory exam: no abnormal findings. No cerebellar signs elicited. Review of Relevant I have reviewed the following items juliocesar (where applicable) has been applied. Labs Laboratory Tests Test 09/20/16 18:30 09/20/16 19:45 09/20/16 21:00 09/21/16 06:45 White Blood Count 20.8 x10^3/uL (4.0-11.0) 12.9 x10^3/uL (4.0-11.0) Red Blood Count 3.09 x10^6/uL (4.30-5.70) 2.60 x10^6/uL (4.30-5.70) Hemoglobin 9.4 g/dL (13.0-17.5) 7.9 g/dL (13.0-17.5) Hematocrit 28.1 % (39.0-53.0) 23.6 % (39.0-53.0) Mean Corpuscular Volume 91 fL (79-100) 91 fL (79-100) Mean Corpuscular Hemoglobin 30 pg (25-35) 30 pg (25-35) Mean Corpuscular Hemoglobin Concent 33 g/dL (31-37) 33 g/dL (31-37) Red Cell Distribution Width 14.1 % (11.5-14.5) 13.5 % (11.5-14.5) Platelet Count 248 x10^3/uL (140-400) 184 x10^3/uL (140-400) Neutrophils (%) (Auto) 84 % (31-73) 88 % (31-73) Lymphocytes (%) (Auto) 8 % (24-48) 8 % (24-48) Monocytes (%) (Auto) 7 % (0-9) 4 % (0-9) Eosinophils (%) (Auto) 0 % (0-3) 0 % (0-3) Basophils (%) (Auto) 0 % (0-3) 0 % (0-3) Neutrophils # (Auto) 17.3 x10^3uL (1.8-7.7) 11.3 x10^3uL (1.8-7.7) Lymphocytes # (Auto) 1.7 x10^3/uL (1.0-4.8) 1.0 x10^3/uL (1.0-4.8) Monocytes # (Auto) 1.5 x10^3/uL (0.0-1.1) 0.5 x10^3/uL (0.0-1.1) Eosinophils # (Auto) 0.1 x10^3/uL (0.0-0.7) 0.0 x10^3/uL (0.0-0.7) Basophils # (Auto) 0.1 x10^3/uL (0.0-0.2) 0.0 x10^3/uL (0.0-0.2) Segmented Neutrophils % 89 % (35-66) Lymphocytes % 4 % (24-48) Monocytes % 7 % (0-10) Platelet Estimate Adequate (ADEQUATE) Large Platelets Occ Polychromasia Mod Basophilic Stippling Present Ovalocytes Occ Stomatocytes Occ Crenated Cell Present Sodium Level 138 mmol/L (136-145) 140 mmol/L (136-145) Potassium Level 4.4 mmol/L (3.5-5.1) 4.3 mmol/L (3.5-5.1) Chloride Level 98 mmol/L (98-107) 103 mmol/L (98-107) Carbon Dioxide Level 30 mmol/L (21-32) 25 mmol/L (21-32) Anion Gap 10 (6-14) 12 (6-14) Blood Urea Nitrogen 104 mg/dL (8-26) 95 mg/dL (8-26) Creatinine 7.0 mg/dL (0.7-1.3) 5.0 mg/dL (0.7-1.3) Estimated GFR (Cockcroft-Gault) 7.6 11.2 BUN/Creatinine Ratio 15 (6-20) 19 (6-20) Glucose Level 159 mg/dL (70-99) 221 mg/dL (70-99) Lactic Acid Level 2.0 mmol/L (0.4-2.0) Calcium Level 6.9 mg/dL (8.5-10.1) 7.0 mg/dL (8.5-10.1) Total Bilirubin 0.7 mg/dL (0.2-1.0) 0.4 mg/dL (0.2-1.0) Aspartate Amino Transf (AST/SGOT) 26 U/L (15-37) 30 U/L (15-37) Alanine Aminotransferase (ALT/SGPT) 15 U/L (16-63) 14 U/L (16-63) Alkaline Phosphatase 102 U/L (46-116) 81 U/L (46-116) Total Protein 6.4 g/dL (6.4-8.2) 6.0 g/dL (6.4-8.2) Albumin 1.7 g/dL (3.4-5.0) 2.0 g/dL (3.4-5.0) Albumin/Globulin Ratio 0.4 (1.0-1.7) 0.5 (1.0-1.7) Procalcitonin 0.99 ng/mL (0.00-0.10) Phenytoin (Dilantin) Level 1.8 mcg/mL (10.0-20.0) Phenytoin Last Dose Date 09/20/16 Phenytoin Last Dose Time 0800 O2 Saturation 91 % (92-99) Arterial Blood pH 7.30 (7.35-7.45) Arterial Blood pCO2 at Patient Temp 57 mmHg (35-46) Arterial Blood pO2 at Patient Temp 70 mmHg (65-108) Arterial Blood HCO3 28 mmol/L (21-28) Arterial Blood Base Excess 0 mmol/L (-3-3) FiO2 32 Nasal Screen MRSA (PCR) Negative (Negative) Test 09/21/16 07:20 09/21/16 12:40 09/21/16 17:16 6/28/17 05:45 Urine Collection Type Unknown Urine Color Yellow Urine Clarity Cloudy Urine pH 6.5 Urine Specific [place] 1.015 Urine Protein 30 mg/dL (NEG-TRACE) Urine Glucose (UA) Negative mg/dL (NEG) Urine Ketones (Stick) Negative mg/dL (NEG) Urine Blood Small (NEG) Urine Nitrite Negative (NEG) Urine Bilirubin Negative (NEG) Urine Urobilinogen Dipstick 0.2 mg/dL (0.2 mg/dL) Urine Leukocyte Esterase Large (NEG) Urine RBC 0 /HPF (0-2) Urine WBC 11-20 /HPF (0-4) Urine Squamous Epithelial Cells Mod /LPF Urine Bacteria Moderate /HPF (0-FEW) Urine Mucus Mod /LPF Glucose (Fingerstick) 233 mg/dL (70-99) 191 mg/dL (70-99) White Blood Count 5.0 x10^3/uL (4.0-11.0) Red Blood Count 4.28 x10^6/uL (4.30-5.70) Hemoglobin 12.9 g/dL (13.0-17.5) Hematocrit 38.5 % (39.0-53.0) Mean Corpuscular Volume 90 fL (79-100) Mean Corpuscular Hemoglobin 30 pg (25-35) Mean Corpuscular Hemoglobin Concent 34 g/dL (31-37) Red Cell Distribution Width 13.6 % (11.5-14.5) Platelet Count 139 x10^3/uL (140-400) Neutrophils (%) (Auto) 83 % (31-73) Lymphocytes (%) (Auto) 11 % (24-48) Monocytes (%) (Auto) 6 % (0-9) Eosinophils (%) (Auto) 0 % (0-3) Basophils (%) (Auto) 0 % (0-3) Neutrophils # (Auto) 4.1 x10^3uL (1.8-7.7) Lymphocytes # (Auto) 0.6 x10^3/uL (1.0-4.8) Monocytes # (Auto) 0.3 x10^3/uL (0.0-1.1) Eosinophils # (Auto) 0.0 x10^3/uL (0.0-0.7) Basophils # (Auto) 0.0 x10^3/uL (0.0-0.2) Sodium Level 142 mmol/L (136-145) Potassium Level 3.4 mmol/L (3.5-5.1) Chloride Level 105 mmol/L (98-107) Carbon Dioxide Level 26 mmol/L (21-32) Anion Gap 11 (6-14) Blood Urea Nitrogen 79 mg/dL (8-26) Creatinine 2.9 mg/dL (0.7-1.3) Estimated GFR (Cockcroft-Gault) 20.9 Glucose Level 219 mg/dL (70-99) Calcium Level 7.4 mg/dL (8.5-10.1) Test 09/22/16 07:44 09/22/16 11:13 Glucose (Fingerstick) 228 mg/dL (70-99) 247 mg/dL (70-99) Laboratory Tests Test 09/21/16 12:40 09/21/16 17:16 09/22/16 05:45 09/22/16 07:44 Glucose (Fingerstick) 233 mg/dL (70-99) 191 mg/dL (70-99) 228 mg/dL (70-99) White Blood Count 5.0 x10^3/uL (4.0-11.0) Red Blood Count 4.28 x10^6/uL (4.30-5.70) Hemoglobin 12.9 g/dL (13.0-17.5) Hematocrit 38.5 % (39.0-53.0) Mean Corpuscular Volume 90 fL (79-100) Mean Corpuscular Hemoglobin 30 pg (25-35) Mean Corpuscular Hemoglobin Concent 34 g/dL (31-37) Red Cell Distribution Width 13.6 % (11.5-14.5) Platelet Count 139 x10^3/uL (140-400) Neutrophils (%) (Auto) 83 % (31-73) Lymphocytes (%) (Auto) 11 % (24-48) Monocytes (%) (Auto) 6 % (0-9) Eosinophils (%) (Auto) 0 % (0-3) Basophils (%) (Auto) 0 % (0-3) Neutrophils # (Auto) 4.1 x10^3uL (1.8-7.7) Lymphocytes # (Auto) 0.6 x10^3/uL (1.0-4.8) Monocytes # (Auto) 0.3 x10^3/uL (0.0-1.1) Eosinophils # (Auto) 0.0 x10^3/uL (0.0-0.7) Basophils # (Auto) 0.0 x10^3/uL (0.0-0.2) Sodium Level 142 mmol/L (136-145) Potassium Level 3.4 mmol/L (3.5-5.1) Chloride Level 105 mmol/L (98-107) Carbon Dioxide Level 26 mmol/L (21-32) Anion Gap 11 (6-14) Blood Urea Nitrogen 79 mg/dL (8-26) Creatinine 2.9 mg/dL (0.7-1.3) Estimated GFR (Cockcroft-Gault) 20.9 Glucose Level 219 mg/dL (70-99) Calcium Level 7.4 mg/dL (8.5-10.1) Test 09/22/16 11:13 Glucose (Fingerstick) 247 mg/dL (70-99) Medications Current Medications Sodium Chloride 1,000 ml @ 1,000 mls/hr 1X ONCE IV Last administered on 19:49; Start 09/20/16 at 17:15; Stop 09/20/16 at 18:14; Status DC Sodium Chloride 1,000 ml @ 1,000 mls/hr 1X ONCE IV Last administered on 19:51; Start 09/20/16 at 17:15; Stop 09/20/16 at 18:14; Status DC Vancomycin HCl (Vanco Per Pharmacy) 1 each PRN DAILY PRN MC SEE COMMENTS Last administered on 09/20/16 19:32; Start 09/20/16 at 17:15; Stop 09/21/16 at 07:43 ; Status DC Piperacillin Sod/ Tazobactam Sod (Zosyn Per Pharmacy) 1 each PRN DAILY PRN MC SEE COMMENTS; Start 09/20/16 at 17:15; Stop 09/20/16 at 17:15; Status DC Sodium Chloride 1,000 ml @ 100 mls/hr Q10H IV Last administered on 09/21/16 20:58; Start 09/20/16 at 17:15 Hydrocortisone Sodium Succinate (Solu-CORTEF) 100 mg 1X ONCE IV Last administered on 09/20/16 19:50; Start 09/20/16 at 17:15; Stop 09/20/16 at 17:16 ; Status DC Hydrocortisone Sodium Succinate (Solu-CORTEF) 100 mg Q8HRS IV Last administered on 09/22/16 05:30; Start 09/20/16 at 22:00; Stop 09/22/16 at 11:15 ; Status DC Vancomycin HCl 2 gm/Sodium Chloride 500 ml @ 250 mls/hr 1X ONCE IV ; Start at 17:15; Stop 09/20/16 at 19:14; Status Cancel Piperacillin Sod/ Tazobactam Sod 4.5 gm/Sodium Chloride 100 ml @ 200 mls/hr Q6HRS IV ; Start 09/20/16 at 18:00; Stop 09/20/16 at 18:00; Status DC Albuterol/ Ipratropium (Duoneb) 3 ml RTQID NEB Last administered on 09/22/16 08:47; Start 09/20/16 at 17:30 Calcium Carbonate/ Glycine (Tums) 500 mg TID PO ; Start 09/20/16 at 21:00 Docusate Sodium (Colace) 100 mg BID PO ; Start 09/20/16 at 21:00 Lamotrigine (LaMICtal) 100 mg BID PO ; Start 09/20/16 at 21:00; Stop 09/20/16 at 21:00; Status DC Levothyroxine Sodium (Synthroid) 112 mcg DAILY PO ; Start 09/21/16 at 09:00; Stop 09/21/16 at 09:00; Status DC Ondansetron HCl (Zofran Odt) 4 mg PRN Q4HRS PRN PO NAUSEA/VOMITING; Start 09/20 at 17:30 Phenytoin Sodium (Dilantin) 300 mg HS PO ; Start 09/20/16 at 21:00; Stop at 21:00; Status DC Capsaicin (Zostrix) 1 loulou BID TP Last administered on 09/21/16 20:59; Start at 21:00 Artificial Tears (Artificial Tears) 1 drop BID OU Last administered on 20:59; Start 09/20/16 at 21:00 Insulin Aspart Prota 70%/Aspart 30% (Novolog Mix 70-30) 10 units DAILYBFRSUP SQ Last administered on 09/21/16 17:19; Start 09/20/16 at 17:45 Insulin Aspart Prota 70%/Aspart 30% (Novolog Mix 70-30) 22 units DAILYAC SQ ; Start 09/21/16 at 07:30 Famotidine (Pepcid) 20 mg BID PO ; Start 09/20/16 at 21:00; Stop 09/21/16 at 08: 25; Status DC Heparin Sodium (Porcine) (Heparin Sq) 5,000 unit Q12HR SQ Last administered on 09/22/16 09:40; Start 09/20/16 at 21:00 Levetiracetam (Keppra) 500 mg BID PO ; Start 09/20/16 at 21:00; Stop 09/20/16 at 21:00; Status DC Doxycycline Hyclate 100 mg/ Dextrose 100 ml @ 50 mls/hr Q12HR IV Last administered on 09/22/16 09:41; Start 09/20/16 at 21:00 Vancomycin HCl 1 each 1X ONCE MC ; Start 09/22/16 at 16:00; Stop 09/22/16 at 16 :00; Status DC Levetiracetam 500 mg/Sodium Chloride 100 ml @ 400 mls/hr Q12HR IV Last administered on 09/22/16 09:40; Start 09/20/16 at 21:00 Norepinephrine Bitartrate 250 ml @ 0 mls/hr CONT PRN IV SEE I/O RECORD Last administered on 09/21/16 07:27; Start 09/20/16 at 21:45 Morphine Sulfate 4 mg PRN Q2HR PRN IV SEVERE PAIN Last administered on 20:59; Start 09/20/16 at 23:15; Stop 09/22/16 at 11:15; Status DC Albumin Human 500 ml @ 125 mls/hr 1X ONCE IV Last administered on 09/20/16 23:47; Start 09/20/16 at 23:30; Stop 09/21/16 at 03:29; Status DC Linezolid 300 ml @ 300 mls/hr Q12HR IV Last administered on 09/22/16 09:40; Start 09/21/16 at 09:00 Meropenem 500 mg/ Sodium Chloride 50 ml @ 100 mls/hr DAILY@0800 IV Last administered on 09/22/16 08:00; Start 09/21/16 at 08:00 Micafungin Sodium 100 mg/Dextrose 100 ml @ 100 mls/hr Q24H IV Last administered on 09/21/16 10:13; Start 09/21/16 at 10:00 Famotidine (Pepcid) 20 mg DAILY IVP Last administered on 09/22/16 09:39; Start 09/21/16 at 09:00 Levothyroxine Sodium 56 mcg/ Sodium Chloride 5 ml @ 100 mls/hr DAILY IVP Last administered on 09/22/16 09:41; Start 09/21/16 at 09:00 Fosphenytoin Sodium (Cerebyx) 100 mg Q8HRS IV Last administered on 09/22/16 05 :29; Start 09/21/16 at 09:00 Amino Acids/ Glycerin/ Electrolytes 1,000 ml @ 80 mls/hr [id number] IV Last administered on 09/22/16 03:14; Start 09/21/16 at 10:30 Morphine Sulfate 1 mg PRN Q2HR PRN IV SEVERE PAIN; Start 09/22/16 at 11:15 Insulin Aspart (NovoLOG) 0-7 UNITS TIDWMEALS SQ ; Start 09/22/16 at 12:00 Dextrose (Dextrose 50%-Water Syringe) 12.5 gm PRN Q15MIN PRN IV SEE COMMENTS; Start 09/22/16 at 11:30 Active Scripts Active Reported Keppra (Levetiracetam) 500 Mg Tablet 500 Mg PO BID Lamictal (Lamotrigine) 100 Mg Tablet 1 Tab PO BID Lasix (Furosemide) 20 Mg Tablet 1 Tab PO DAILY Humulin 70-30 Vial (Hum Insulin Nph/Reg Insulin Hm) 100 Unit/1 Ml Vial 22 Unit SQ Q AM Synthroid (Levothyroxine Sodium) 112 Mcg Tablet 1 Tab PO DAILY Humulin 70-30 Vial (Hum Insulin Nph/Reg Insulin Hm) 100 Unit/1 Ml Vial 10 Unit SQ DAILYBFRSUP Dilantin (Phenytoin Sodium Extended) 100 Mg Capsule 300 Mg PO HS Vitals/I & O Vital Sign - Last 24 Hours 09/21/16 09/21/16 09/21/16 09/21/16 11:49 12:00 12:00 13:00 Pulse 88 90 Resp 19 22 B/P (MAP) 95/88 (90) 100/48 (65) Pulse Ox 95 94 O2 Delivery Nasal Cannula Nasal Cannula Room Air Room Air O2 Flow Rate 3.0 3.0 09/21/16 09/21/16 09/21/16 09/21/16 13:30 14:00 15:00 15:11 Temp 97.6 97.6 Pulse 86 80 90 Resp 24 26 37 B/P (MAP) 106/42 (63) 84/54 (64) 97/52 (67) Pulse Ox 93 96 92 95 O2 Delivery Room Air Room Air Room Air Room Air 09/21/16 09/21/16 09/21/16 09/21/16 15:47 16:00 16:00 17:00 Pulse 84 78 Resp 16 27 14 B/P (MAP) 97/46 (63) 111/37 (61) Pulse Ox 96 97 O2 Delivery Room Air Room Air Nasal Cannula Room Air O2 Flow Rate 3.0 09/21/16 09/21/16 09/21/16 09/21/16 18:00 19:00 19:52 20:00 Temp 98.0 98.0 Pulse 76 80 Resp 11 17 B/P (MAP) 108/50 (69) 110/48 (68) Pulse Ox 95 95 97 O2 Delivery Room Air Room Air Room Air Room Air 09/21/16 09/21/16 09/21/16 09/21/16 20:00 20:59 21:00 21:30 Temp 98.2 98.2 Pulse 78 98 Resp 20 26 22 16 B/P (MAP) 148/56 (86) 101/47 (65) Pulse Ox 97 96 94 94 O2 Delivery Room Air Room Air Room Air Room Air 09/21/16 09/21/16 09/22/16 09/22/16 22:00 23:00 00:00 00:00 Temp 98.3 98.3 Pulse 78 74 75 Resp 16 15 16 B/P (MAP) 131/49 (76) 154/57 (89) 112/47 (68) Pulse Ox 96 94 97 O2 Delivery Room Air Room Air Room Air Room Air 09/22/16 09/22/16 09/22/16 09/22/16 00:30 01:00 02:00 03:00 Pulse 74 69 73 77 Resp 13 12 15 15 B/P (MAP) 110/46 (67) 107/45 (65) 118/50 (72) 128/55 (79) Pulse Ox 97 97 98 99 O2 Delivery Room Air Room Air Room Air Room Air 09/22/16 09/22/16 09/22/16 09/22/16 04:00 04:00 05:00 06:00 Temp 98.1 98.1 Pulse 103 70 75 Resp 22 14 14 B/P (MAP) 138/52 (80) 101/46 (64) 114/48 (70) Pulse Ox 97 99 98 O2 Delivery Room Air Room Air Room Air Room Air 09/22/16 09/22/16 09/22/16 09/22/16 07:00 08:00 08:00 08:49 Temp 98.2 98.2 Pulse 76 83 Resp 17 20 B/P (MAP) 121/49 (73) 132/83 (99) Pulse Ox 98 100 98 O2 Delivery Room Air Room Air Room Air Room Air 09/22/16 09/22/16 10:00 11:00 Temp 97.7 97.7 Pulse 75 76 Resp 18 16 B/P (MAP) 121/47 (71) 131/56 (81) Pulse Ox 100 95 O2 Delivery Room Air Room Air Intake and Output 09/21/16 09/21/16 09/22/16 15:00 23:00 07:00 Intake Total 655 ml 1988 ml 2321 ml Output Total 950 ml 910 ml 590 ml Balance -295 ml 1078 ml 1731 ml JUAN FERGUSON MD Sep 22, 2016 11:34
--- NOTE | 2016-09-22 12:03 | PDOC ---
Renal-Progress Notes Subjective Notes Notes STILL CONFUSED History of Present Illness Hx of present illness BETTER Vitals Vitals Vital Signs Date Time Temp Pulse Resp B/P (MAP) Pulse Ox O2 Delivery O2 Flow Rate FiO2 09/22/16 11:00 97.7 76 16 131/56 (81) 95 Room Air 97.7 09/21/16 16:00 3.0 Weight Weight [ ] I.O. Intake and Output Intake and Output 09/22/16 06:59 Intake Total 4964 ml Output Total 2350 ml Balance 2614 ml Intake Oral 0 ml IV Total 4964 ml Output Urine Total 2350 ml Labs Labs Laboratory Tests Test 09/21/16 12:40 09/21/16 17:16 09/22/16 05:45 09/22/16 07:44 Glucose (Fingerstick) 233 mg/dL (70-99) 191 mg/dL (70-99) 228 mg/dL (70-99) White Blood Count 5.0 x10^3/uL (4.0-11.0) Red Blood Count 4.28 x10^6/uL (4.30-5.70) Hemoglobin 12.9 g/dL (13.0-17.5) Hematocrit 38.5 % (39.0-53.0) Mean Corpuscular Volume 90 fL (79-100) Mean Corpuscular Hemoglobin 30 pg (25-35) Mean Corpuscular Hemoglobin Concent 34 g/dL (31-37) Red Cell Distribution Width 13.6 % (11.5-14.5) Platelet Count 139 x10^3/uL (140-400) Neutrophils (%) (Auto) 83 % (31-73) Lymphocytes (%) (Auto) 11 % (24-48) Monocytes (%) (Auto) 6 % (0-9) Eosinophils (%) (Auto) 0 % (0-3) Basophils (%) (Auto) 0 % (0-3) Neutrophils # (Auto) 4.1 x10^3uL (1.8-7.7) Lymphocytes # (Auto) 0.6 x10^3/uL (1.0-4.8) Monocytes # (Auto) 0.3 x10^3/uL (0.0-1.1) Eosinophils # (Auto) 0.0 x10^3/uL (0.0-0.7) Basophils # (Auto) 0.0 x10^3/uL (0.0-0.2) Sodium Level 142 mmol/L (136-145) Potassium Level 3.4 mmol/L (3.5-5.1) Chloride Level 105 mmol/L (98-107) Carbon Dioxide Level 26 mmol/L (21-32) Anion Gap 11 (6-14) Blood Urea Nitrogen 79 mg/dL (8-26) Creatinine 2.9 mg/dL (0.7-1.3) Estimated GFR (Cockcroft-Gault) 20.9 Glucose Level 219 mg/dL (70-99) Calcium Level 7.4 mg/dL (8.5-10.1) Test 09/22/16 11:13 Glucose (Fingerstick) 247 mg/dL (70-99) Review of Systems Constitutional: yes: no symptom reported Physical Exam General Appearance: no apparent distress Respiratory: bilateral CTA Heart: S1S2, RRR Abdomen: soft, bowel sounds present Genitourinary: bladder flat Neurology: alert Assessment Assessment IMP KINZA-RESOLVING WITH CR DOWN TO 2.9 HYPOKALEMIA SEPSIS UTI PLAN IVF'S ANTIBIOTICS REPLACE RANDY MAYERS MD Sep 22, 2016 12:02
--- NOTE | 2016-09-22 12:32 | PDOC ---
PULMONARY PROGRESS NOTES Subjective SLEEPY Vitals Vital Signs Date Time Temp Pulse Resp B/P (MAP) Pulse Ox O2 Delivery O2 Flow Rate FiO2 09/22/16 11:00 97.7 76 16 131/56 (81) 95 Room Air 97.7 09/21/16 16:00 3.0 General: No acute distress Lungs: Wheezing (faint) Cardiovascular: S1, S2 Abdomen: Soft, Other Extremities: No Edema Skin: Warm Labs Laboratory Tests Test 09/20/16 18:30 09/20/16 19:45 09/20/16 21:00 09/21/16 06:45 White Blood Count 20.8 x10^3/uL (4.0-11.0) 12.9 x10^3/uL (4.0-11.0) Red Blood Count 3.09 x10^6/uL (4.30-5.70) 2.60 x10^6/uL (4.30-5.70) Hemoglobin 9.4 g/dL (13.0-17.5) 7.9 g/dL (13.0-17.5) Hematocrit 28.1 % (39.0-53.0) 23.6 % (39.0-53.0) Mean Corpuscular Volume 91 fL (79-100) 91 fL (79-100) Mean Corpuscular Hemoglobin 30 pg (25-35) 30 pg (25-35) Mean Corpuscular Hemoglobin Concent 33 g/dL (31-37) 33 g/dL (31-37) Red Cell Distribution Width 14.1 % (11.5-14.5) 13.5 % (11.5-14.5) Platelet Count 248 x10^3/uL (140-400) 184 x10^3/uL (140-400) Neutrophils (%) (Auto) 84 % (31-73) 88 % (31-73) Lymphocytes (%) (Auto) 8 % (24-48) 8 % (24-48) Monocytes (%) (Auto) 7 % (0-9) 4 % (0-9) Eosinophils (%) (Auto) 0 % (0-3) 0 % (0-3) Basophils (%) (Auto) 0 % (0-3) 0 % (0-3) Neutrophils # (Auto) 17.3 x10^3uL (1.8-7.7) 11.3 x10^3uL (1.8-7.7) Lymphocytes # (Auto) 1.7 x10^3/uL (1.0-4.8) 1.0 x10^3/uL (1.0-4.8) Monocytes # (Auto) 1.5 x10^3/uL (0.0-1.1) 0.5 x10^3/uL (0.0-1.1) Eosinophils # (Auto) 0.1 x10^3/uL (0.0-0.7) 0.0 x10^3/uL (0.0-0.7) Basophils # (Auto) 0.1 x10^3/uL (0.0-0.2) 0.0 x10^3/uL (0.0-0.2) Segmented Neutrophils % 89 % (35-66) Lymphocytes % 4 % (24-48) Monocytes % 7 % (0-10) Platelet Estimate Adequate (ADEQUATE) Large Platelets Occ Polychromasia Mod Basophilic Stippling Present Ovalocytes Occ Stomatocytes Occ Crenated Cell Present Sodium Level 138 mmol/L (136-145) 140 mmol/L (136-145) Potassium Level 4.4 mmol/L (3.5-5.1) 4.3 mmol/L (3.5-5.1) Chloride Level 98 mmol/L (98-107) 103 mmol/L (98-107) Carbon Dioxide Level 30 mmol/L (21-32) 25 mmol/L (21-32) Anion Gap 10 (6-14) 12 (6-14) Blood Urea Nitrogen 104 mg/dL (8-26) 95 mg/dL (8-26) Creatinine 7.0 mg/dL (0.7-1.3) 5.0 mg/dL (0.7-1.3) Estimated GFR (Cockcroft-Gault) 7.6 11.2 BUN/Creatinine Ratio 15 (6-20) 19 (6-20) Glucose Level 159 mg/dL (70-99) 221 mg/dL (70-99) Lactic Acid Level 2.0 mmol/L (0.4-2.0) Calcium Level 6.9 mg/dL (8.5-10.1) 7.0 mg/dL (8.5-10.1) Total Bilirubin 0.7 mg/dL (0.2-1.0) 0.4 mg/dL (0.2-1.0) Aspartate Amino Transf (AST/SGOT) 26 U/L (15-37) 30 U/L (15-37) Alanine Aminotransferase (ALT/SGPT) 15 U/L (16-63) 14 U/L (16-63) Alkaline Phosphatase 102 U/L (46-116) 81 U/L (46-116) Total Protein 6.4 g/dL (6.4-8.2) 6.0 g/dL (6.4-8.2) Albumin 1.7 g/dL (3.4-5.0) 2.0 g/dL (3.4-5.0) Albumin/Globulin Ratio 0.4 (1.0-1.7) 0.5 (1.0-1.7) Procalcitonin 0.99 ng/mL (0.00-0.10) Phenytoin (Dilantin) Level 1.8 mcg/mL (10.0-20.0) Phenytoin Last Dose Date 09/20/16 Phenytoin Last Dose Time 0800 O2 Saturation 91 % (92-99) Arterial Blood pH 7.30 (7.35-7.45) Arterial Blood pCO2 at Patient Temp 57 mmHg (35-46) Arterial Blood pO2 at Patient Temp 70 mmHg (65-108) Arterial Blood HCO3 28 mmol/L (21-28) Arterial Blood Base Excess 0 mmol/L (-3-3) FiO2 32 Nasal Screen MRSA (PCR) Negative (Negative) Test 09/21/16 07:20 09/21/16 12:40 09/21/16 17:16 09/22/16 05:45 Urine Collection Type Unknown Urine Color Yellow Urine Clarity Cloudy Urine pH 6.5 Urine Specific [place] 1.015 Urine Protein 30 mg/dL (NEG-TRACE) Urine Glucose (UA) Negative mg/dL (NEG) Urine Ketones (Stick) Negative mg/dL (NEG) Urine Blood Small (NEG) Urine Nitrite Negative (NEG) Urine Bilirubin Negative (NEG) Urine Urobilinogen Dipstick 0.2 mg/dL (0.2 mg/dL) Urine Leukocyte Esterase Large (NEG) Urine RBC 0 /HPF (0-2) Urine WBC 11-20 /HPF (0-4) Urine Squamous Epithelial Cells Mod /LPF Urine Bacteria Moderate /HPF (0-FEW) Urine Mucus Mod /LPF Glucose (Fingerstick) 233 mg/dL (70-99) 191 mg/dL (70-99) White Blood Count 5.0 x10^3/uL (4.0-11.0) Red Blood Count 4.28 x10^6/uL (4.30-5.70) Hemoglobin 12.9 g/dL (13.0-17.5) Hematocrit 38.5 % (39.0-53.0) Mean Corpuscular Volume 90 fL (79-100) Mean Corpuscular Hemoglobin 30 pg (25-35) Mean Corpuscular Hemoglobin Concent 34 g/dL (31-37) Red Cell Distribution Width 13.6 % (11.5-14.5) Platelet Count 139 x10^3/uL (140-400) Neutrophils (%) (Auto) 83 % (31-73) Lymphocytes (%) (Auto) 11 % (24-48) Monocytes (%) (Auto) 6 % (0-9) Eosinophils (%) (Auto) 0 % (0-3) Basophils (%) (Auto) 0 % (0-3) Neutrophils # (Auto) 4.1 x10^3uL (1.8-7.7) Lymphocytes # (Auto) 0.6 x10^3/uL (1.0-4.8) Monocytes # (Auto) 0.3 x10^3/uL (0.0-1.1) Eosinophils # (Auto) 0.0 x10^3/uL (0.0-0.7) Basophils # (Auto) 0.0 x10^3/uL (0.0-0.2) Sodium Level 142 mmol/L (136-145) Potassium Level 3.4 mmol/L (3.5-5.1) Chloride Level 105 mmol/L (98-107) Carbon Dioxide Level 26 mmol/L (21-32) Anion Gap 11 (6-14) Blood Urea Nitrogen 79 mg/dL (8-26) Creatinine 2.9 mg/dL (0.7-1.3) Estimated GFR (Cockcroft-Gault) 20.9 Glucose Level 219 mg/dL (70-99) Calcium Level 7.4 mg/dL (8.5-10.1) Test 09/22/16 07:44 09/22/16 11:13 Glucose (Fingerstick) 228 mg/dL (70-99) 247 mg/dL (70-99) Laboratory Tests Test 09/21/16 12:40 09/21/16 17:16 09/22/16 05:45 09/22/16 07:44 Glucose (Fingerstick) 233 mg/dL (70-99) 191 mg/dL (70-99) 228 mg/dL (70-99) White Blood Count 5.0 x10^3/uL (4.0-11.0) Red Blood Count 4.28 x10^6/uL (4.30-5.70) Hemoglobin 12.9 g/dL (13.0-17.5) Hematocrit 38.5 % (39.0-53.0) Mean Corpuscular Volume 90 fL (79-100) Mean Corpuscular Hemoglobin 30 pg (25-35) Mean Corpuscular Hemoglobin Concent 34 g/dL (31-37) Red Cell Distribution Width 13.6 % (11.5-14.5) Platelet Count 139 x10^3/uL (140-400) Neutrophils (%) (Auto) 83 % (31-73) Lymphocytes (%) (Auto) 11 % (24-48) Monocytes (%) (Auto) 6 % (0-9) Eosinophils (%) (Auto) 0 % (0-3) Basophils (%) (Auto) 0 % (0-3) Neutrophils # (Auto) 4.1 x10^3uL (1.8-7.7) Lymphocytes # (Auto) 0.6 x10^3/uL (1.0-4.8) Monocytes # (Auto) 0.3 x10^3/uL (0.0-1.1) Eosinophils # (Auto) 0.0 x10^3/uL (0.0-0.7) Basophils # (Auto) 0.0 x10^3/uL (0.0-0.2) Sodium Level 142 mmol/L (136-145) Potassium Level 3.4 mmol/L (3.5-5.1) Chloride Level 105 mmol/L (98-107) Carbon Dioxide Level 26 mmol/L (21-32) Anion Gap 11 (6-14) Blood Urea Nitrogen 79 mg/dL (8-26) Creatinine 2.9 mg/dL (0.7-1.3) Estimated GFR (Cockcroft-Gault) 20.9 Glucose Level 219 mg/dL (70-99) Calcium Level 7.4 mg/dL (8.5-10.1) Test 09/22/16 11:13 Glucose (Fingerstick) 247 mg/dL (70-99) Medications Active Scripts Medications Dose Route/Sig Max Daily Dose Days Date Category Keppra (Levetiracetam) 500 Mg Tablet 500 Mg PO BID 09/20/16 Reported Lamictal (Lamotrigine) 100 Mg Tablet 1 Tab PO BID 08/20/16 Reported Lasix (Furosemide) 20 Mg Tablet 1 Tab PO DAILY 08/20/16 Reported Humulin 70-30 Vial (Hum Insulin Nph/Reg Insulin Hm) 100 Unit/1 Ml Vial 22 Unit SQ Q AM 08/20/16 Reported Synthroid (Levothyroxine Sodium) 112 Mcg Tablet 1 Tab PO DAILY 08/20/16 Reported Humulin 70-30 Vial (Hum Insulin Nph/Reg Insulin Hm) 100 Unit/1 Ml Vial 10 Unit SQ [id number] 08/20/16 Reported Dilantin (Phenytoin Sodium Extended) 100 Mg Capsule 300 Mg PO HS 08/20/16 Reported Impression . S/P SEPTIC SHOCK ACUTE RENAL FAILURE ATELECTASIS ACUTE RESP DISTRESS SEC TO ABOVE/ IMPROVED SEIZURES TOXIC ENCEPHALOPATHY Plan . RESP STATUS IS COMPENSATED PRN BIPAP WILL MONITOR FOR NOW NEBS ANTIBIOTIC PER ID F/U ROBIN CASTRO MD Sep 22, 2016 12:32
[2016-09-22] MEDS: INSULIN ASPART 300 UNITS/3 ML INSULN.PEN SQ SCH ×2 (13:28→17:47)
[2016-09-22] MEDS: IV NORMAL SALINE 1000ML BAG 1,000 ML IV SCH (13:50)
[2016-09-22 14:36] LABS: FIO2 ABG 21; HCO3 ABG 21 mmol/L (21-28); PCO2 ABG 29 mmHg (35-46); PH ABG 7.48 (7.35-7.45); PO2 ABG 67 mmHg (65-108); SAT O2 ABG 93 % (92-99)
[2016-09-22] MEDS: MICAFUNGIN 100 MG in IV DEXTROSE 5% 100 ML IV SCH (15:16)
[2016-09-22] MEDS ORDERED: VANCOMYCIN RANDOM LEVEL. MC ONE (16:00)
[2016-09-23 03:00] VITALS: BP 95/27
[2016-09-23] MEDS: AMINO AC 3%/ELECTROLYTE/GLYCER 1,000 ML IV SCH ×3 (03:06→18:04)
[2016-09-23] MEDS: IV NORMAL SALINE 1000ML BAG 1,000 ML IV SCH ×3 (03:06→17:43)
[2016-09-23] MEDS: FOSPHENYTOIN 100 MG/2 ML VIAL. IV SCH ×3 (06:32→21:23)
[2016-09-23 07:00] VITALS: BP 96/42
[2016-09-23] MEDS: IPRATRPIUM/ALBUTEROL 0.5/2.5MG 3 ML NEBU. NEB SCH ×4 (07:17→19:25)
[2016-09-23 07:27] LABS: BASO % 0 % (0-3); EOS % 0 % (0-3); HEMATOCRIT 24.3 % (39.0-53.0); HEMOGLOBIN 8.3 g/dL (13.0-17.5); LYMPH # 1.9 x10^3/uL (1.0-4.8); LYMPH % 22 % (24-48); MEAN CORPUSCULAR HEMOGLOBIN 31 pg (25-35); MEAN CORPUSCULAR HGB CONC 34 g/dL (31-37); MEAN CORPUSCULAR VOLUME 90 fL (79-100); MONO % 7 % (0-9); NEUT % 70 % (31-73); PLATELET COUNT 206 x10^3/uL (140-400); RED BLOOD COUNT 2.71 x10^6/uL (4.30-5.70); RED CELL DISTRIBUTION WIDTH 13.5 % (11.5-14.5); WHITE BLOOD COUNT 8.4 x10^3/uL (4.0-11.0)
[2016-09-23 07:47] LABS: ALBUMIN 1.7 g/dL (3.4-5.0); ALBUMIN/GLOBULIN RATIO 0.5 (1.0-1.7); CALCIUM 7.3 mg/dL (8.5-10.1); CREATININE 1.7 mg/dL (0.7-1.3); GFR 38.8; TOTAL BILIRUBIN 0.3 mg/dL (0.2-1.0); TOTAL PROTEIN 4.9 g/dL (6.4-8.2)
[2016-09-23 07:49] LABS: POTASSIUM 2.8 mmol/L (3.5-5.1)
[2016-09-23] MEDS: INSULIN ASPART 300 UNITS/3 ML INSULN.PEN SQ SCH ×3 (08:00→17:00)
[2016-09-23] MEDS: DOCUSATE SODIUM 100 MG CAPSULE. PO SCH ×2 (09:00→21:00)
[2016-09-23] MEDS: CALCIUM CARBONATE 500 MG TAB.CHEW PO SCH ×3 (09:00→21:23)
[2016-09-23] MEDS: CAPSAICIN 0.025% TOPICAL CREAM 60GM TUBE. TP SCH ×2 (09:00→21:23)
[2016-09-23] MEDS: POLYVINYL ALCOHOL 1.4% OPHTH SOLUTION 15ML BOTTLE. OU SCH ×2 (09:00→21:24)
[2016-09-23] MEDS: MEROPENEM 500 MG in IV NORMAL SALINE 50ML 50 ML IV SCH ×3 (09:05→21:26)
[2016-09-23] MEDS: FAMOTIDINE 20 MG/2 ML VIAL IVP SCH (09:05)
[2016-09-23] MEDS: INSULN ASP PRT/INSULIN ASPART 300 UNITS/3 ML INSULN.PEN. SQ SCH (09:20)
[2016-09-23] MEDS: HEPARIN PF for SUB-Q USE 5,000 UNIT/0.5 ML VIAL. SQ SCH ×2 (09:21→21:48)
[2016-09-23] MEDS: DOXYCYCLINE HYCLATE 100 MG in IV DEXTROSE 5% 100 ML IV SCH ×2 (09:27→21:24)
[2016-09-23] MEDS: NORMAL SALINE IVP SCH (09:28)
[2016-09-23] MEDS: LEVOTHYROXINE SODIUM IVP SCH (09:28)
--- NOTE | 2016-09-23 10:18 | PDOC ---
Infectious Disease Note Subjective Subjective Alert but severely confused ROS ROS unobtainable Vital Sign Vital Signs Vital Signs Date Time Temp Pulse Resp B/P (MAP) Pulse Ox O2 Delivery O2 Flow Rate FiO2 09/23/16 07:18 95 Room Air 09/23/16 07:00 98.1 80 18 96/42 (60) 98.1 09/22/16 20:00 3.0 Physical Exam PHYSICAL EXAM GENERAL: NAD, Alert, aggitated HEENT: PERRL, OC/OP- dry NECK: Supple, no JVD, no LN LUNGS: Clear HEART: S1S2, no gallop, no murmur ABD: Soft, NT, Ostomy, ND Bro EXT: No edema, no cyanosis VICE PRESIDENT PAYMENT: Alert, aggitated SKIN: No rash IV: ok Labs Lab Laboratory Tests Test 09/22/16 11:13 09/22/16 13:21 09/22/16 16:50 09/22/16 21:08 Glucose (Fingerstick) 247 mg/dL (70-99) 198 mg/dL (70-99) 91 mg/dL (70-99) O2 Saturation 93 % (92-99) Arterial Blood pH 7.48 (7.35-7.45) Arterial Blood pCO2 at Patient Temp 29 mmHg (35-46) Arterial Blood pO2 at Patient Temp 67 mmHg (65-108) Arterial Blood HCO3 21 mmol/L (21-28) Arterial Blood Base Excess -2 mmol/L (-3-3) FiO2 21 Test 09/23/16 07:00 09/23/16 07:48 White Blood Count 8.4 x10^3/uL (4.0-11.0) Red Blood Count 2.71 x10^6/uL (4.30-5.70) Hemoglobin 8.3 g/dL (13.0-17.5) Hematocrit 24.3 % (39.0-53.0) Mean Corpuscular Volume 90 fL (79-100) Mean Corpuscular Hemoglobin 31 pg (25-35) Mean Corpuscular Hemoglobin Concent 34 g/dL (31-37) Red Cell Distribution Width 13.5 % (11.5-14.5) Platelet Count 206 x10^3/uL (140-400) Neutrophils (%) (Auto) 70 % (31-73) Lymphocytes (%) (Auto) 22 % (24-48) Monocytes (%) (Auto) 7 % (0-9) Eosinophils (%) (Auto) 0 % (0-3) Basophils (%) (Auto) 0 % (0-3) Neutrophils # (Auto) 5.9 x10^3uL (1.8-7.7) Lymphocytes # (Auto) 1.9 x10^3/uL (1.0-4.8) Monocytes # (Auto) 0.6 x10^3/uL (0.0-1.1) Eosinophils # (Auto) 0.0 x10^3/uL (0.0-0.7) Basophils # (Auto) 0.0 x10^3/uL (0.0-0.2) Sodium Level 143 mmol/L (136-145) Potassium Level 2.8 mmol/L (3.5-5.1) Chloride Level 108 mmol/L (98-107) Carbon Dioxide Level 26 mmol/L (21-32) Anion Gap 9 (6-14) Blood Urea Nitrogen 63 mg/dL (8-26) Creatinine 1.7 mg/dL (0.7-1.3) Estimated GFR (Cockcroft-Gault) 38.8 BUN/Creatinine Ratio 37 (6-20) Glucose Level 108 mg/dL (70-99) Calcium Level 7.3 mg/dL (8.5-10.1) Total Bilirubin 0.3 mg/dL (0.2-1.0) Aspartate Amino Transf (AST/SGOT) 24 U/L (15-37) Alanine Aminotransferase (ALT/SGPT) 14 U/L (16-63) Alkaline Phosphatase 72 U/L (46-116) Total Protein 4.9 g/dL (6.4-8.2) Albumin 1.7 g/dL (3.4-5.0) Albumin/Globulin Ratio 0.5 (1.0-1.7) Glucose (Fingerstick) 128 mg/dL (70-99) Objective Assessment Encephalopathy - resolving Leukocytosis - better Sepsis - off pressors Levophed -Received Vanc/Rocephin/Levoflox prior to transfer KINZA - better ? UTI - POA Multiple abx allergies Seizures - on Keppra Plan Plan of Care Dcont Zyvox/Micafungin Cont Doxy/Meropenem - but adjust dose. has tolerated F/u labs and cults DORITA BARNEY MD Sep 23, 2016 10:18
[2016-09-23 11:00] VITALS: BP 125/56
--- NOTE | 2016-09-23 11:24 | PDOC ---
PULMONARY PROGRESS NOTES Subjective awake, but confused Vitals Vital Signs Date Time Temp Pulse Resp B/P (MAP) Pulse Ox O2 Delivery O2 Flow Rate FiO2 09/23/16 11:02 95 Room Air 09/23/16 07:00 98.1 80 18 96/42 (60) 98.1 09/22/16 20:00 3.0 General: No acute distress Lungs: Wheezing (resolved) Cardiovascular: S1, S2 Abdomen: Soft, Other Neuro Exam: Alert Extremities: No Edema Skin: Warm Labs Laboratory Tests Test 09/21/16 12:40 09/21/16 17:16 09/22/16 05:45 09/22/16 07:44 Glucose (Fingerstick) 233 mg/dL (70-99) 191 mg/dL (70-99) 228 mg/dL (70-99) White Blood Count 5.0 x10^3/uL (4.0-11.0) Red Blood Count 4.28 x10^6/uL (4.30-5.70) Hemoglobin 12.9 g/dL (13.0-17.5) Hematocrit 38.5 % (39.0-53.0) Mean Corpuscular Volume 90 fL (79-100) Mean Corpuscular Hemoglobin 30 pg (25-35) Mean Corpuscular Hemoglobin Concent 34 g/dL (31-37) Red Cell Distribution Width 13.6 % (11.5-14.5) Platelet Count 139 x10^3/uL (140-400) Neutrophils (%) (Auto) 83 % (31-73) Lymphocytes (%) (Auto) 11 % (24-48) Monocytes (%) (Auto) 6 % (0-9) Eosinophils (%) (Auto) 0 % (0-3) Basophils (%) (Auto) 0 % (0-3) Neutrophils # (Auto) 4.1 x10^3uL (1.8-7.7) Lymphocytes # (Auto) 0.6 x10^3/uL (1.0-4.8) Monocytes # (Auto) 0.3 x10^3/uL (0.0-1.1) Eosinophils # (Auto) 0.0 x10^3/uL (0.0-0.7) Basophils # (Auto) 0.0 x10^3/uL (0.0-0.2) Sodium Level 142 mmol/L (136-145) Potassium Level 3.4 mmol/L (3.5-5.1) Chloride Level 105 mmol/L (98-107) Carbon Dioxide Level 26 mmol/L (21-32) Anion Gap 11 (6-14) Blood Urea Nitrogen 79 mg/dL (8-26) Creatinine 2.9 mg/dL (0.7-1.3) Estimated GFR (Cockcroft-Gault) 20.9 Glucose Level 219 mg/dL (70-99) Calcium Level 7.4 mg/dL (8.5-10.1) Test 09/22/16 11:13 09/22/16 13:21 09/22/16 16:50 09/22/16 21:08 Glucose (Fingerstick) 247 mg/dL (70-99) 198 mg/dL (70-99) 91 mg/dL (70-99) O2 Saturation 93 % (92-99) Arterial Blood pH 7.48 (7.35-7.45) Arterial Blood pCO2 at Patient Temp 29 mmHg (35-46) Arterial Blood pO2 at Patient Temp 67 mmHg (65-108) Arterial Blood HCO3 21 mmol/L (21-28) Arterial Blood Base Excess -2 mmol/L (-3-3) FiO2 21 Test 09/23/16 07:00 09/23/16 07:48 White Blood Count 8.4 x10^3/uL (4.0-11.0) Red Blood Count 2.71 x10^6/uL (4.30-5.70) Hemoglobin 8.3 g/dL (13.0-17.5) Hematocrit 24.3 % (39.0-53.0) Mean Corpuscular Volume 90 fL (79-100) Mean Corpuscular Hemoglobin 31 pg (25-35) Mean Corpuscular Hemoglobin Concent 34 g/dL (31-37) Red Cell Distribution Width 13.5 % (11.5-14.5) Platelet Count 206 x10^3/uL (140-400) Neutrophils (%) (Auto) 70 % (31-73) Lymphocytes (%) (Auto) 22 % (24-48) Monocytes (%) (Auto) 7 % (0-9) Eosinophils (%) (Auto) 0 % (0-3) Basophils (%) (Auto) 0 % (0-3) Neutrophils # (Auto) 5.9 x10^3uL (1.8-7.7) Lymphocytes # (Auto) 1.9 x10^3/uL (1.0-4.8) Monocytes # (Auto) 0.6 x10^3/uL (0.0-1.1) Eosinophils # (Auto) 0.0 x10^3/uL (0.0-0.7) Basophils # (Auto) 0.0 x10^3/uL (0.0-0.2) Sodium Level 143 mmol/L (136-145) Potassium Level 2.8 mmol/L (3.5-5.1) Chloride Level 108 mmol/L (98-107) Carbon Dioxide Level 26 mmol/L (21-32) Anion Gap 9 (6-14) Blood Urea Nitrogen 63 mg/dL (8-26) Creatinine 1.7 mg/dL (0.7-1.3) Estimated GFR (Cockcroft-Gault) 38.8 BUN/Creatinine Ratio 37 (6-20) Glucose Level 108 mg/dL (70-99) Calcium Level 7.3 mg/dL (8.5-10.1) Total Bilirubin 0.3 mg/dL (0.2-1.0) Aspartate Amino Transf (AST/SGOT) 24 U/L (15-37) Alanine Aminotransferase (ALT/SGPT) 14 U/L (16-63) Alkaline Phosphatase 72 U/L (46-116) Total Protein 4.9 g/dL (6.4-8.2) Albumin 1.7 g/dL (3.4-5.0) Albumin/Globulin Ratio 0.5 (1.0-1.7) Glucose (Fingerstick) 128 mg/dL (70-99) Laboratory Tests Test 09/22/16 13:21 09/22/16 16:50 09/22/16 21:08 09/23/16 07:00 O2 Saturation 93 % (92-99) Arterial Blood pH 7.48 (7.35-7.45) Arterial Blood pCO2 at Patient Temp 29 mmHg (35-46) Arterial Blood pO2 at Patient Temp 67 mmHg (65-108) Arterial Blood HCO3 21 mmol/L (21-28) Arterial Blood Base Excess -2 mmol/L (-3-3) FiO2 21 Glucose (Fingerstick) 198 mg/dL (70-99) 91 mg/dL (70-99) White Blood Count 8.4 x10^3/uL (4.0-11.0) Red Blood Count 2.71 x10^6/uL (4.30-5.70) Hemoglobin 8.3 g/dL (13.0-17.5) Hematocrit 24.3 % (39.0-53.0) Mean Corpuscular Volume 90 fL (79-100) Mean Corpuscular Hemoglobin 31 pg (25-35) Mean Corpuscular Hemoglobin Concent 34 g/dL (31-37) Red Cell Distribution Width 13.5 % (11.5-14.5) Platelet Count 206 x10^3/uL (140-400) Neutrophils (%) (Auto) 70 % (31-73) Lymphocytes (%) (Auto) 22 % (24-48) Monocytes (%) (Auto) 7 % (0-9) Eosinophils (%) (Auto) 0 % (0-3) Basophils (%) (Auto) 0 % (0-3) Neutrophils # (Auto) 5.9 x10^3uL (1.8-7.7) Lymphocytes # (Auto) 1.9 x10^3/uL (1.0-4.8) Monocytes # (Auto) 0.6 x10^3/uL (0.0-1.1) Eosinophils # (Auto) 0.0 x10^3/uL (0.0-0.7) Basophils # (Auto) 0.0 x10^3/uL (0.0-0.2) Sodium Level 143 mmol/L (136-145) Potassium Level 2.8 mmol/L (3.5-5.1) Chloride Level 108 mmol/L (98-107) Carbon Dioxide Level 26 mmol/L (21-32) Anion Gap 9 (6-14) Blood Urea Nitrogen 63 mg/dL (8-26) Creatinine 1.7 mg/dL (0.7-1.3) Estimated GFR (Cockcroft-Gault) 38.8 BUN/Creatinine Ratio 37 (6-20) Glucose Level 108 mg/dL (70-99) Calcium Level 7.3 mg/dL (8.5-10.1) Total Bilirubin 0.3 mg/dL (0.2-1.0) Aspartate Amino Transf (AST/SGOT) 24 U/L (15-37) Alanine Aminotransferase (ALT/SGPT) 14 U/L (16-63) Alkaline Phosphatase 72 U/L (46-116) Total Protein 4.9 g/dL (6.4-8.2) Albumin 1.7 g/dL (3.4-5.0) Albumin/Globulin Ratio 0.5 (1.0-1.7) Test 09/23/16 07:48 Glucose (Fingerstick) 128 mg/dL (70-99) Medications Active Scripts Medications Dose Route/Sig Max Daily Dose Days Date Category Keppra (Levetiracetam) 500 Mg Tablet 500 Mg PO BID 09/20/16 Reported Lamictal (Lamotrigine) 100 Mg Tablet 1 Tab PO BID 08/20/16 Reported Lasix (Furosemide) 20 Mg Tablet 1 Tab PO DAILY 08/20/16 Reported Humulin 70-30 Vial (Hum Insulin Nph/Reg Insulin Hm) 100 Unit/1 Ml Vial 22 Unit SQ Q AM 08/20/16 Reported Synthroid (Levothyroxine Sodium) 112 Mcg Tablet 1 Tab PO DAILY 08/20/16 Reported Humulin 70-30 Vial (Hum Insulin Nph/Reg Insulin Hm) 100 Unit/1 Ml Vial 10 Unit SQ DAILYBFRSUP 08/20/16 Reported Dilantin (Phenytoin Sodium Extended) 100 Mg Capsule 300 Mg PO HS 08/20/16 Reported Impression . S/P SEPTIC SHOCK ACUTE RENAL FAILURE ATELECTASIS ACUTE RESP DISTRESS SEC TO ABOVE/ IMPROVED SEIZURES TOXIC ENCEPHALOPATHY Plan . RESP STATUS IS COMPENSATED PRN BIPAP WILL MONITOR FOR NOW NEBS ANTIBIOTIC PER ID F/U ABG WITH RESOLVED HYPERCAPNIA WILL SEE PRN ROBIN LYNN MD Sep 23, 2016 11:24
[2016-09-23] MEDS: POTASSIUM CHLORIDE 20MEQ 50 ML IV SCH ×4 (11:57→17:43)
--- NOTE | 2016-09-23 12:59 | PDOC ---
Renal-Progress Notes Subjective Notes Notes NO NEW COMPLAINTS History of Present Illness Hx of present illness NO CHANGE Vitals Vitals Vital Signs Date Time Temp Pulse Resp B/P (MAP) Pulse Ox O2 Delivery O2 Flow Rate FiO2 09/23/16 11:02 95 Room Air 09/23/16 11:00 98.5 105 20 125/56 (79) 98.5 09/22/16 20:00 3.0 Weight Weight [ ] I.O. Intake and Output Intake and Output 09/23/16 07:00 Intake Total 1400 ml Output Total 1225 ml Balance 175 ml Intake Oral 0 ml Other 1400 ml Output Urine Total 1075 ml Stool Total 150 ml Labs Labs Laboratory Tests Test 09/22/16 13:21 09/22/16 16:50 09/22/16 21:08 09/23/16 07:00 O2 Saturation 93 % (92-99) Arterial Blood pH 7.48 (7.35-7.45) Arterial Blood pCO2 at Patient Temp 29 mmHg (35-46) Arterial Blood pO2 at Patient Temp 67 mmHg (65-108) Arterial Blood HCO3 21 mmol/L (21-28) Arterial Blood Base Excess -2 mmol/L (-3-3) FiO2 21 Glucose (Fingerstick) 198 mg/dL (70-99) 91 mg/dL (70-99) White Blood Count 8.4 x10^3/uL (4.0-11.0) Red Blood Count 2.71 x10^6/uL (4.30-5.70) Hemoglobin 8.3 g/dL (13.0-17.5) Hematocrit 24.3 % (39.0-53.0) Mean Corpuscular Volume 90 fL (79-100) Mean Corpuscular Hemoglobin 31 pg (25-35) Mean Corpuscular Hemoglobin Concent 34 g/dL (31-37) Red Cell Distribution Width 13.5 % (11.5-14.5) Platelet Count 206 x10^3/uL (140-400) Neutrophils (%) (Auto) 70 % (31-73) Lymphocytes (%) (Auto) 22 % (24-48) Monocytes (%) (Auto) 7 % (0-9) Eosinophils (%) (Auto) 0 % (0-3) Basophils (%) (Auto) 0 % (0-3) Neutrophils # (Auto) 5.9 x10^3uL (1.8-7.7) Lymphocytes # (Auto) 1.9 x10^3/uL (1.0-4.8) Monocytes # (Auto) 0.6 x10^3/uL (0.0-1.1) Eosinophils # (Auto) 0.0 x10^3/uL (0.0-0.7) Basophils # (Auto) 0.0 x10^3/uL (0.0-0.2) Sodium Level 143 mmol/L (136-145) Potassium Level 2.8 mmol/L (3.5-5.1) Chloride Level 108 mmol/L (98-107) Carbon Dioxide Level 26 mmol/L (21-32) Anion Gap 9 (6-14) Blood Urea Nitrogen 63 mg/dL (8-26) Creatinine 1.7 mg/dL (0.7-1.3) Estimated GFR (Cockcroft-Gault) 38.8 BUN/Creatinine Ratio 37 (6-20) Glucose Level 108 mg/dL (70-99) Calcium Level 7.3 mg/dL (8.5-10.1) Total Bilirubin 0.3 mg/dL (0.2-1.0) Aspartate Amino Transf (AST/SGOT) 24 U/L (15-37) Alanine Aminotransferase (ALT/SGPT) 14 U/L (16-63) Alkaline Phosphatase 72 U/L (46-116) Total Protein 4.9 g/dL (6.4-8.2) Albumin 1.7 g/dL (3.4-5.0) Albumin/Globulin Ratio 0.5 (1.0-1.7) Test 09/23/16 07:48 09/23/16 11:44 Glucose (Fingerstick) 128 mg/dL (70-99) 99 mg/dL (70-99) Micro Micro Microbiology 09/21/16 Urine Culture - Preliminary, Resulted 09/21/16 Urine Culture Result 1 (NORBERTO) - Preliminary, Resulted Review of Systems Constitutional: yes: no symptom reported Physical Exam General Appearance: no apparent distress Respiratory: bilateral CTA Heart: S1S2, RRR Abdomen: soft, bowel sounds present Genitourinary: bladder flat Neurology: alert Assessment Assessment IMP KINZA-RESOLVING WITH CR DOWN TO 1.7 HYPOKALEMIA SEPSIS UTI PLAN PPN STOP IVF'S ANTIBIOTICS REPLACE RANDY MAYERS MD Sep 23, 2016 12:59
--- NOTE | 2016-09-23 13:40 | PDOC ---
PROGRESS NOTES Chief Complaint Chief Complaint AMS Septic shock ASSESSMENT AND PLAN: 1. Severe Sepsis with shock: weaned off pressors, VS now stable. no blood cultures drawn (?) in the ER 2. UTI possible: culture neg; on empiric merrem, doxy, dced zyvox, micafungin - ID service following; Abx as per ID 3. AMS with baseline dementia: difficult to eval, as baseline is demented. per guards, he is at baseline now 4. Leukocytosis: reactive 2/2 infect. resolved (? - see below) 5. KINZA on CKD3: POA, continues to improve. baseline creat 1.1 (per historical chart 6. Anemia: chronic, 2/2 inflammation and CKD. significantly increased H/H today w/o transfusion: suspect lab error - rpt lab 7. Epilepsy: no active issues. on keppra, dilantin 8. Dysphagia: falled swallow study. rpt in a few days. 9. Nutrition: on PPN for now. 10. Hypoalbuminemia: inflammation, ?malnutrition. 11. DM2: levemir; switch meal dose novolog to increased levemir and ISS 12. Prophylaxis: SQ heparin, H2B failed swallow on PPN now, talked to spring encaser, will add NGT now, then dc to [facility] with NGT feeding and iv abx replete K PAT consulted, pt's sister TRINA cannot be reached, should be DNR. History of Present Illness History of Present Illness very confused, but as per correction guards, this is his baseline, aaox1-2, sometimes language abuse was in [facility] before, no details should be DNR, but DPOA sister cannot be reached npo, failed swallow , on ppn low K Vitals Vitals Vital Signs Date Time Temp Pulse Resp B/P (MAP) Pulse Ox O2 Delivery O2 Flow Rate FiO2 09/23/16 11:02 95 Room Air 09/23/16 11:00 98.5 105 20 125/56 (79) 98.5 09/22/16 20:00 3.0 Physical Exam General: Alert, No acute distress, Other (demented, perseveration) Heart: Regular rate Lungs: Wheezing (resolved) Abdomen: Normal bowel sounds, Soft, No tenderness Extremities: No clubbing Skin: No rashes Labs LABS Laboratory Tests Test 09/22/16 16:50 09/22/16 21:08 09/23/16 07:00 09/23/16 07:48 Glucose (Fingerstick) 198 mg/dL (70-99) 91 mg/dL (70-99) 128 mg/dL (70-99) White Blood Count 8.4 x10^3/uL (4.0-11.0) Red Blood Count 2.71 x10^6/uL (4.30-5.70) Hemoglobin 8.3 g/dL (13.0-17.5) Hematocrit 24.3 % (39.0-53.0) Mean Corpuscular Volume 90 fL (79-100) Mean Corpuscular Hemoglobin 31 pg (25-35) Mean Corpuscular Hemoglobin Concent 34 g/dL (31-37) Red Cell Distribution Width 13.5 % (11.5-14.5) Platelet Count 206 x10^3/uL (140-400) Neutrophils (%) (Auto) 70 % (31-73) Lymphocytes (%) (Auto) 22 % (24-48) Monocytes (%) (Auto) 7 % (0-9) Eosinophils (%) (Auto) 0 % (0-3) Basophils (%) (Auto) 0 % (0-3) Neutrophils # (Auto) 5.9 x10^3uL (1.8-7.7) Lymphocytes # (Auto) 1.9 x10^3/uL (1.0-4.8) Monocytes # (Auto) 0.6 x10^3/uL (0.0-1.1) Eosinophils # (Auto) 0.0 x10^3/uL (0.0-0.7) Basophils # (Auto) 0.0 x10^3/uL (0.0-0.2) Sodium Level 143 mmol/L (136-145) Potassium Level 2.8 mmol/L (3.5-5.1) Chloride Level 108 mmol/L (98-107) Carbon Dioxide Level 26 mmol/L (21-32) Anion Gap 9 (6-14) Blood Urea Nitrogen 63 mg/dL (8-26) Creatinine 1.7 mg/dL (0.7-1.3) Estimated GFR (Cockcroft-Gault) 38.8 BUN/Creatinine Ratio 37 (6-20) Glucose Level 108 mg/dL (70-99) Calcium Level 7.3 mg/dL (8.5-10.1) Total Bilirubin 0.3 mg/dL (0.2-1.0) Aspartate Amino Transf (AST/SGOT) 24 U/L (15-37) Alanine Aminotransferase (ALT/SGPT) 14 U/L (16-63) Alkaline Phosphatase 72 U/L (46-116) Total Protein 4.9 g/dL (6.4-8.2) Albumin 1.7 g/dL (3.4-5.0) Albumin/Globulin Ratio 0.5 (1.0-1.7) Test 09/23/16 11:44 Glucose (Fingerstick) 99 mg/dL (70-99) Review of Systems Review of Systems no fever, chills, sob or chest pain Comment Review of Relevant I have reviewed the following items juliocesar (where applicable) has been applied. Labs Laboratory Tests Test 09/21/16 17:16 09/22/16 05:45 09/22/16 07:44 09/22/16 11:13 Glucose (Fingerstick) 191 mg/dL (70-99) 228 mg/dL (70-99) 247 mg/dL (70-99) White Blood Count 5.0 x10^3/uL (4.0-11.0) Red Blood Count 4.28 x10^6/uL (4.30-5.70) Hemoglobin 12.9 g/dL (13.0-17.5) Hematocrit 38.5 % (39.0-53.0) Mean Corpuscular Volume 90 fL (79-100) Mean Corpuscular Hemoglobin 30 pg (25-35) Mean Corpuscular Hemoglobin Concent 34 g/dL (31-37) Red Cell Distribution Width 13.6 % (11.5-14.5) Platelet Count 139 x10^3/uL (140-400) Neutrophils (%) (Auto) 83 % (31-73) Lymphocytes (%) (Auto) 11 % (24-48) Monocytes (%) (Auto) 6 % (0-9) Eosinophils (%) (Auto) 0 % (0-3) Basophils (%) (Auto) 0 % (0-3) Neutrophils # (Auto) 4.1 x10^3uL (1.8-7.7) Lymphocytes # (Auto) 0.6 x10^3/uL (1.0-4.8) Monocytes # (Auto) 0.3 x10^3/uL (0.0-1.1) Eosinophils # (Auto) 0.0 x10^3/uL (0.0-0.7) Basophils # (Auto) 0.0 x10^3/uL (0.0-0.2) Sodium Level 142 mmol/L (136-145) Potassium Level 3.4 mmol/L (3.5-5.1) Chloride Level 105 mmol/L (98-107) Carbon Dioxide Level 26 mmol/L (21-32) Anion Gap 11 (6-14) Blood Urea Nitrogen 79 mg/dL (8-26) Creatinine 2.9 mg/dL (0.7-1.3) Estimated GFR (Cockcroft-Gault) 20.9 Glucose Level 219 mg/dL (70-99) Calcium Level 7.4 mg/dL (8.5-10.1) Test 09/22/16 13:21 09/22/16 16:50 09/22/16 21:08 09/23/16 07:00 O2 Saturation 93 % (92-99) Arterial Blood pH 7.48 (7.35-7.45) Arterial Blood pCO2 at Patient Temp 29 mmHg (35-46) Arterial Blood pO2 at Patient Temp 67 mmHg (65-108) Arterial Blood HCO3 21 mmol/L (21-28) Arterial Blood Base Excess -2 mmol/L (-3-3) FiO2 21 Glucose (Fingerstick) 198 mg/dL (70-99) 91 mg/dL (70-99) White Blood Count 8.4 x10^3/uL (4.0-11.0) Red Blood Count 2.71 x10^6/uL (4.30-5.70) Hemoglobin 8.3 g/dL (13.0-17.5) Hematocrit 24.3 % (39.0-53.0) Mean Corpuscular Volume 90 fL (79-100) Mean Corpuscular Hemoglobin 31 pg (25-35) Mean Corpuscular Hemoglobin Concent 34 g/dL (31-37) Red Cell Distribution Width 13.5 % (11.5-14.5) Platelet Count 206 x10^3/uL (140-400) Neutrophils (%) (Auto) 70 % (31-73) Lymphocytes (%) (Auto) 22 % (24-48) Monocytes (%) (Auto) 7 % (0-9) Eosinophils (%) (Auto) 0 % (0-3) Basophils (%) (Auto) 0 % (0-3) Neutrophils # (Auto) 5.9 x10^3uL (1.8-7.7) Lymphocytes # (Auto) 1.9 x10^3/uL (1.0-4.8) Monocytes # (Auto) 0.6 x10^3/uL (0.0-1.1) Eosinophils # (Auto) 0.0 x10^3/uL (0.0-0.7) Basophils # (Auto) 0.0 x10^3/uL (0.0-0.2) Sodium Level 143 mmol/L (136-145) Potassium Level 2.8 mmol/L (3.5-5.1) Chloride Level 108 mmol/L (98-107) Carbon Dioxide Level 26 mmol/L (21-32) Anion Gap 9 (6-14) Blood Urea Nitrogen 63 mg/dL (8-26) Creatinine 1.7 mg/dL (0.7-1.3) Estimated GFR (Cockcroft-Gault) 38.8 BUN/Creatinine Ratio 37 (6-20) Glucose Level 108 mg/dL (70-99) Calcium Level 7.3 mg/dL (8.5-10.1) Total Bilirubin 0.3 mg/dL (0.2-1.0) Aspartate Amino Transf (AST/SGOT) 24 U/L (15-37) Alanine Aminotransferase (ALT/SGPT) 14 U/L (16-63) Alkaline Phosphatase 72 U/L (46-116) Total Protein 4.9 g/dL (6.4-8.2) Albumin 1.7 g/dL (3.4-5.0) Albumin/Globulin Ratio 0.5 (1.0-1.7) Test 09/23/16 07:48 09/23/16 11:44 Glucose (Fingerstick) 128 mg/dL (70-99) 99 mg/dL (70-99) Laboratory Tests Test 6/28/17 16:50 09/22/16 21:08 09/23/16 07:00 09/23/16 07:48 Glucose (Fingerstick) 198 mg/dL (70-99) 91 mg/dL (70-99) 128 mg/dL (70-99) White Blood Count 8.4 x10^3/uL (4.0-11.0) Red Blood Count 2.71 x10^6/uL (4.30-5.70) Hemoglobin 8.3 g/dL (13.0-17.5) Hematocrit 24.3 % (39.0-53.0) Mean Corpuscular Volume 90 fL (79-100) Mean Corpuscular Hemoglobin 31 pg (25-35) Mean Corpuscular Hemoglobin Concent 34 g/dL (31-37) Red Cell Distribution Width 13.5 % (11.5-14.5) Platelet Count 206 x10^3/uL (140-400) Neutrophils (%) (Auto) 70 % (31-73) Lymphocytes (%) (Auto) 22 % (24-48) Monocytes (%) (Auto) 7 % (0-9) Eosinophils (%) (Auto) 0 % (0-3) Basophils (%) (Auto) 0 % (0-3) Neutrophils # (Auto) 5.9 x10^3uL (1.8-7.7) Lymphocytes # (Auto) 1.9 x10^3/uL (1.0-4.8) Monocytes # (Auto) 0.6 x10^3/uL (0.0-1.1) Eosinophils # (Auto) 0.0 x10^3/uL (0.0-0.7) Basophils # (Auto) 0.0 x10^3/uL (0.0-0.2) Sodium Level 143 mmol/L (136-145) Potassium Level 2.8 mmol/L (3.5-5.1) Chloride Level 108 mmol/L (98-107) Carbon Dioxide Level 26 mmol/L (21-32) Anion Gap 9 (6-14) Blood Urea Nitrogen 63 mg/dL (8-26) Creatinine 1.7 mg/dL (0.7-1.3) Estimated GFR (Cockcroft-Gault) 38.8 BUN/Creatinine Ratio 37 (6-20) Glucose Level 108 mg/dL (70-99) Calcium Level 7.3 mg/dL (8.5-10.1) Total Bilirubin 0.3 mg/dL (0.2-1.0) Aspartate Amino Transf (AST/SGOT) 24 U/L (15-37) Alanine Aminotransferase (ALT/SGPT) 14 U/L (16-63) Alkaline Phosphatase 72 U/L (46-116) Total Protein 4.9 g/dL (6.4-8.2) Albumin 1.7 g/dL (3.4-5.0) Albumin/Globulin Ratio 0.5 (1.0-1.7) Test 09/23/16 11:44 Glucose (Fingerstick) 99 mg/dL (70-99) Microbiology 09/21/16 Urine Culture - Preliminary, Resulted 09/21/16 Urine Culture Result 1 (NORBERTO) - Preliminary, Resulted Medications Current Medications Sodium Chloride 1,000 ml @ 1,000 mls/hr 1X ONCE IV Last administered on 19:49; Start 09/20/16 at 17:15; Stop 09/20/16 at 18:14; Status DC Sodium Chloride 1,000 ml @ 1,000 mls/hr 1X ONCE IV Last administered on 19:51; Start 09/20/16 at 17:15; Stop 09/20/16 at 18:14; Status DC Vancomycin HCl (Vanco Per Pharmacy) 1 each PRN DAILY PRN MC SEE COMMENTS Last administered on 09/20/16 19:32; Start 09/20/16 at 17:15; Stop 09/21/16 at 07:43 ; Status DC Piperacillin Sod/ Tazobactam Sod (Zosyn Per Pharmacy) 1 each PRN DAILY PRN MC SEE COMMENTS; Start 09/20/16 at 17:15; Stop 09/20/16 at 17:15; Status DC Sodium Chloride 1,000 ml @ 100 mls/hr Q10H IV Last administered on 09/23/16 03:06; Start 09/20/16 at 17:15 Hydrocortisone Sodium Succinate (Solu-CORTEF) 100 mg 1X ONCE IV Last administered on 09/20/16 19:50; Start 09/20/16 at 17:15; Stop 09/20/16 at 17:16 ; Status DC Hydrocortisone Sodium Succinate (Solu-CORTEF) 100 mg Q8HRS IV Last administered on 09/22/16 05:30; Start 09/20/16 at 22:00; Stop 09/22/16 at 11:15 ; Status DC Vancomycin HCl 2 gm/Sodium Chloride 500 ml @ 250 mls/hr 1X ONCE IV ; Start at 17:15; Stop 09/20/16 at 19:14; Status Cancel Piperacillin Sod/ Tazobactam Sod 4.5 gm/Sodium Chloride 100 ml @ 200 mls/hr Q6HRS IV ; Start 09/20/16 at 18:00; Stop 09/20/16 at 18:00; Status DC Albuterol/ Ipratropium (Duoneb) 3 ml RTQID NEB Last administered on 09/23/16 11:01; Start 09/20/16 at 17:30 Calcium Carbonate/ Glycine (Tums) 500 mg TID PO ; Start 09/20/16 at 21:00 Docusate Sodium (Colace) 100 mg BID PO ; Start 09/20/16 at 21:00 Lamotrigine (LaMICtal) 100 mg BID PO ; Start 09/20/16 at 21:00; Stop 09/20/16 at 21:00; Status DC Levothyroxine Sodium (Synthroid) 112 mcg DAILY PO ; Start 09/21/16 at 09:00; Stop 09/21/16 at 09:00; Status DC Ondansetron HCl (Zofran Odt) 4 mg PRN Q4HRS PRN PO NAUSEA/VOMITING; Start 09/20 at 17:30 Phenytoin Sodium (Dilantin) 300 mg HS PO ; Start 09/20/16 at 21:00; Stop at 21:00; Status DC Capsaicin (Zostrix) 1 loulou BID TP Last administered on 09/22/16 20:15; Start at 21:00 Artificial Tears (Artificial Tears) 1 drop BID OU Last administered on 20:14; Start 09/20/16 at 21:00 Insulin Aspart Prota 70%/Aspart 30% (Novolog Mix 70-30) 10 units DAILYBFRSUP SQ Last administered on 09/22/16 17:47; Start 09/20/16 at 17:45; Stop 09/23/16 at 09:31; Status DC Insulin Aspart Prota 70%/Aspart 30% (Novolog Mix 70-30) 22 units DAILYAC SQ Last administered on 09/23/16 09:20; Start 09/21/16 at 07:30; Stop 09/23/16 at 09:31; Status DC Famotidine (Pepcid) 20 mg BID PO ; Start 09/20/16 at 21:00; Stop 09/21/16 at 08: 25; Status DC Heparin Sodium (Porcine) (Heparin Sq) 5,000 unit Q12HR SQ Last administered on 09/23/16 09:21; Start 09/20/16 at 21:00 Levetiracetam (Keppra) 500 mg BID PO ; Start 09/20/16 at 21:00; Stop 09/20/16 at 21:00; Status DC Doxycycline Hyclate 100 mg/ Dextrose 100 ml @ 50 mls/hr Q12HR IV Last administered on 09/23/16 09:27; Start 09/20/16 at 21:00 Vancomycin HCl 1 each 1X ONCE MC ; Start 09/22/16 at 16:00; Stop 09/22/16 at 16 :00; Status DC Levetiracetam 500 mg/Sodium Chloride 100 ml @ 400 mls/hr Q12HR IV Last administered on 09/23/16 10:43; Start 09/20/16 at 21:00 Norepinephrine Bitartrate 250 ml @ 0 mls/hr CONT PRN IV SEE I/O RECORD Last administered on 09/21/16 07:27; Start 09/20/16 at 21:45; Stop 09/22/16 at 16:09 ; Status DC Morphine Sulfate 4 mg PRN Q2HR PRN IV SEVERE PAIN Last administered on 20:59; Start 09/20/16 at 23:15; Stop 09/22/16 at 11:15; Status DC Albumin Human 500 ml @ 125 mls/hr 1X ONCE IV Last administered on 09/20/16 23:47; Start 09/20/16 at 23:30; Stop 09/21/16 at 03:29; Status DC Linezolid 300 ml @ 300 mls/hr Q12HR IV Last administered on 09/22/16 23:04; Start 09/21/16 at 09:00; Stop 09/23/16 at 10:17; Status DC Meropenem 500 mg/ Sodium Chloride 50 ml @ 100 mls/hr DAILY@0800 IV Last administered on 09/23/16 09:05; Start 09/21/16 at 08:00; Stop 09/23/16 at 10:17 ; Status DC Micafungin Sodium 100 mg/Dextrose 100 ml @ 100 mls/hr Q24H IV Last administered on 09/22/16 15:16; Start 09/21/16 at 10:00; Stop 09/23/16 at 10:17 ; Status DC Famotidine (Pepcid) 20 mg DAILY IVP Last administered on 09/23/16 09:05; Start 09/21/16 at 09:00 Levothyroxine Sodium 56 mcg/ Sodium Chloride 5 ml @ 100 mls/hr DAILY IVP Last administered on 09/23/16 09:28; Start 09/21/16 at 09:00 Fosphenytoin Sodium (Cerebyx) 100 mg Q8HRS IV Last administered on 09/23/16 06 :32; Start 09/21/16 at 09:00 Amino Acids/ Glycerin/ Electrolytes 1,000 ml @ 80 mls/hr [id number] IV Last administered on 09/23/16 03:06; Start 09/21/16 at 10:30 Morphine Sulfate 1 mg PRN Q2HR PRN IV SEVERE PAIN Last administered on 17:53; Start 09/22/16 at 11:15 Insulin Aspart (NovoLOG) 0-7 UNITS TIDWMEALS SQ Last administered on 09/22/16 17:47; Start 09/22/16 at 12:00 Dextrose (Dextrose 50%-Water Syringe) 12.5 gm PRN Q15MIN PRN IV SEE COMMENTS; Start 09/22/16 at 11:30 Potassium Chloride 50 ml @ 50 mls/hr Q1H IV Last administered on 09/23/16 11: 57; Start 09/23/16 at 10:00; Stop 09/23/16 at 11:59; Status DC Meropenem 500 mg/ Sodium Chloride 50 ml @ 100 mls/hr Q8HRS IV ; Start 09/23/16 at 14:00 Potassium Chloride 50 ml @ 50 mls/hr Q1H IV ; Start 09/23/16 at 13:30; Stop at 15:29 Active Scripts Active Reported Keppra (Levetiracetam) 500 Mg Tablet 500 Mg PO BID Lamictal (Lamotrigine) 100 Mg Tablet 1 Tab PO BID Lasix (Furosemide) 20 Mg Tablet 1 Tab PO DAILY Humulin 70-30 Vial (Hum Insulin Nph/Reg Insulin Hm) 100 Unit/1 Ml Vial 22 Unit SQ Q AM Synthroid (Levothyroxine Sodium) 112 Mcg Tablet 1 Tab PO DAILY Humulin 70-30 Vial (Hum Insulin Nph/Reg Insulin Hm) 100 Unit/1 Ml Vial 10 Unit SQ DAILYBFRSUP Dilantin (Phenytoin Sodium Extended) 100 Mg Capsule 300 Mg PO HS Vitals/I & O Vital Sign - Last 24 Hours 09/22/16 09/22/16 09/22/16 09/22/16 14:59 19:00 19:28 19:31 Temp 98.2 98.2 Pulse 84 Resp 18 18 B/P (MAP) 95/34 (54) Pulse Ox 94 95 O2 Delivery Room Air Room Air Room Air Room Air O2 Flow Rate 3.0 09/22/16 09/22/16 09/23/16 09/23/16 20:00 23:00 03:00 07:00 Temp 98.1 98.8 98.1 98.1 98.8 98.1 Pulse 80 85 80 Resp 18 18 18 B/P (MAP) 98/31 (53) 95/27 (49) 96/42 (60) Pulse Ox 93 94 95 O2 Delivery Room Air Room Air Room Air Room Air O2 Flow Rate 3.0 09/23/16 09/23/16 09/23/16 07:18 11:00 11:02 Temp 98.5 98.5 Pulse 105 Resp 20 B/P (MAP) 125/56 (79) Pulse Ox 95 92 95 O2 Delivery Room Air Room Air Room Air Intake and Output 09/22/16 09/22/16 09/23/16 15:00 23:00 07:00 Intake Total 0 ml 1400 ml Output Total 275 ml 950 ml Balance -275 ml 0 ml 450 ml ELANA MONTILLA MD Sep 23, 2016 13:40
--- NOTE | 2016-09-23 14:23 | PDOC2 ---
PALLIATIVE CARE Palliative Care Note Palliative Care Consult requested by Dr. Fernández to address code status Patient confused--at baseline per [facility] guards. Had been on Hospice at facility. Per Dimitri COLLINS CM. patient has DPOA but is not available to meet Plan is for patient to return to [facility]. Staff at facility will address code status on return. YESSENIA MARTINEZ Sep 23, 2016 14:23
--- NOTE | 2016-09-23 14:29 | PDOC ---
PROGRESS NOTES Assessment Epilepsy NPO status Metabolic encephalopathy Plan EEG Continue current treatment Resume lamotrigine when taking orally Subjective none Objective Vital Signs Date Time Temp Pulse Resp B/P (MAP) Pulse Ox O2 Delivery O2 Flow Rate FiO2 09/23/16 11:02 95 Room Air 09/23/16 11:00 98.5 105 20 125/56 (79) 98.5 09/22/16 20:00 3.0 Intake and Output 09/23/16 07:00 Intake Total 1400 ml Output Total 1225 ml Balance 175 ml Intake Oral 0 ml Other 1400 ml Output Urine Total 1075 ml Stool Total 150 ml PHYSICAL EXAM Alert. Oriented only to person. "Goddamn, leave me alone!" PERRL. EOMI. CN: no focal findings. Muscle tone: normal. Muscle strength: Moves all extremities DTR: 1+ Plantar reflex: flexor Gait: not examined in bed. Sensory exam: no abnormal findings. No cerebellar signs elicited. Review of Relevant I have reviewed the following items juliocesar (where applicable) has been applied. Labs Laboratory Tests Test 09/21/16 17:16 09/22/16 05:45 09/22/16 07:44 09/22/16 11:13 Glucose (Fingerstick) 191 mg/dL (70-99) 228 mg/dL (70-99) 247 mg/dL (70-99) White Blood Count 5.0 x10^3/uL (4.0-11.0) Red Blood Count 4.28 x10^6/uL (4.30-5.70) Hemoglobin 12.9 g/dL (13.0-17.5) Hematocrit 38.5 % (39.0-53.0) Mean Corpuscular Volume 90 fL (79-100) Mean Corpuscular Hemoglobin 30 pg (25-35) Mean Corpuscular Hemoglobin Concent 34 g/dL (31-37) Red Cell Distribution Width 13.6 % (11.5-14.5) Platelet Count 139 x10^3/uL (140-400) Neutrophils (%) (Auto) 83 % (31-73) Lymphocytes (%) (Auto) 11 % (24-48) Monocytes (%) (Auto) 6 % (0-9) Eosinophils (%) (Auto) 0 % (0-3) Basophils (%) (Auto) 0 % (0-3) Neutrophils # (Auto) 4.1 x10^3uL (1.8-7.7) Lymphocytes # (Auto) 0.6 x10^3/uL (1.0-4.8) Monocytes # (Auto) 0.3 x10^3/uL (0.0-1.1) Eosinophils # (Auto) 0.0 x10^3/uL (0.0-0.7) Basophils # (Auto) 0.0 x10^3/uL (0.0-0.2) Sodium Level 142 mmol/L (136-145) Potassium Level 3.4 mmol/L (3.5-5.1) Chloride Level 105 mmol/L (98-107) Carbon Dioxide Level 26 mmol/L (21-32) Anion Gap 11 (6-14) Blood Urea Nitrogen 79 mg/dL (8-26) Creatinine 2.9 mg/dL (0.7-1.3) Estimated GFR (Cockcroft-Gault) 20.9 Glucose Level 219 mg/dL (70-99) Calcium Level 7.4 mg/dL (8.5-10.1) Test 09/22/16 13:21 09/22/16 16:50 09/22/16 21:08 09/23/16 07:00 O2 Saturation 93 % (92-99) Arterial Blood pH 7.48 (7.35-7.45) Arterial Blood pCO2 at Patient Temp 29 mmHg (35-46) Arterial Blood pO2 at Patient Temp 67 mmHg (65-108) Arterial Blood HCO3 21 mmol/L (21-28) Arterial Blood Base Excess -2 mmol/L (-3-3) FiO2 21 Glucose (Fingerstick) 198 mg/dL (70-99) 91 mg/dL (70-99) White Blood Count 8.4 x10^3/uL (4.0-11.0) Red Blood Count 2.71 x10^6/uL (4.30-5.70) Hemoglobin 8.3 g/dL (13.0-17.5) Hematocrit 24.3 % (39.0-53.0) Mean Corpuscular Volume 90 fL (79-100) Mean Corpuscular Hemoglobin 31 pg (25-35) Mean Corpuscular Hemoglobin Concent 34 g/dL (31-37) Red Cell Distribution Width 13.5 % (11.5-14.5) Platelet Count 206 x10^3/uL (140-400) Neutrophils (%) (Auto) 70 % (31-73) Lymphocytes (%) (Auto) 22 % (24-48) Monocytes (%) (Auto) 7 % (0-9) Eosinophils (%) (Auto) 0 % (0-3) Basophils (%) (Auto) 0 % (0-3) Neutrophils # (Auto) 5.9 x10^3uL (1.8-7.7) Lymphocytes # (Auto) 1.9 x10^3/uL (1.0-4.8) Monocytes # (Auto) 0.6 x10^3/uL (0.0-1.1) Eosinophils # (Auto) 0.0 x10^3/uL (0.0-0.7) Basophils # (Auto) 0.0 x10^3/uL (0.0-0.2) Sodium Level 143 mmol/L (136-145) Potassium Level 2.8 mmol/L (3.5-5.1) Chloride Level 108 mmol/L (98-107) Carbon Dioxide Level 26 mmol/L (21-32) Anion Gap 9 (6-14) Blood Urea Nitrogen 63 mg/dL (8-26) Creatinine 1.7 mg/dL (0.7-1.3) Estimated GFR (Cockcroft-Gault) 38.8 BUN/Creatinine Ratio 37 (6-20) Glucose Level 108 mg/dL (70-99) Calcium Level 7.3 mg/dL (8.5-10.1) Total Bilirubin 0.3 mg/dL (0.2-1.0) Aspartate Amino Transf (AST/SGOT) 24 U/L (15-37) Alanine Aminotransferase (ALT/SGPT) 14 U/L (16-63) Alkaline Phosphatase 72 U/L (46-116) Total Protein 4.9 g/dL (6.4-8.2) Albumin 1.7 g/dL (3.4-5.0) Albumin/Globulin Ratio 0.5 (1.0-1.7) Test 09/23/16 07:48 09/23/16 11:44 Glucose (Fingerstick) 128 mg/dL (70-99) 99 mg/dL (70-99) Laboratory Tests Test 09/22/16 16:50 09/22/16 21:08 09/23/16 07:00 09/23/16 07:48 Glucose (Fingerstick) 198 mg/dL (70-99) 91 mg/dL (70-99) 128 mg/dL (70-99) White Blood Count 8.4 x10^3/uL (4.0-11.0) Red Blood Count 2.71 x10^6/uL (4.30-5.70) Hemoglobin 8.3 g/dL (13.0-17.5) Hematocrit 24.3 % (39.0-53.0) Mean Corpuscular Volume 90 fL (79-100) Mean Corpuscular Hemoglobin 31 pg (25-35) Mean Corpuscular Hemoglobin Concent 34 g/dL (31-37) Red Cell Distribution Width 13.5 % (11.5-14.5) Platelet Count 206 x10^3/uL (140-400) Neutrophils (%) (Auto) 70 % (31-73) Lymphocytes (%) (Auto) 22 % (24-48) Monocytes (%) (Auto) 7 % (0-9) Eosinophils (%) (Auto) 0 % (0-3) Basophils (%) (Auto) 0 % (0-3) Neutrophils # (Auto) 5.9 x10^3uL (1.8-7.7) Lymphocytes # (Auto) 1.9 x10^3/uL (1.0-4.8) Monocytes # (Auto) 0.6 x10^3/uL (0.0-1.1) Eosinophils # (Auto) 0.0 x10^3/uL (0.0-0.7) Basophils # (Auto) 0.0 x10^3/uL (0.0-0.2) Sodium Level 143 mmol/L (136-145) Potassium Level 2.8 mmol/L (3.5-5.1) Chloride Level 108 mmol/L (98-107) Carbon Dioxide Level 26 mmol/L (21-32) Anion Gap 9 (6-14) Blood Urea Nitrogen 63 mg/dL (8-26) Creatinine 1.7 mg/dL (0.7-1.3) Estimated GFR (Cockcroft-Gault) 38.8 BUN/Creatinine Ratio 37 (6-20) Glucose Level 108 mg/dL (70-99) Calcium Level 7.3 mg/dL (8.5-10.1) Total Bilirubin 0.3 mg/dL (0.2-1.0) Aspartate Amino Transf (AST/SGOT) 24 U/L (15-37) Alanine Aminotransferase (ALT/SGPT) 14 U/L (16-63) Alkaline Phosphatase 72 U/L (46-116) Total Protein 4.9 g/dL (6.4-8.2) Albumin 1.7 g/dL (3.4-5.0) Albumin/Globulin Ratio 0.5 (1.0-1.7) Test 09/23/16 11:44 Glucose (Fingerstick) 99 mg/dL (70-99) Microbiology 09/21/16 Urine Culture - Preliminary, Resulted 09/21/16 Urine Culture Result 1 (NORBERTO) - Preliminary, Resulted Medications Current Medications Sodium Chloride 1,000 ml @ 1,000 mls/hr 1X ONCE IV Last administered on 19:49; Start 09/20/16 at 17:15; Stop 09/20/16 at 18:14; Status DC Sodium Chloride 1,000 ml @ 1,000 mls/hr 1X ONCE IV Last administered on 19:51; Start 09/20/16 at 17:15; Stop 09/20/16 at 18:14; Status DC Vancomycin HCl (Vanco Per Pharmacy) 1 each PRN DAILY PRN MC SEE COMMENTS Last administered on 09/20/16 19:32; Start 09/20/16 at 17:15; Stop 09/21/16 at 07:43 ; Status DC Piperacillin Sod/ Tazobactam Sod (Zosyn Per Pharmacy) 1 each PRN DAILY PRN MC SEE COMMENTS; Start 09/20/16 at 17:15; Stop 09/20/16 at 17:15; Status DC Sodium Chloride 1,000 ml @ 100 mls/hr Q10H IV Last administered on 09/23/16 03:06; Start 09/20/16 at 17:15 Hydrocortisone Sodium Succinate (Solu-CORTEF) 100 mg 1X ONCE IV Last administered on 09/20/16 19:50; Start 09/20/16 at 17:15; Stop 09/20/16 at 17:16 ; Status DC Hydrocortisone Sodium Succinate (Solu-CORTEF) 100 mg Q8HRS IV Last administered on 09/22/16 05:30; Start 09/20/16 at 22:00; Stop 09/22/16 at 11:15 ; Status DC Vancomycin HCl 2 gm/Sodium Chloride 500 ml @ 250 mls/hr 1X ONCE IV ; Start at 17:15; Stop 09/20/16 at 19:14; Status Cancel Piperacillin Sod/ Tazobactam Sod 4.5 gm/Sodium Chloride 100 ml @ 200 mls/hr Q6HRS IV ; Start 09/20/16 at 18:00; Stop 09/20/16 at 18:00; Status DC Albuterol/ Ipratropium (Duoneb) 3 ml RTQID NEB Last administered on 09/23/16 11:01; Start 09/20/16 at 17:30 Calcium Carbonate/ Glycine (Tums) 500 mg TID PO ; Start 09/20/16 at 21:00 Docusate Sodium (Colace) 100 mg BID PO ; Start 09/20/16 at 21:00 Lamotrigine (LaMICtal) 100 mg BID PO ; Start 09/20/16 at 21:00; Stop 09/20/16 at 21:00; Status DC Levothyroxine Sodium (Synthroid) 112 mcg DAILY PO ; Start 09/21/16 at 09:00; Stop 09/21/16 at 09:00; Status DC Ondansetron HCl (Zofran Odt) 4 mg PRN Q4HRS PRN PO NAUSEA/VOMITING; Start 09/20 at 17:30 Phenytoin Sodium (Dilantin) 300 mg HS PO ; Start 09/20/16 at 21:00; Stop at 21:00; Status DC Capsaicin (Zostrix) 1 loulou BID TP Last administered on 09/22/16 20:15; Start at 21:00 Artificial Tears (Artificial Tears) 1 drop BID OU Last administered on 20:14; Start 09/20/16 at 21:00 Insulin Aspart Prota 70%/Aspart 30% (Novolog Mix 70-30) 10 units DAILYBFRSUP SQ Last administered on 09/22/16 17:47; Start 09/20/16 at 17:45; Stop 09/23/16 at 09:31; Status DC Insulin Aspart Prota 70%/Aspart 30% (Novolog Mix 70-30) 22 units DAILYAC SQ Last administered on 09/23/16 09:20; Start 09/21/16 at 07:30; Stop 09/23/16 at 09:31; Status DC Famotidine (Pepcid) 20 mg BID PO ; Start 09/20/16 at 21:00; Stop 09/21/16 at 08: 25; Status DC Heparin Sodium (Porcine) (Heparin Sq) 5,000 unit Q12HR SQ Last administered on 09/23/16 09:21; Start 09/20/16 at 21:00 Levetiracetam (Keppra) 500 mg BID PO ; Start 09/20/16 at 21:00; Stop 09/20/16 at 21:00; Status DC Doxycycline Hyclate 100 mg/ Dextrose 100 ml @ 50 mls/hr Q12HR IV Last administered on 09/23/16 09:27; Start 09/20/16 at 21:00 Vancomycin HCl 1 each 1X ONCE MC ; Start 09/22/16 at 16:00; Stop 09/22/16 at 16 :00; Status DC Levetiracetam 500 mg/Sodium Chloride 100 ml @ 400 mls/hr Q12HR IV Last administered on 09/23/16 10:43; Start 09/20/16 at 21:00 Norepinephrine Bitartrate 250 ml @ 0 mls/hr CONT PRN IV SEE I/O RECORD Last administered on 09/21/16 07:27; Start 09/20/16 at 21:45; Stop 09/22/16 at 16:09 ; Status DC Morphine Sulfate 4 mg PRN Q2HR PRN IV SEVERE PAIN Last administered on 20:59; Start 09/20/16 at 23:15; Stop 09/22/16 at 11:15; Status DC Albumin Human 500 ml @ 125 mls/hr 1X ONCE IV Last administered on 09/20/16 23:47; Start 09/20/16 at 23:30; Stop 09/21/16 at 03:29; Status DC Linezolid 300 ml @ 300 mls/hr Q12HR IV Last administered on 09/22/16 23:04; Start 09/21/16 at 09:00; Stop 09/23/16 at 10:17; Status DC Meropenem 500 mg/ Sodium Chloride 50 ml @ 100 mls/hr DAILY@0800 IV Last administered on 09/23/16 09:05; Start 09/21/16 at 08:00; Stop 09/23/16 at 10:17 ; Status DC Micafungin Sodium 100 mg/Dextrose 100 ml @ 100 mls/hr Q24H IV Last administered on 09/22/16 15:16; Start 09/21/16 at 10:00; Stop 09/23/16 at 10:17 ; Status DC Famotidine (Pepcid) 20 mg DAILY IVP Last administered on 09/23/16 09:05; Start 09/21/16 at 09:00 Levothyroxine Sodium 56 mcg/ Sodium Chloride 5 ml @ 100 mls/hr DAILY IVP Last administered on 09/23/16 09:28; Start 09/21/16 at 09:00 Fosphenytoin Sodium (Cerebyx) 100 mg Q8HRS IV Last administered on 09/23/16 14 :11; Start 09/21/16 at 09:00 Amino Acids/ Glycerin/ Electrolytes 1,000 ml @ 80 mls/hr [id number] IV Last administered on 09/23/16 03:06; Start 09/21/16 at 10:30 Morphine Sulfate 1 mg PRN Q2HR PRN IV SEVERE PAIN Last administered on 17:53; Start 09/22/16 at 11:15 Insulin Aspart (NovoLOG) 0-7 UNITS TIDWMEALS SQ Last administered on 09/22/16 17:47; Start 09/22/16 at 12:00 Dextrose (Dextrose 50%-Water Syringe) 12.5 gm PRN Q15MIN PRN IV SEE COMMENTS; Start 09/22/16 at 11:30 Potassium Chloride 50 ml @ 50 mls/hr Q1H IV Last administered on 09/23/16 14: 10; Start 09/23/16 at 10:00; Stop 09/23/16 at 11:59; Status DC Meropenem 500 mg/ Sodium Chloride 50 ml @ 100 mls/hr Q8HRS IV Last administered on 09/23/16t 14:11; Start 09/23/16 at 14:00 Potassium Chloride 50 ml @ 50 mls/hr Q1H IV ; Start 09/23/16 at 13:30; Stop at 15:29 Active Scripts Active Reported Keppra (Levetiracetam) 500 Mg Tablet 500 Mg PO BID Lamictal (Lamotrigine) 100 Mg Tablet 1 Tab PO BID Lasix (Furosemide) 20 Mg Tablet 1 Tab PO DAILY Humulin 70-30 Vial (Hum Insulin Nph/Reg Insulin Hm) 100 Unit/1 Ml Vial 22 Unit SQ Q AM Synthroid (Levothyroxine Sodium) 112 Mcg Tablet 1 Tab PO DAILY Humulin 70-30 Vial (Hum Insulin Nph/Reg Insulin Hm) 100 Unit/1 Ml Vial 10 Unit SQ DAILYBFRSUP Dilantin (Phenytoin Sodium Extended) 100 Mg Capsule 300 Mg PO HS Vitals/I & O Vital Sign - Last 24 Hours 09/22/16 09/22/16 09/22/16 09/22/16 14:59 19:00 19:28 19:31 Temp 98.2 98.2 Pulse 84 Resp 18 18 B/P (MAP) 95/34 (54) Pulse Ox 94 95 O2 Delivery Room Air Room Air Room Air Room Air O2 Flow Rate 3.0 09/22/16 09/22/16 09/23/16 09/23/16 20:00 23:00 03:00 07:00 Temp 98.1 98.8 98.1 98.1 98.8 98.1 Pulse 80 85 80 Resp 18 18 18 B/P (MAP) 98/31 (53) 95/27 (49) 96/42 (60) Pulse Ox 93 94 95 O2 Delivery Room Air Room Air Room Air Room Air O2 Flow Rate 3.0 09/23/16 09/23/16 09/23/16 07:18 11:00 11:02 Temp 98.5 98.5 Pulse 105 Resp 20 B/P (MAP) 125/56 (79) Pulse Ox 95 92 95 O2 Delivery Room Air Room Air Room Air Intake and Output 09/22/16 09/22/16 09/23/16 15:00 23:00 07:00 Intake Total 0 ml 1400 ml Output Total 275 ml 950 ml Balance -275 ml 0 ml 450 ml JUAN FERGUSON MD Sep 23, 2016 14:29
[2016-09-23 15:00] VITALS: BP 93/40
[2016-09-23 19:00] VITALS: BP 128/77
[2016-09-23 23:00] VITALS: BP 130/46
[2016-09-24 03:00] VITALS: BP 142/48
[2016-09-24] MEDS: IV NORMAL SALINE 1000ML BAG 1,000 ML IV SCH (03:55)
[2016-09-24 04:49] LABS: BASO % 0 % (0-3); EOS % 0 % (0-3); HEMATOCRIT 25.8 % (39.0-53.0); HEMOGLOBIN 8.8 g/dL (13.0-17.5); LYMPH # 2.1 x10^3/uL (1.0-4.8); LYMPH % 24 % (24-48); MEAN CORPUSCULAR HEMOGLOBIN 31 pg (25-35); MEAN CORPUSCULAR HGB CONC 34 g/dL (31-37); MEAN CORPUSCULAR VOLUME 90 fL (79-100); MONO % 9 % (0-9); NEUT % 66 % (31-73); PLATELET COUNT 198 x10^3/uL (140-400); RED BLOOD COUNT 2.87 x10^6/uL (4.30-5.70); RED CELL DISTRIBUTION WIDTH 13.9 % (11.5-14.5); WHITE BLOOD COUNT 8.6 x10^3/uL (4.0-11.0)
[2016-09-24 05:16] LABS: CALCIUM 7.6 mg/dL (8.5-10.1); CREATININE 1.2 mg/dL (0.7-1.3); MAGNESIUM 1.3 mg/dL (1.8-2.4); POTASSIUM 3.3 mmol/L (3.5-5.1)
[2016-09-24] MEDS: MEROPENEM 500 MG in IV NORMAL SALINE 50ML 50 ML IV SCH ×2 (05:38→15:00)
[2016-09-24] MEDS: FOSPHENYTOIN 100 MG/2 ML VIAL. IV SCH ×3 (05:38→23:20)
[2016-09-24 07:00] VITALS: BP 147/53
[2016-09-24] MEDS: IPRATRPIUM/ALBUTEROL 0.5/2.5MG 3 ML NEBU. NEB SCH ×4 (08:12→20:28)
[2016-09-24] MEDS ORDERED: POTASSIUM CHLORIDE 20MEQ 50 ML IV ONE (08:45)
[2016-09-24] MEDS ORDERED: MAGNESIUM SULFATE 4GM 100 ML IV ONE (08:45)
[2016-09-24] MEDS: POLYVINYL ALCOHOL 1.4% OPHTH SOLUTION 15ML BOTTLE. OU SCH ×2 (09:00→23:18)
[2016-09-24] MEDS: CAPSAICIN 0.025% TOPICAL CREAM 60GM TUBE. TP SCH ×2 (09:00→23:18)
[2016-09-24] MEDS: DOXYCYCLINE HYCLATE 100 MG in IV DEXTROSE 5% 100 ML IV SCH ×2 (09:15→23:18)
[2016-09-24] MEDS: DOCUSATE SODIUM 100 MG CAPSULE. PO SCH ×2 (09:21→21:00)
[2016-09-24] MEDS: CALCIUM CARBONATE 500 MG TAB.CHEW PO SCH ×3 (09:21→23:17)
[2016-09-24] MEDS: FAMOTIDINE 20 MG/2 ML VIAL IVP SCH (09:21)
[2016-09-24] MEDS: INSULIN ASPART 300 UNITS/3 ML INSULN.PEN SQ SCH ×3 (09:46→17:00)
[2016-09-24] MEDS: HEPARIN PF for SUB-Q USE 5,000 UNIT/0.5 ML VIAL. SQ SCH ×2 (09:46→23:36)
[2016-09-24] MEDS: NORMAL SALINE IVP SCH (10:57)
[2016-09-24] MEDS: LEVOTHYROXINE SODIUM IVP SCH (10:57)
[2016-09-24 11:00] VITALS: BP 130/50
--- NOTE | 2016-09-24 11:25 | PDOC ---
PROGRESS NOTES Assessment Epilepsy NPO status Metabolic encephalopathy Plan EEG, okay to discharge if I don't get it read before he leaves Continue current treatment Resume lamotrigine when taking orally Subjective None Objective Vital Signs Date Time Temp Pulse Resp B/P (MAP) Pulse Ox O2 Delivery O2 Flow Rate FiO2 09/24/16 11:00 100.6 91 19 130/50 (76) 95 Room Air 100.6 09/23/16 20:00 3.0 Intake and Output 09/24/16 07:00 Intake Total 250 ml Output Total 4025 ml Balance -3775 ml IV Total 250 ml Output Urine Total 3675 ml Stool Total 350 ml PHYSICAL EXAM Alert. Oriented only to person. PERRL. EOMI. CN: no focal findings. Muscle tone: normal. Muscle strength: Moves all extremities DTR: 1+ Plantar reflex: flexor Gait: not examined in bed. Sensory exam: no abnormal findings. No cerebellar signs elicited. Review of Relevant I have reviewed the following items juliocesar (where applicable) has been applied. Labs Laboratory Tests Test 09/22/16 13:21 09/22/16 16:50 09/22/16 21:08 09/23/16 07:00 O2 Saturation 93 % (92-99) Arterial Blood pH 7.48 (7.35-7.45) Arterial Blood pCO2 at Patient Temp 29 mmHg (35-46) Arterial Blood pO2 at Patient Temp 67 mmHg (65-108) Arterial Blood HCO3 21 mmol/L (21-28) Arterial Blood Base Excess -2 mmol/L (-3-3) FiO2 21 Glucose (Fingerstick) 198 mg/dL (70-99) 91 mg/dL (70-99) White Blood Count 8.4 x10^3/uL (4.0-11.0) Red Blood Count 2.71 x10^6/uL (4.30-5.70) Hemoglobin 8.3 g/dL (13.0-17.5) Hematocrit 24.3 % (39.0-53.0) Mean Corpuscular Volume 90 fL (79-100) Mean Corpuscular Hemoglobin 31 pg (25-35) Mean Corpuscular Hemoglobin Concent 34 g/dL (31-37) Red Cell Distribution Width 13.5 % (11.5-14.5) Platelet Count 206 x10^3/uL (140-400) Neutrophils (%) (Auto) 70 % (31-73) Lymphocytes (%) (Auto) 22 % (24-48) Monocytes (%) (Auto) 7 % (0-9) Eosinophils (%) (Auto) 0 % (0-3) Basophils (%) (Auto) 0 % (0-3) Neutrophils # (Auto) 5.9 x10^3uL (1.8-7.7) Lymphocytes # (Auto) 1.9 x10^3/uL (1.0-4.8) Monocytes # (Auto) 0.6 x10^3/uL (0.0-1.1) Eosinophils # (Auto) 0.0 x10^3/uL (0.0-0.7) Basophils # (Auto) 0.0 x10^3/uL (0.0-0.2) Sodium Level 143 mmol/L (136-145) Potassium Level 2.8 mmol/L (3.5-5.1) Chloride Level 108 mmol/L (98-107) Carbon Dioxide Level 26 mmol/L (21-32) Anion Gap 9 (6-14) Blood Urea Nitrogen 63 mg/dL (8-26) Creatinine 1.7 mg/dL (0.7-1.3) Estimated GFR (Cockcroft-Gault) 38.8 BUN/Creatinine Ratio 37 (6-20) Glucose Level 108 mg/dL (70-99) Calcium Level 7.3 mg/dL (8.5-10.1) Total Bilirubin 0.3 mg/dL (0.2-1.0) Aspartate Amino Transf (AST/SGOT) 24 U/L (15-37) Alanine Aminotransferase (ALT/SGPT) 14 U/L (16-63) Alkaline Phosphatase 72 U/L (46-116) Total Protein 4.9 g/dL (6.4-8.2) Albumin 1.7 g/dL (3.4-5.0) Albumin/Globulin Ratio 0.5 (1.0-1.7) Test 09/23/16 07:48 09/23/16 11:44 09/23/16 17:05 09/23/16 20:54 Glucose (Fingerstick) 128 mg/dL (70-99) 99 mg/dL (70-99) 107 mg/dL (70-99) 115 mg/dL (70-99) Test 09/24/16 04:40 09/24/16 07:40 09/24/16 10:32 White Blood Count 8.6 x10^3/uL (4.0-11.0) Red Blood Count 2.87 x10^6/uL (4.30-5.70) Hemoglobin 8.8 g/dL (13.0-17.5) Hematocrit 25.8 % (39.0-53.0) Mean Corpuscular Volume 90 fL (79-100) Mean Corpuscular Hemoglobin 31 pg (25-35) Mean Corpuscular Hemoglobin Concent 34 g/dL (31-37) Red Cell Distribution Width 13.9 % (11.5-14.5) Platelet Count 198 x10^3/uL (140-400) Neutrophils (%) (Auto) 66 % (31-73) Lymphocytes (%) (Auto) 24 % (24-48) Monocytes (%) (Auto) 9 % (0-9) Eosinophils (%) (Auto) 0 % (0-3) Basophils (%) (Auto) 0 % (0-3) Neutrophils # (Auto) 5.7 x10^3uL (1.8-7.7) Lymphocytes # (Auto) 2.1 x10^3/uL (1.0-4.8) Monocytes # (Auto) 0.8 x10^3/uL (0.0-1.1) Eosinophils # (Auto) 0.0 x10^3/uL (0.0-0.7) Basophils # (Auto) 0.0 x10^3/uL (0.0-0.2) Sodium Level 144 mmol/L (136-145) Potassium Level 3.3 mmol/L (3.5-5.1) Chloride Level 112 mmol/L (98-107) Carbon Dioxide Level 24 mmol/L (21-32) Anion Gap 8 (6-14) Blood Urea Nitrogen 46 mg/dL (8-26) Creatinine 1.2 mg/dL (0.7-1.3) Estimated GFR (Cockcroft-Gault) 58.0 Glucose Level 151 mg/dL (70-99) Calcium Level 7.6 mg/dL (8.5-10.1) Magnesium Level 1.3 mg/dL (1.8-2.4) Glucose (Fingerstick) 174 mg/dL (70-99) 175 mg/dL (70-99) Laboratory Tests Test 09/23/16 11:44 09/23/16 17:05 09/23/16 20:54 09/24/16 04:40 Glucose (Fingerstick) 99 mg/dL (70-99) 107 mg/dL (70-99) 115 mg/dL (70-99) White Blood Count 8.6 x10^3/uL (4.0-11.0) Red Blood Count 2.87 x10^6/uL (4.30-5.70) Hemoglobin 8.8 g/dL (13.0-17.5) Hematocrit 25.8 % (39.0-53.0) Mean Corpuscular Volume 90 fL (79-100) Mean Corpuscular Hemoglobin 31 pg (25-35) Mean Corpuscular Hemoglobin Concent 34 g/dL (31-37) Red Cell Distribution Width 13.9 % (11.5-14.5) Platelet Count 198 x10^3/uL (140-400) Neutrophils (%) (Auto) 66 % (31-73) Lymphocytes (%) (Auto) 24 % (24-48) Monocytes (%) (Auto) 9 % (0-9) Eosinophils (%) (Auto) 0 % (0-3) Basophils (%) (Auto) 0 % (0-3) Neutrophils # (Auto) 5.7 x10^3uL (1.8-7.7) Lymphocytes # (Auto) 2.1 x10^3/uL (1.0-4.8) Monocytes # (Auto) 0.8 x10^3/uL (0.0-1.1) Eosinophils # (Auto) 0.0 x10^3/uL (0.0-0.7) Basophils # (Auto) 0.0 x10^3/uL (0.0-0.2) Sodium Level 144 mmol/L (136-145) Potassium Level 3.3 mmol/L (3.5-5.1) Chloride Level 112 mmol/L (98-107) Carbon Dioxide Level 24 mmol/L (21-32) Anion Gap 8 (6-14) Blood Urea Nitrogen 46 mg/dL (8-26) Creatinine 1.2 mg/dL (0.7-1.3) Estimated GFR (Cockcroft-Gault) 58.0 Glucose Level 151 mg/dL (70-99) Calcium Level 7.6 mg/dL (8.5-10.1) Magnesium Level 1.3 mg/dL (1.8-2.4) Test 09/24/16 07:40 09/24/16 10:32 Glucose (Fingerstick) 174 mg/dL (70-99) 175 mg/dL (70-99) Microbiology 09/21/16 Urine Culture - Final, Complete 09/21/16 Urine Culture Result 1 (NORBERTO) - Final, Complete Medications Current Medications Sodium Chloride 1,000 ml @ 1,000 mls/hr 1X ONCE IV Last administered on 19:49; Start 09/20/16 at 17:15; Stop 09/20/16 at 18:14; Status DC Sodium Chloride 1,000 ml @ 1,000 mls/hr 1X ONCE IV Last administered on 19:51; Start 09/20/16 at 17:15; Stop 09/20/16 at 18:14; Status DC Vancomycin HCl (Vanco Per Pharmacy) 1 each PRN DAILY PRN MC SEE COMMENTS Last administered on 09/20/16 19:32; Start 09/20/16 at 17:15; Stop 09/21/16 at 07:43 ; Status DC Piperacillin Sod/ Tazobactam Sod (Zosyn Per Pharmacy) 1 each PRN DAILY PRN MC SEE COMMENTS; Start 09/20/16 at 17:15; Stop 09/20/16 at 17:15; Status DC Sodium Chloride 1,000 ml @ 100 mls/hr Q10H IV Last administered on 09/24/16 03:55; Start 09/20/16 at 17:15; Stop 09/24/16 at 08:34; Status DC Hydrocortisone Sodium Succinate (Solu-CORTEF) 100 mg 1X ONCE IV Last administered on 09/20/16 19:50; Start 09/20/16 at 17:15; Stop 09/20/16 at 17:16 ; Status DC Hydrocortisone Sodium Succinate (Solu-CORTEF) 100 mg Q8HRS IV Last administered on 09/22/16 05:30; Start 09/20/16 at 22:00; Stop 09/22/16 at 11:15 ; Status DC Vancomycin HCl 2 gm/Sodium Chloride 500 ml @ 250 mls/hr 1X ONCE IV ; Start at 17:15; Stop 09/20/16 at 19:14; Status Cancel Piperacillin Sod/ Tazobactam Sod 4.5 gm/Sodium Chloride 100 ml @ 200 mls/hr Q6HRS IV ; Start 09/20/16 at 18:00; Stop 09/20/16 at 18:00; Status DC Albuterol/ Ipratropium (Duoneb) 3 ml RTQID NEB Last administered on 09/24/16 08:12; Start 09/20/16 at 17:30 Calcium Carbonate/ Glycine (Tums) 500 mg TID PO Last administered on 09/24/16 09:21; Start 09/20/16 at 21:00 Docusate Sodium (Colace) 100 mg BID PO Last administered on 09/24/16 09:21; Start 09/20/16 at 21:00 Lamotrigine (LaMICtal) 100 mg BID PO ; Start 09/20/16 at 21:00; Stop 09/20/16 at 21:00; Status DC Levothyroxine Sodium (Synthroid) 112 mcg DAILY PO ; Start 09/21/16 at 09:00; Stop 09/21/16 at 09:00; Status DC Ondansetron HCl (Zofran Odt) 4 mg PRN Q4HRS PRN PO NAUSEA/VOMITING; Start 09/20 at 17:30 Phenytoin Sodium (Dilantin) 300 mg HS PO ; Start 09/20/16 at 21:00; Stop at 21:00; Status DC Capsaicin (Zostrix) 1 loulou BID TP Last administered on 09/23/16 21:23; Start at 21:00 Artificial Tears (Artificial Tears) 1 drop BID OU Last administered on 21:24; Start 09/20/16 at 21:00 Insulin Aspart Prota 70%/Aspart 30% (Novolog Mix 70-30) 10 units DAILYBFRSUP SQ Last administered on 09/22/16 17:47; Start 09/20/16 at 17:45; Stop 09/23/16 at 09:31; Status DC Insulin Aspart Prota 70%/Aspart 30% (Novolog Mix 70-30) 22 units DAILYAC SQ Last administered on 09/23/16 09:20; Start 09/21/16 at 07:30; Stop 09/23/16 at 09:31; Status DC Famotidine (Pepcid) 20 mg BID PO ; Start 09/20/16 at 21:00; Stop 09/21/16 at 08: 25; Status DC Heparin Sodium (Porcine) (Heparin Sq) 5,000 unit Q12HR SQ Last administered on 09/24/16 09:46; Start 09/20/16 at 21:00 Levetiracetam (Keppra) 500 mg BID PO ; Start 09/20/16 at 21:00; Stop 09/20/16 at 21:00; Status DC Doxycycline Hyclate 100 mg/ Dextrose 100 ml @ 50 mls/hr Q12HR IV Last administered on 09/24/16 09:15; Start 09/20/16 at 21:00 Vancomycin HCl 1 each 1X ONCE MC ; Start 09/22/16 at 16:00; Stop 09/22/16 at 16 :00; Status DC Levetiracetam 500 mg/Sodium Chloride 100 ml @ 400 mls/hr Q12HR IV Last administered on 09/23/16 21:24; Start 09/20/16 at 21:00 Norepinephrine Bitartrate 250 ml @ 0 mls/hr CONT PRN IV SEE I/O RECORD Last administered on 09/21/16 07:27; Start 09/20/16 at 21:45; Stop 09/22/16 at 16:09 ; Status DC Morphine Sulfate 4 mg PRN Q2HR PRN IV SEVERE PAIN Last administered on 20:59; Start 09/20/16 at 23:15; Stop 09/22/16 at 11:15; Status DC Albumin Human 500 ml @ 125 mls/hr 1X ONCE IV Last administered on 09/20/16 23:47; Start 09/20/16 at 23:30; Stop 09/21/16 at 03:29; Status DC Linezolid 300 ml @ 300 mls/hr Q12HR IV Last administered on 09/22/16 23:04; Start 09/21/16 at 09:00; Stop 09/23/16 at 10:17; Status DC Meropenem 500 mg/ Sodium Chloride 50 ml @ 100 mls/hr DAILY@0800 IV Last administered on 09/23/16 09:05; Start 09/21/16 at 08:00; Stop 09/23/16 at 10:17 ; Status DC Micafungin Sodium 100 mg/Dextrose 100 ml @ 100 mls/hr Q24H IV Last administered on 09/22/16 15:16; Start 09/21/16 at 10:00; Stop 09/23/16 at 10:17 ; Status DC Famotidine (Pepcid) 20 mg DAILY IVP Last administered on 09/24/16 09:21; Start 09/21/16 at 09:00 Levothyroxine Sodium 56 mcg/ Sodium Chloride 5 ml @ 100 mls/hr DAILY IVP Last administered on 09/24/16 10:57; Start 09/21/16 at 09:00 Fosphenytoin Sodium (Cerebyx) 100 mg Q8HRS IV Last administered on 09/24/16 05 :38; Start 09/21/16 at 09:00 Amino Acids/ Glycerin/ Electrolytes 1,000 ml @ 80 mls/hr [id number] IV Last administered on 09/23/16 18:04; Start 09/21/16 at 10:30 Morphine Sulfate 1 mg PRN Q2HR PRN IV SEVERE PAIN Last administered on 17:53; Start 09/22/16 at 11:15 Insulin Aspart (NovoLOG) 0-7 UNITS TIDWMEALS SQ Last administered on 09/24/16 09:46; Start 09/22/16 at 12:00 Dextrose (Dextrose 50%-Water Syringe) 12.5 gm PRN Q15MIN PRN IV SEE COMMENTS; Start 09/22/16 at 11:30 Potassium Chloride 50 ml @ 50 mls/hr Q1H IV Last administered on 09/23/16 14: 10; Start 09/23/16 at 10:00; Stop 09/23/16 at 11:59; Status DC Meropenem 500 mg/ Sodium Chloride 50 ml @ 100 mls/hr Q8HRS IV Last administered on 09/24/16 05:38; Start 09/23/16 at 14:00 Potassium Chloride 50 ml @ 50 mls/hr Q1H IV Last administered on 09/23/16t 17: 43; Start 09/23/16 at 13:30; Stop 09/23/16 at 15:29; Status DC Potassium Chloride 50 ml @ 50 mls/hr 1X ONCE IV ; Start 09/24/16 at 08:45; Stop 09/24/16 at 09:44; Status DC Magnesium Sulfate/ Dextrose 100 ml @ 25 mls/hr 1X ONCE IV ; Start 09/24/16 at 08:45; Stop 09/24/16 at 12:44 Active Scripts Active Reported Keppra (Levetiracetam) 500 Mg Tablet 500 Mg PO BID Lamictal (Lamotrigine) 100 Mg Tablet 1 Tab PO BID Lasix (Furosemide) 20 Mg Tablet 1 Tab PO DAILY Humulin 70-30 Vial (Hum Insulin Nph/Reg Insulin Hm) 100 Unit/1 Ml Vial 22 Unit SQ Q AM Synthroid (Levothyroxine Sodium) 112 Mcg Tablet 1 Tab PO DAILY Humulin 70-30 Vial (Hum Insulin Nph/Reg Insulin Hm) 100 Unit/1 Ml Vial 10 Unit SQ DAILYBFRSUP Dilantin (Phenytoin Sodium Extended) 100 Mg Capsule 300 Mg PO HS Vitals/I & O Vital Sign - Last 24 Hours 09/23/16 09/23/16 09/23/16 09/23/16 15:00 15:10 19:00 19:39 Temp 98.1 99.3 98.1 99.3 Pulse 80 110 Resp 20 20 B/P (MAP) 93/40 (57) 128/77 (94) Pulse Ox 94 95 95 95 O2 Delivery Room Air Room Air Room Air Room Air 09/23/16 09/23/16 09/24/16 09/24/16 20:00 23:00 03:00 07:00 Temp 100.0 99.5 100.2 100.0 99.5 100.2 Pulse 94 97 93 Resp 22 22 19 B/P (MAP) 130/46 (74) 142/48 (79) 147/53 (84) Pulse Ox 97 90 91 O2 Delivery Room Air Room Air Room Air Room Air O2 Flow Rate 3.0 09/24/16 09/24/16 09/24/16 08:00 08:13 11:00 Temp 100.6 100.6 Pulse 91 Resp 19 B/P (MAP) 130/50 (76) Pulse Ox 95 95 O2 Delivery Room Air Room Air Room Air Intake and Output 09/23/16 09/23/16 09/24/16 15:00 23:00 07:00 Intake Total 250 ml Output Total 1400 ml 2625 ml Balance -1400 ml -2375 ml JUAN FERGUSON MD Sep 24, 2016 11:25
--- NOTE | 2016-09-24 12:44 | PDOC ---
Renal-Progress Notes Subjective Notes Notes NONE History of Present Illness Hx of present illness NO CHANGE Vitals Vitals Vital Signs Date Time Temp Pulse Resp B/P (MAP) Pulse Ox O2 Delivery O2 Flow Rate FiO2 09/24/16 11:51 Room Air 09/24/16 11:00 100.6 91 19 130/50 (76) 95 100.6 09/23/16 20:00 3.0 Weight Weight [ ] I.O. Intake and Output Intake and Output 09/24/16 07:00 Intake Total 250 ml Output Total 4025 ml Balance -3775 ml IV Total 250 ml Output Urine Total 3675 ml Stool Total 350 ml Labs Labs Laboratory Tests Test 09/23/16 17:05 09/23/16 20:54 09/24/16 04:40 09/24/16 07:40 Glucose (Fingerstick) 107 mg/dL (70-99) 115 mg/dL (70-99) 174 mg/dL (70-99) White Blood Count 8.6 x10^3/uL (4.0-11.0) Red Blood Count 2.87 x10^6/uL (4.30-5.70) Hemoglobin 8.8 g/dL (13.0-17.5) Hematocrit 25.8 % (39.0-53.0) Mean Corpuscular Volume 90 fL (79-100) Mean Corpuscular Hemoglobin 31 pg (25-35) Mean Corpuscular Hemoglobin Concent 34 g/dL (31-37) Red Cell Distribution Width 13.9 % (11.5-14.5) Platelet Count 198 x10^3/uL (140-400) Neutrophils (%) (Auto) 66 % (31-73) Lymphocytes (%) (Auto) 24 % (24-48) Monocytes (%) (Auto) 9 % (0-9) Eosinophils (%) (Auto) 0 % (0-3) Basophils (%) (Auto) 0 % (0-3) Neutrophils # (Auto) 5.7 x10^3uL (1.8-7.7) Lymphocytes # (Auto) 2.1 x10^3/uL (1.0-4.8) Monocytes # (Auto) 0.8 x10^3/uL (0.0-1.1) Eosinophils # (Auto) 0.0 x10^3/uL (0.0-0.7) Basophils # (Auto) 0.0 x10^3/uL (0.0-0.2) Sodium Level 144 mmol/L (136-145) Potassium Level 3.3 mmol/L (3.5-5.1) Chloride Level 112 mmol/L (98-107) Carbon Dioxide Level 24 mmol/L (21-32) Anion Gap 8 (6-14) Blood Urea Nitrogen 46 mg/dL (8-26) Creatinine 1.2 mg/dL (0.7-1.3) Estimated GFR (Cockcroft-Gault) 58.0 Glucose Level 151 mg/dL (70-99) Calcium Level 7.6 mg/dL (8.5-10.1) Magnesium Level 1.3 mg/dL (1.8-2.4) Test 09/24/16 10:32 Glucose (Fingerstick) 175 mg/dL (70-99) Micro Micro Microbiology 09/21/16 Urine Culture - Final, Complete 09/21/16 Urine Culture Result 1 (NORBERTO) - Final, Complete Review of Systems Constitutional: yes: no symptom reported Physical Exam General Appearance: no apparent distress Respiratory: bilateral CTA Heart: S1S2, RRR Abdomen: soft, bowel sounds present Genitourinary: bladder flat Neurology: alert Assessment Assessment IMP KINZA-RESOLVING WITH CR DOWN TO 1.2 HYPOKALEMIA-BETTER LOW MAG SEPSIS UTI PLAN STOP PPN REPLACE MAG AND K WILL SIGN OFF PLEASE CALL IF NEEDED RANDY AWAN MD Sep 24, 2016 12:44
[2016-09-24] MEDS ORDERED: MAGNESIUM SULFATE 2GM 50 ML IV ONE (12:45)
[2016-09-24] MEDS ORDERED: POTASSIUM CHLORIDE 20 MEQ TABLET.ER. PO ONE (12:45)
--- NOTE | 2016-09-24 12:53 | PDOC ---
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 clean Labs Lab Laboratory Tests Test 09/23/16 17:05 09/23/16 20:54 09/24/16 04:40 09/24/16 07:40 Glucose (Fingerstick) 107 mg/dL (70-99) 115 mg/dL (70-99) 174 mg/dL (70-99) White Blood Count 8.6 x10^3/uL (4.0-11.0) Red Blood Count 2.87 x10^6/uL (4.30-5.70) Hemoglobin 8.8 g/dL (13.0-17.5) Hematocrit 25.8 % (39.0-53.0) Mean Corpuscular Volume 90 fL (79-100) Mean Corpuscular Hemoglobin 31 pg (25-35) Mean Corpuscular Hemoglobin Concent 34 g/dL (31-37) Red Cell Distribution Width 13.9 % (11.5-14.5) Platelet Count 198 x10^3/uL (140-400) Neutrophils (%) (Auto) 66 % (31-73) Lymphocytes (%) (Auto) 24 % (24-48) Monocytes (%) (Auto) 9 % (0-9) Eosinophils (%) (Auto) 0 % (0-3) Basophils (%) (Auto) 0 % (0-3) Neutrophils # (Auto) 5.7 x10^3uL (1.8-7.7) Lymphocytes # (Auto) 2.1 x10^3/uL (1.0-4.8) Monocytes # (Auto) 0.8 x10^3/uL (0.0-1.1) Eosinophils # (Auto) 0.0 x10^3/uL (0.0-0.7) Basophils # (Auto) 0.0 x10^3/uL (0.0-0.2) Sodium Level 144 mmol/L (136-145) Potassium Level 3.3 mmol/L (3.5-5.1) Chloride Level 112 mmol/L (98-107) Carbon Dioxide Level 24 mmol/L (21-32) Anion Gap 8 (6-14) Blood Urea Nitrogen 46 mg/dL (8-26) Creatinine 1.2 mg/dL (0.7-1.3) Estimated GFR (Cockcroft-Gault) 58.0 Glucose Level 151 mg/dL (70-99) Calcium Level 7.6 mg/dL (8.5-10.1) Magnesium Level 1.3 mg/dL (1.8-2.4) Test 09/24/16 10:32 Glucose (Fingerstick) 175 mg/dL (70-99) Micro URINE CULTURE Final No growth in 48 hours. Objective Assessment Fever Encephalopathy Leukocytosis - better Sepsis - off pressors Levophed -Received Vanc/Rocephin/Levoflox prior to transfer KINZA - better ? UTI - POA Multiple abx allergies Seizures - on Keppra Plan Plan of Care Cont Doxy and Meropenem Supportive care Attending Co-Sign The patient was seen and interviewed as well as examined at the bedside. The chart was reviewed. The case was discussed. Agree with the plan of care. LAVON SOUSA APRN Sep 24, 2016 12:53 JAREK EUGENE MD Sep 24, 2016 15:08
--- NOTE | 2016-09-24 13:25 | PDOC ---
PROGRESS NOTES Chief Complaint Chief Complaint AMS Septic shock ASSESSMENT AND PLAN: 1. Severe Sepsis with shock: weaned off pressors, 2. UTI possible: culture neg; on empiric merrem, doxy, dced zyvox, micafungin - ID service following; Abx as per ID 3. AMS with baseline dementia: difficult to eval, as baseline is demented. per guards, he is at baseline now 4. Leukocytosis: reactive 2/2 infect 5. KINZA on CKD3: POA, continues to improve. baseline creat 1.1 6. Anemia: chronic, 2/2 inflammation and CKD. significantly increased H/H today w/o transfusion: suspect lab error - rpt lab 7. Epilepsy: no active issues. on keppra, dilantion 8. Dysphagia diet 9. Nutrition: on PPN for now. 10. Hypoalbuminemia: inflammation, ?malnutrition. 11. DM2 dc NS. renal dced PPN today. replete K. dc insulin, SSI only. PAT consulted, DNR. EEG done, pending. cont iv abx, fu with ID dc soon if afebrile. History of Present Illness History of Present Illness very confused, but as per [facility], this is his baseline, aaox1-2, sometimes language abuse was in [facility] before, but NOT DNR sister TRINA eventually came last night , DNR now on dysphagia diet now, low po intake still fever, low K, mag Vitals Vitals Vital Signs Date Time Temp Pulse Resp B/P (MAP) Pulse Ox O2 Delivery O2 Flow Rate FiO2 09/24/16 11:51 Room Air 09/24/16 11:00 100.6 91 19 130/50 (76) 95 100.6 09/23/16 20:00 3.0 Physical Exam General: Alert, No acute distress, Other (demented, perseveration) Heart: Regular rate Lungs: Wheezing (resolved) Abdomen: Normal bowel sounds, Soft, No tenderness Extremities: No clubbing Skin: No rashes Labs LABS Laboratory Tests Test 09/23/16 17:05 09/23/16 20:54 09/24/16 04:40 09/24/16 07:40 Glucose (Fingerstick) 107 mg/dL (70-99) 115 mg/dL (70-99) 174 mg/dL (70-99) White Blood Count 8.6 x10^3/uL (4.0-11.0) Red Blood Count 2.87 x10^6/uL (4.30-5.70) Hemoglobin 8.8 g/dL (13.0-17.5) Hematocrit 25.8 % (39.0-53.0) Mean Corpuscular Volume 90 fL (79-100) Mean Corpuscular Hemoglobin 31 pg (25-35) Mean Corpuscular Hemoglobin Concent 34 g/dL (31-37) Red Cell Distribution Width 13.9 % (11.5-14.5) Platelet Count 198 x10^3/uL (140-400) Neutrophils (%) (Auto) 66 % (31-73) Lymphocytes (%) (Auto) 24 % (24-48) Monocytes (%) (Auto) 9 % (0-9) Eosinophils (%) (Auto) 0 % (0-3) Basophils (%) (Auto) 0 % (0-3) Neutrophils # (Auto) 5.7 x10^3uL (1.8-7.7) Lymphocytes # (Auto) 2.1 x10^3/uL (1.0-4.8) Monocytes # (Auto) 0.8 x10^3/uL (0.0-1.1) Eosinophils # (Auto) 0.0 x10^3/uL (0.0-0.7) Basophils # (Auto) 0.0 x10^3/uL (0.0-0.2) Sodium Level 144 mmol/L (136-145) Potassium Level 3.3 mmol/L (3.5-5.1) Chloride Level 112 mmol/L (98-107) Carbon Dioxide Level 24 mmol/L (21-32) Anion Gap 8 (6-14) Blood Urea Nitrogen 46 mg/dL (8-26) Creatinine 1.2 mg/dL (0.7-1.3) Estimated GFR (Cockcroft-Gault) 58.0 Glucose Level 151 mg/dL (70-99) Calcium Level 7.6 mg/dL (8.5-10.1) Magnesium Level 1.3 mg/dL (1.8-2.4) Test 09/24/16 10:32 Glucose (Fingerstick) 175 mg/dL (70-99) Review of Systems Review of Systems no chills, N/V, sob ,chest pain Comment Review of Relevant I have reviewed the following items juliocesar (where applicable) has been applied. Labs Laboratory Tests Test 09/22/16 13:21 09/22/16 16:50 09/22/16 21:08 09/23/16 07:00 O2 Saturation 93 % (92-99) Arterial Blood pH 7.48 (7.35-7.45) Arterial Blood pCO2 at Patient Temp 29 mmHg (35-46) Arterial Blood pO2 at Patient Temp 67 mmHg (65-108) Arterial Blood HCO3 21 mmol/L (21-28) Arterial Blood Base Excess -2 mmol/L (-3-3) FiO2 21 Glucose (Fingerstick) 198 mg/dL (70-99) 91 mg/dL (70-99) White Blood Count 8.4 x10^3/uL (4.0-11.0) Red Blood Count 2.71 x10^6/uL (4.30-5.70) Hemoglobin 8.3 g/dL (13.0-17.5) Hematocrit 24.3 % (39.0-53.0) Mean Corpuscular Volume 90 fL (79-100) Mean Corpuscular Hemoglobin 31 pg (25-35) Mean Corpuscular Hemoglobin Concent 34 g/dL (31-37) Red Cell Distribution Width 13.5 % (11.5-14.5) Platelet Count 206 x10^3/uL (140-400) Neutrophils (%) (Auto) 70 % (31-73) Lymphocytes (%) (Auto) 22 % (24-48) Monocytes (%) (Auto) 7 % (0-9) Eosinophils (%) (Auto) 0 % (0-3) Basophils (%) (Auto) 0 % (0-3) Neutrophils # (Auto) 5.9 x10^3uL (1.8-7.7) Lymphocytes # (Auto) 1.9 x10^3/uL (1.0-4.8) Monocytes # (Auto) 0.6 x10^3/uL (0.0-1.1) Eosinophils # (Auto) 0.0 x10^3/uL (0.0-0.7) Basophils # (Auto) 0.0 x10^3/uL (0.0-0.2) Sodium Level 143 mmol/L (136-145) Potassium Level 2.8 mmol/L (3.5-5.1) Chloride Level 108 mmol/L (98-107) Carbon Dioxide Level 26 mmol/L (21-32) Anion Gap 9 (6-14) Blood Urea Nitrogen 63 mg/dL (8-26) Creatinine 1.7 mg/dL (0.7-1.3) Estimated GFR (Cockcroft-Gault) 38.8 BUN/Creatinine Ratio 37 (6-20) Glucose Level 108 mg/dL (70-99) Calcium Level 7.3 mg/dL (8.5-10.1) Total Bilirubin 0.3 mg/dL (0.2-1.0) Aspartate Amino Transf (AST/SGOT) 24 U/L (15-37) Alanine Aminotransferase (ALT/SGPT) 14 U/L (16-63) Alkaline Phosphatase 72 U/L (46-116) Total Protein 4.9 g/dL (6.4-8.2) Albumin 1.7 g/dL (3.4-5.0) Albumin/Globulin Ratio 0.5 (1.0-1.7) Test 09/23/16 07:48 09/23/16 11:44 09/23/16 17:05 09/23/16 20:54 Glucose (Fingerstick) 128 mg/dL (70-99) 99 mg/dL (70-99) 107 mg/dL (70-99) 115 mg/dL (70-99) Test 09/24/16 04:40 09/24/16 07:40 09/24/16 10:32 White Blood Count 8.6 x10^3/uL (4.0-11.0) Red Blood Count 2.87 x10^6/uL (4.30-5.70) Hemoglobin 8.8 g/dL (13.0-17.5) Hematocrit 25.8 % (39.0-53.0) Mean Corpuscular Volume 90 fL (79-100) Mean Corpuscular Hemoglobin 31 pg (25-35) Mean Corpuscular Hemoglobin Concent 34 g/dL (31-37) Red Cell Distribution Width 13.9 % (11.5-14.5) Platelet Count 198 x10^3/uL (140-400) Neutrophils (%) (Auto) 66 % (31-73) Lymphocytes (%) (Auto) 24 % (24-48) Monocytes (%) (Auto) 9 % (0-9) Eosinophils (%) (Auto) 0 % (0-3) Basophils (%) (Auto) 0 % (0-3) Neutrophils # (Auto) 5.7 x10^3uL (1.8-7.7) Lymphocytes # (Auto) 2.1 x10^3/uL (1.0-4.8) Monocytes # (Auto) 0.8 x10^3/uL (0.0-1.1) Eosinophils # (Auto) 0.0 x10^3/uL (0.0-0.7) Basophils # (Auto) 0.0 x10^3/uL (0.0-0.2) Sodium Level 144 mmol/L (136-145) Potassium Level 3.3 mmol/L (3.5-5.1) Chloride Level 112 mmol/L (98-107) Carbon Dioxide Level 24 mmol/L (21-32) Anion Gap 8 (6-14) Blood Urea Nitrogen 46 mg/dL (8-26) Creatinine 1.2 mg/dL (0.7-1.3) Estimated GFR (Cockcroft-Gault) 58.0 Glucose Level 151 mg/dL (70-99) Calcium Level 7.6 mg/dL (8.5-10.1) Magnesium Level 1.3 mg/dL (1.8-2.4) Glucose (Fingerstick) 174 mg/dL (70-99) 175 mg/dL (70-99) Laboratory Tests Test 09/23/16 17:05 09/23/16 20:54 09/24/16 04:40 09/24/16 07:40 Glucose (Fingerstick) 107 mg/dL (70-99) 115 mg/dL (70-99) 174 mg/dL (70-99) White Blood Count 8.6 x10^3/uL (4.0-11.0) Red Blood Count 2.87 x10^6/uL (4.30-5.70) Hemoglobin 8.8 g/dL (13.0-17.5) Hematocrit 25.8 % (39.0-53.0) Mean Corpuscular Volume 90 fL (79-100) Mean Corpuscular Hemoglobin 31 pg (25-35) Mean Corpuscular Hemoglobin Concent 34 g/dL (31-37) Red Cell Distribution Width 13.9 % (11.5-14.5) Platelet Count 198 x10^3/uL (140-400) Neutrophils (%) (Auto) 66 % (31-73) Lymphocytes (%) (Auto) 24 % (24-48) Monocytes (%) (Auto) 9 % (0-9) Eosinophils (%) (Auto) 0 % (0-3) Basophils (%) (Auto) 0 % (0-3) Neutrophils # (Auto) 5.7 x10^3uL (1.8-7.7) Lymphocytes # (Auto) 2.1 x10^3/uL (1.0-4.8) Monocytes # (Auto) 0.8 x10^3/uL (0.0-1.1) Eosinophils # (Auto) 0.0 x10^3/uL (0.0-0.7) Basophils # (Auto) 0.0 x10^3/uL (0.0-0.2) Sodium Level 144 mmol/L (136-145) Potassium Level 3.3 mmol/L (3.5-5.1) Chloride Level 112 mmol/L (98-107) Carbon Dioxide Level 24 mmol/L (21-32) Anion Gap 8 (6-14) Blood Urea Nitrogen 46 mg/dL (8-26) Creatinine 1.2 mg/dL (0.7-1.3) Estimated GFR (Cockcroft-Gault) 58.0 Glucose Level 151 mg/dL (70-99) Calcium Level 7.6 mg/dL (8.5-10.1) Magnesium Level 1.3 mg/dL (1.8-2.4) Test 09/24/16 10:32 Glucose (Fingerstick) 175 mg/dL (70-99) Microbiology 09/21/16 Urine Culture - Final, Complete 09/21/16 Urine Culture Result 1 (NORBERTO) - Final, Complete Medications Current Medications Sodium Chloride 1,000 ml @ 1,000 mls/hr 1X ONCE IV Last administered on t 19:49; Start 09/20/16 at 17:15; Stop 09/20/16 at 18:14; Status DC Sodium Chloride 1,000 ml @ 1,000 mls/hr 1X ONCE IV Last administered on 19:51; Start 09/20/16 at 17:15; Stop 09/20/16 at 18:14; Status DC Vancomycin HCl (Vanco Per Pharmacy) 1 each PRN DAILY PRN MC SEE COMMENTS Last administered on 09/20/16 19:32; Start 09/20/16 at 17:15; Stop 09/21/16 at 07:43 ; Status DC Piperacillin Sod/ Tazobactam Sod (Zosyn Per Pharmacy) 1 each PRN DAILY PRN MC SEE COMMENTS; Start 09/20/16 at 17:15; Stop 09/20/16 at 17:15; Status DC Sodium Chloride 1,000 ml @ 100 mls/hr Q10H IV Last administered on 09/24/16 03:55; Start 09/20/16 at 17:15; Stop 09/24/16 at 08:34; Status DC Hydrocortisone Sodium Succinate (Solu-CORTEF) 100 mg 1X ONCE IV Last administered on 09/20/16 19:50; Start 09/20/16 at 17:15; Stop 09/20/16 at 17:16 ; Status DC Hydrocortisone Sodium Succinate (Solu-CORTEF) 100 mg Q8HRS IV Last administered on 09/22/16 05:30; Start 09/20/16 at 22:00; Stop 09/22/16 at 11:15 ; Status DC Vancomycin HCl 2 gm/Sodium Chloride 500 ml @ 250 mls/hr 1X ONCE IV ; Start at 17:15; Stop 09/20/16 at 19:14; Status Cancel Piperacillin Sod/ Tazobactam Sod 4.5 gm/Sodium Chloride 100 ml @ 200 mls/hr Q6HRS IV ; Start 09/20/16 at 18:00; Stop 09/20/16 at 18:00; Status DC Albuterol/ Ipratropium (Duoneb) 3 ml RTQID NEB Last administered on 09/24/16 11:45; Start 09/20/16 at 17:30 Calcium Carbonate/ Glycine (Tums) 500 mg TID PO Last administered on 09/24/16 09:21; Start 09/20/16 at 21:00 Docusate Sodium (Colace) 100 mg BID PO Last administered on 09/24/16 09:21; Start 09/20/16 at 21:00 Lamotrigine (LaMICtal) 100 mg BID PO ; Start 09/20/16 at 21:00; Stop 09/20/16 at 21:00; Status DC Levothyroxine Sodium (Synthroid) 112 mcg DAILY PO ; Start 09/21/16 at 09:00; Stop 09/21/16 at 09:00; Status DC Ondansetron HCl (Zofran Odt) 4 mg PRN Q4HRS PRN PO NAUSEA/VOMITING; Start 09/20 at 17:30 Phenytoin Sodium (Dilantin) 300 mg HS PO ; Start 09/20/16 at 21:00; Stop at 21:00; Status DC Capsaicin (Zostrix) 1 loulou BID TP Last administered on 09/23/16 21:23; Start at 21:00 Artificial Tears (Artificial Tears) 1 drop BID OU Last administered on 21:24; Start 09/20/16 at 21:00 Insulin Aspart Prota 70%/Aspart 30% (Novolog Mix 70-30) 10 units DAILYBFRSUP SQ Last administered on 09/22/16 17:47; Start 09/20/16 at 17:45; Stop 09/23/16 at 09:31; Status DC Insulin Aspart Prota 70%/Aspart 30% (Novolog Mix 70-30) 22 units DAILYAC SQ Last administered on 09/23/16 09:20; Start 09/21/16 at 07:30; Stop 09/23/16 at 09:31; Status DC Famotidine (Pepcid) 20 mg BID PO ; Start 09/20/16 at 21:00; Stop 09/21/16 at 08: 25; Status DC Heparin Sodium (Porcine) (Heparin Sq) 5,000 unit Q12HR SQ Last administered on 09/24/16 09:46; Start 09/20/16 at 21:00 Levetiracetam (Keppra) 500 mg BID PO ; Start 09/20/16 at 21:00; Stop 09/20/16 at 21:00; Status DC Doxycycline Hyclate 100 mg/ Dextrose 100 ml @ 50 mls/hr Q12HR IV Last administered on 09/24/16 09:15; Start 09/20/16 at 21:00 Vancomycin HCl 1 each 1X ONCE MC ; Start 09/22/16 at 16:00; Stop 09/22/16 at 16 :00; Status DC Levetiracetam 500 mg/Sodium Chloride 100 ml @ 400 mls/hr Q12HR IV Last administered on 09/23/16 21:24; Start 09/20/16 at 21:00 Norepinephrine Bitartrate 250 ml @ 0 mls/hr CONT PRN IV SEE I/O RECORD Last administered on 09/21/16 07:27; Start 09/20/16 at 21:45; Stop 09/22/16 at 16:09 ; Status DC Morphine Sulfate 4 mg PRN Q2HR PRN IV SEVERE PAIN Last administered on 20:59; Start 09/20/16 at 23:15; Stop 09/22/16 at 11:15; Status DC Albumin Human 500 ml @ 125 mls/hr 1X ONCE IV Last administered on 09/20/16 23:47; Start 09/20/16 at 23:30; Stop 09/21/16 at 03:29; Status DC Linezolid 300 ml @ 300 mls/hr Q12HR IV Last administered on 09/22/16 23:04; Start 09/21/16 at 09:00; Stop 09/23/16 at 10:17; Status DC Meropenem 500 mg/ Sodium Chloride 50 ml @ 100 mls/hr DAILY@0800 IV Last administered on 09/23/16 09:05; Start 09/21/16 at 08:00; Stop 09/23/16 at 10:17 ; Status DC Micafungin Sodium 100 mg/Dextrose 100 ml @ 100 mls/hr Q24H IV Last administered on 09/22/16 15:16; Start 09/21/16 at 10:00; Stop 09/23/16 at 10:17 ; Status DC Famotidine (Pepcid) 20 mg DAILY IVP Last administered on 09/24/16 09:21; Start 09/21/16 at 09:00 Levothyroxine Sodium 56 mcg/ Sodium Chloride 5 ml @ 100 mls/hr DAILY IVP Last administered on 09/24/16 10:57; Start 09/21/16 at 09:00 Fosphenytoin Sodium (Cerebyx) 100 mg Q8HRS IV Last administered on 09/24/16 05 :38; Start 09/21/16 at 09:00 Amino Acids/ Glycerin/ Electrolytes 1,000 ml @ 80 mls/hr [id number] IV Last administered on 09/23/16 18:04; Start 09/21/16 at 10:30; Stop 09/24/16 at 12:45 ; Status DC Morphine Sulfate 1 mg PRN Q2HR PRN IV SEVERE PAIN Last administered on 17:53; Start 09/22/16 at 11:15 Insulin Aspart (NovoLOG) 0-7 UNITS TIDWMEALS SQ Last administered on 09/24/16 09:46; Start 09/22/16 at 12:00 Dextrose (Dextrose 50%-Water Syringe) 12.5 gm PRN Q15MIN PRN IV SEE COMMENTS; Start 09/22/16 at 11:30 Potassium Chloride 50 ml @ 50 mls/hr Q1H IV Last administered on 09/23/16 14: 10; Start 09/23/16 at 10:00; Stop 09/23/16 at 11:59; Status DC Meropenem 500 mg/ Sodium Chloride 50 ml @ 100 mls/hr Q8HRS IV Last administered on 09/24/16 05:38; Start 09/23/16 at 14:00 Potassium Chloride 50 ml @ 50 mls/hr Q1H IV Last administered on 09/23/16 17: 43; Start 09/23/16 at 13:30; Stop 09/23/16 at 15:29; Status DC Potassium Chloride 50 ml @ 50 mls/hr 1X ONCE IV Last administered on 12:29; Start 09/24/16 at 08:45; Stop 09/24/16 at 09:44; Status DC Magnesium Sulfate/ Dextrose 100 ml @ 25 mls/hr 1X ONCE IV Last administered on 09/24/16 11:36; Start 09/24/16 at 08:45; Stop 09/24/16 at 12:44; Status DC Potassium Chloride (Klor-Con) 20 meq 1X ONCE PO ; Start 09/24/16 at 12:45; Stop 09/24/16 at 12:48; Status DC Magnesium Sulfate/ Dextrose 50 ml @ 25 mls/hr 1X ONCE IV ; Start 09/24/16 at 12 :45; Stop 09/24/16 at 14:44 Active Scripts Active Reported Keppra (Levetiracetam) 500 Mg Tablet 500 Mg PO BID Lamictal (Lamotrigine) 100 Mg Tablet 1 Tab PO BID Lasix (Furosemide) 20 Mg Tablet 1 Tab PO DAILY Humulin 70-30 Vial (Hum Insulin Nph/Reg Insulin Hm) 100 Unit/1 Ml Vial 22 Unit SQ Q AM Synthroid (Levothyroxine Sodium) 112 Mcg Tablet 1 Tab PO DAILY Humulin 70-30 Vial (Hum Insulin Nph/Reg Insulin Hm) 100 Unit/1 Ml Vial 10 Unit SQ DAILYBFRSUP Dilantin (Phenytoin Sodium Extended) 100 Mg Capsule 300 Mg PO HS Vitals/I & O Vital Sign - Last 24 Hours 09/23/16 09/23/16 09/23/16 09/23/16 15:00 15:10 19:00 19:39 Temp 98.1 99.3 98.1 99.3 Pulse 80 110 Resp 20 20 B/P (MAP) 93/40 (57) 128/77 (94) Pulse Ox 94 95 95 95 O2 Delivery Room Air Room Air Room Air Room Air 09/23/16 09/23/16 09/24/16 09/24/16 20:00 23:00 03:00 07:00 Temp 100.0 99.5 100.2 100.0 99.5 100.2 Pulse 94 97 93 Resp 22 22 19 B/P (MAP) 130/46 (74) 142/48 (79) 147/53 (84) Pulse Ox 97 90 91 O2 Delivery Room Air Room Air Room Air Room Air O2 Flow Rate 3.0 09/24/16 09/24/16 09/24/16 09/24/16 08:00 08:13 11:00 11:51 Temp 100.6 100.6 Pulse 91 Resp 19 B/P (MAP) 130/50 (76) Pulse Ox 95 95 O2 Delivery Room Air Room Air Room Air Room Air Intake and Output 09/23/16 09/23/16 09/24/16 15:00 23:00 07:00 Intake Total 250 ml Output Total 1400 ml 2625 ml Balance -1400 ml -2375 ml ELANA MONTILLA MD Sep 24, 2016 13:25
[2016-09-24 15:00] VITALS: BP_SYST 120; BP_SYST 135; BP_DIAS 39; BP_DIAS 48
[2016-09-24 19:00] VITALS: BP 108/33
[2016-09-24 23:00] VITALS: BP 132/41
[2016-09-25] MEDS: MEROPENEM 500 MG in IV NORMAL SALINE 50ML 50 ML IV SCH ×4 (00:28→21:03)
[2016-09-25 03:00] VITALS: BP 112/41
[2016-09-25] MEDS ORDERED: ACETAMINOPHEN 325 MG TABLET. PO PRN (03:15)
[2016-09-25] MEDS: FOSPHENYTOIN 100 MG/2 ML VIAL. IV SCH ×3 (06:01→22:19)
[2016-09-25 07:00] VITALS: BP 114/53
[2016-09-25] MEDS: IPRATRPIUM/ALBUTEROL 0.5/2.5MG 3 ML NEBU. NEB SCH ×4 (07:20→19:13)
[2016-09-25 07:46] LABS: BASO % 1 % (0-3); EOS % 2 % (0-3); HEMATOCRIT 26.7 % (39.0-53.0); HEMOGLOBIN 9.1 g/dL (13.0-17.5); LYMPH % 25 % (24-48); MEAN CORPUSCULAR HEMOGLOBIN 31 pg (25-35); MEAN CORPUSCULAR HGB CONC 34 g/dL (31-37); MEAN CORPUSCULAR VOLUME 90 fL (79-100); MONO % 10 % (0-9); NEUT % 63 % (31-73); PLATELET COUNT 190 x10^3/uL (140-400); RED BLOOD COUNT 2.98 x10^6/uL (4.30-5.70); RED CELL DISTRIBUTION WIDTH 14.9 % (11.5-14.5); WHITE BLOOD COUNT 7.9 x10^3/uL (4.0-11.0)
[2016-09-25] MEDS: INSULIN ASPART 300 UNITS/3 ML INSULN.PEN SQ SCH ×3 (08:00→16:31)
[2016-09-25 08:13] LABS: CALCIUM 7.6 mg/dL (8.5-10.1); CREATININE 1.1 mg/dL (0.7-1.3); GFR 64.1; MAGNESIUM 1.8 mg/dL (1.8-2.4); POTASSIUM 3.2 mmol/L (3.5-5.1)
--- NOTE | 2016-09-25 08:25 | RAD ---
Portable chest, 09/25/2016: History: Fever Comparison is made to a study from 09/20/2016. A right PICC extends into the superior vena cava. The heart size and pulmonary vascularity are normal. There is only mild minimal residual linear atelectasis in the right base and left perihilar region. No consolidating infiltrate is seen. There is no evidence of pleural fluid. IMPRESSION: 1. The right PICC extends into the superior vena cava. 2. Minimal residual right basilar and left perihilar linear atelectasis.
[2016-09-25] MEDS: DOXYCYCLINE HYCLATE 100 MG in IV DEXTROSE 5% 100 ML IV SCH ×2 (08:35→21:04)
[2016-09-25] MEDS: FAMOTIDINE 20 MG/2 ML VIAL IVP SCH (08:36)
[2016-09-25] MEDS: CALCIUM CARBONATE 500 MG TAB.CHEW PO SCH ×3 (08:36→21:03)
[2016-09-25] MEDS: POLYVINYL ALCOHOL 1.4% OPHTH SOLUTION 15ML BOTTLE. OU SCH ×2 (08:36→21:03)
[2016-09-25] MEDS: DOCUSATE SODIUM 100 MG CAPSULE. PO SCH ×2 (08:36→21:00)
[2016-09-25] MEDS: HEPARIN PF for SUB-Q USE 5,000 UNIT/0.5 ML VIAL. SQ SCH ×2 (08:40→21:22)
[2016-09-25] MEDS: CAPSAICIN 0.025% TOPICAL CREAM 60GM TUBE. TP SCH ×2 (09:00→21:02)
[2016-09-25] MEDS: POTASSIUM CL 20MEQ-0.45% NACL 1,000 ML IV SCH (10:45)
[2016-09-25 11:00] VITALS: BP 114/50
[2016-09-25] MEDS: NORMAL SALINE IVP SCH (11:56)
[2016-09-25] MEDS: LEVOTHYROXINE SODIUM IVP SCH (11:56)
--- NOTE | 2016-09-25 13:05 | PDOC ---
PROGRESS NOTES Chief Complaint Chief Complaint AMS Septic shock ASSESSMENT AND PLAN: 1. Severe Sepsis with shock: weaned off pressors, 2. UTI possible: culture neg; on empiric merrem, doxy, dced zyvox, micafungin - ID service following; Abx as per ID 3. AMS with baseline dementia: difficult to eval, as baseline is demented. per guards, he is at baseline now 4. Leukocytosis: reactive 2/2 infect 5. KINZA on CKD3: POA, continues to improve. baseline creat 1.1 6. Anemia: chronic, 2/2 inflammation and CKD. significantly increased H/H today w/o transfusion: suspect lab error - rpt lab 7. Epilepsy: no active issues. on keppra, dilantion 8. Dysphagia diet 9. Nutrition: on PPN for now. 10. Hypoalbuminemia: inflammation, ?malnutrition. 11. DM2 12. hypernatremia dc NS. renal dced PPN. add 1/2 Ns +K at 60cc/h replete K. dc insulin, SSI only. PAT consulted, DNR. EEG done, pending. cont iv abx, fu with ID dc soon if afebrile. hoyos cx again on 09/24 night given high fever History of Present Illness History of Present Illness moderate confused, but as per skilled nursing guards, this is his baseline, aaox1-2, sometimes language abuse was in skilled nursing hospice before, but NOT DNR sister TRINA eventually came last night , DNR now on dysphagia diet now, low po intake high fever overnight low K, mag high Na Vitals Vitals Vital Signs Date Time Temp Pulse Resp B/P (MAP) Pulse Ox O2 Delivery O2 Flow Rate FiO2 09/25/16 11:02 Room Air 09/25/16 11:00 97.8 86 19 114/50 (71) 95 97.8 09/25/16 08:00 3.0 Physical Exam Physical Exam has PICC line General: Alert, No acute distress, Other (demented, perseveration) Heart: Regular rate Lungs: Wheezing (resolved) Abdomen: Normal bowel sounds, Soft, No tenderness Extremities: No clubbing Skin: No rashes Labs LABS Laboratory Tests Test 09/24/16 17:12 09/24/16 20:56 09/25/16 07:21 09/25/16 07:30 Glucose (Fingerstick) 210 mg/dL (70-99) 169 mg/dL (70-99) 137 mg/dL (70-99) White Blood Count 7.9 x10^3/uL (4.0-11.0) Red Blood Count 2.98 x10^6/uL (4.30-5.70) Hemoglobin 9.1 g/dL (13.0-17.5) Hematocrit 26.7 % (39.0-53.0) Mean Corpuscular Volume 90 fL (79-100) Mean Corpuscular Hemoglobin 31 pg (25-35) Mean Corpuscular Hemoglobin Concent 34 g/dL (31-37) Red Cell Distribution Width 14.9 % (11.5-14.5) Platelet Count 190 x10^3/uL (140-400) Neutrophils (%) (Auto) 63 % (31-73) Lymphocytes (%) (Auto) 25 % (24-48) Monocytes (%) (Auto) 10 % (0-9) Eosinophils (%) (Auto) 2 % (0-3) Basophils (%) (Auto) 1 % (0-3) Neutrophils # (Auto) 5.0 x10^3uL (1.8-7.7) Lymphocytes # (Auto) 2.0 x10^3/uL (1.0-4.8) Monocytes # (Auto) 0.8 x10^3/uL (0.0-1.1) Eosinophils # (Auto) 0.2 x10^3/uL (0.0-0.7) Basophils # (Auto) 0.0 x10^3/uL (0.0-0.2) Sodium Level 149 mmol/L (136-145) Potassium Level 3.2 mmol/L (3.5-5.1) Chloride Level 115 mmol/L (98-107) Carbon Dioxide Level 26 mmol/L (21-32) Anion Gap 8 (6-14) Blood Urea Nitrogen 31 mg/dL (8-26) Creatinine 1.1 mg/dL (0.7-1.3) Estimated GFR (Cockcroft-Gault) 64.1 Glucose Level 140 mg/dL (70-99) Calcium Level 7.6 mg/dL (8.5-10.1) Magnesium Level 1.8 mg/dL (1.8-2.4) Test 09/25/16 10:11 Glucose (Fingerstick) 171 mg/dL (70-99) Review of Systems Review of Systems no , chills, sob or chest pain Comment Review of Relevant I have reviewed the following items juliocesar (where applicable) has been applied. Labs Laboratory Tests Test 09/23/16 17:05 09/23/16 20:54 09/24/16 04:40 09/24/16 07:40 Glucose (Fingerstick) 107 mg/dL (70-99) 115 mg/dL (70-99) 174 mg/dL (70-99) White Blood Count 8.6 x10^3/uL (4.0-11.0) Red Blood Count 2.87 x10^6/uL (4.30-5.70) Hemoglobin 8.8 g/dL (13.0-17.5) Hematocrit 25.8 % (39.0-53.0) Mean Corpuscular Volume 90 fL (79-100) Mean Corpuscular Hemoglobin 31 pg (25-35) Mean Corpuscular Hemoglobin Concent 34 g/dL (31-37) Red Cell Distribution Width 13.9 % (11.5-14.5) Platelet Count 198 x10^3/uL (140-400) Neutrophils (%) (Auto) 66 % (31-73) Lymphocytes (%) (Auto) 24 % (24-48) Monocytes (%) (Auto) 9 % (0-9) Eosinophils (%) (Auto) 0 % (0-3) Basophils (%) (Auto) 0 % (0-3) Neutrophils # (Auto) 5.7 x10^3uL (1.8-7.7) Lymphocytes # (Auto) 2.1 x10^3/uL (1.0-4.8) Monocytes # (Auto) 0.8 x10^3/uL (0.0-1.1) Eosinophils # (Auto) 0.0 x10^3/uL (0.0-0.7) Basophils # (Auto) 0.0 x10^3/uL (0.0-0.2) Sodium Level 144 mmol/L (136-145) Potassium Level 3.3 mmol/L (3.5-5.1) Chloride Level 112 mmol/L (98-107) Carbon Dioxide Level 24 mmol/L (21-32) Anion Gap 8 (6-14) Blood Urea Nitrogen 46 mg/dL (8-26) Creatinine 1.2 mg/dL (0.7-1.3) Estimated GFR (Cockcroft-Gault) 58.0 Glucose Level 151 mg/dL (70-99) Calcium Level 7.6 mg/dL (8.5-10.1) Magnesium Level 1.3 mg/dL (1.8-2.4) Test 09/24/16 10:32 09/24/16 17:12 09/24/16 20:56 09/25/16 07:21 Glucose (Fingerstick) 175 mg/dL (70-99) 210 mg/dL (70-99) 169 mg/dL (70-99) 137 mg/dL (70-99) Test 09/25/16 07:30 09/25/16 10:11 White Blood Count 7.9 x10^3/uL (4.0-11.0) Red Blood Count 2.98 x10^6/uL (4.30-5.70) Hemoglobin 9.1 g/dL (13.0-17.5) Hematocrit 26.7 % (39.0-53.0) Mean Corpuscular Volume 90 fL (79-100) Mean Corpuscular Hemoglobin 31 pg (25-35) Mean Corpuscular Hemoglobin Concent 34 g/dL (31-37) Red Cell Distribution Width 14.9 % (11.5-14.5) Platelet Count 190 x10^3/uL (140-400) Neutrophils (%) (Auto) 63 % (31-73) Lymphocytes (%) (Auto) 25 % (24-48) Monocytes (%) (Auto) 10 % (0-9) Eosinophils (%) (Auto) 2 % (0-3) Basophils (%) (Auto) 1 % (0-3) Neutrophils # (Auto) 5.0 x10^3uL (1.8-7.7) Lymphocytes # (Auto) 2.0 x10^3/uL (1.0-4.8) Monocytes # (Auto) 0.8 x10^3/uL (0.0-1.1) Eosinophils # (Auto) 0.2 x10^3/uL (0.0-0.7) Basophils # (Auto) 0.0 x10^3/uL (0.0-0.2) Sodium Level 149 mmol/L (136-145) Potassium Level 3.2 mmol/L (3.5-5.1) Chloride Level 115 mmol/L (98-107) Carbon Dioxide Level 26 mmol/L (21-32) Anion Gap 8 (6-14) Blood Urea Nitrogen 31 mg/dL (8-26) Creatinine 1.1 mg/dL (0.7-1.3) Estimated GFR (Cockcroft-Gault) 64.1 Glucose Level 140 mg/dL (70-99) Calcium Level 7.6 mg/dL (8.5-10.1) Magnesium Level 1.8 mg/dL (1.8-2.4) Glucose (Fingerstick) 171 mg/dL (70-99) Laboratory Tests Test 09/24/16 17:12 09/24/16 20:56 09/25/16 07:21 09/25/16 07:30 Glucose (Fingerstick) 210 mg/dL (70-99) 169 mg/dL (70-99) 137 mg/dL (70-99) White Blood Count 7.9 x10^3/uL (4.0-11.0) Red Blood Count 2.98 x10^6/uL (4.30-5.70) Hemoglobin 9.1 g/dL (13.0-17.5) Hematocrit 26.7 % (39.0-53.0) Mean Corpuscular Volume 90 fL (79-100) Mean Corpuscular Hemoglobin 31 pg (25-35) Mean Corpuscular Hemoglobin Concent 34 g/dL (31-37) Red Cell Distribution Width 14.9 % (11.5-14.5) Platelet Count 190 x10^3/uL (140-400) Neutrophils (%) (Auto) 63 % (31-73) Lymphocytes (%) (Auto) 25 % (24-48) Monocytes (%) (Auto) 10 % (0-9) Eosinophils (%) (Auto) 2 % (0-3) Basophils (%) (Auto) 1 % (0-3) Neutrophils # (Auto) 5.0 x10^3uL (1.8-7.7) Lymphocytes # (Auto) 2.0 x10^3/uL (1.0-4.8) Monocytes # (Auto) 0.8 x10^3/uL (0.0-1.1) Eosinophils # (Auto) 0.2 x10^3/uL (0.0-0.7) Basophils # (Auto) 0.0 x10^3/uL (0.0-0.2) Sodium Level 149 mmol/L (136-145) Potassium Level 3.2 mmol/L (3.5-5.1) Chloride Level 115 mmol/L (98-107) Carbon Dioxide Level 26 mmol/L (21-32) Anion Gap 8 (6-14) Blood Urea Nitrogen 31 mg/dL (8-26) Creatinine 1.1 mg/dL (0.7-1.3) Estimated GFR (Cockcroft-Gault) 64.1 Glucose Level 140 mg/dL (70-99) Calcium Level 7.6 mg/dL (8.5-10.1) Magnesium Level 1.8 mg/dL (1.8-2.4) Test 09/25/16 10:11 Glucose (Fingerstick) 171 mg/dL (70-99) Microbiology 09/21/16 Urine Culture - Final, Complete 09/21/16 Urine Culture Result 1 (NORBERTO) - Final, Complete Medications Current Medications Sodium Chloride 1,000 ml @ 1,000 mls/hr 1X ONCE IV Last administered on 19:49; Start 09/20/16 at 17:15; Stop 09/20/16 at 18:14; Status DC Sodium Chloride 1,000 ml @ 1,000 mls/hr 1X ONCE IV Last administered on 19:51; Start 09/20/16 at 17:15; Stop 09/20/16 at 18:14; Status DC Vancomycin HCl (Vanco Per Pharmacy) 1 each PRN DAILY PRN MC SEE COMMENTS Last administered on 09/20/16 19:32; Start 09/20/16 at 17:15; Stop 09/21/16 at 07:43 ; Status DC Piperacillin Sod/ Tazobactam Sod (Zosyn Per Pharmacy) 1 each PRN DAILY PRN MC SEE COMMENTS; Start 09/20/16 at 17:15; Stop 09/20/16 at 17:15; Status DC Sodium Chloride 1,000 ml @ 100 mls/hr Q10H IV Last administered on 09/24/16 03:55; Start 09/20/16 at 17:15; Stop 09/24/16 at 08:34; Status DC Hydrocortisone Sodium Succinate (Solu-CORTEF) 100 mg 1X ONCE IV Last administered on 09/20/16 19:50; Start 09/20/16 at 17:15; Stop 09/20/16 at 17:16 ; Status DC Hydrocortisone Sodium Succinate (Solu-CORTEF) 100 mg Q8HRS IV Last administered on 09/22/16 05:30; Start 09/20/16 at 22:00; Stop 09/22/16 at 11:15 ; Status DC Vancomycin HCl 2 gm/Sodium Chloride 500 ml @ 250 mls/hr 1X ONCE IV ; Start at 17:15; Stop 09/20/16 at 19:14; Status Cancel Piperacillin Sod/ Tazobactam Sod 4.5 gm/Sodium Chloride 100 ml @ 200 mls/hr Q6HRS IV ; Start 09/20/16 at 18:00; Stop 09/20/16 at 18:00; Status DC Albuterol/ Ipratropium (Duoneb) 3 ml RTQID NEB Last administered on 09/25/16 10 :58; Start 09/20/16 at 17:30 Calcium Carbonate/ Glycine (Tums) 500 mg TID PO Last administered on 09/25/16 08:36; Start 09/20/16 at 21:00 Docusate Sodium (Colace) 100 mg BID PO Last administered on 09/25/16 08:36; Start 09/20/16 at 21:00 Lamotrigine (LaMICtal) 100 mg BID PO ; Start 09/20/16 at 21:00; Stop 09/20/16 at 21:00; Status DC Levothyroxine Sodium (Synthroid) 112 mcg DAILY PO ; Start 09/21/16 at 09:00; Stop 09/21/16 at 09:00; Status DC Ondansetron HCl (Zofran Odt) 4 mg PRN Q4HRS PRN PO NAUSEA/VOMITING; Start 09/20 at 17:30 Phenytoin Sodium (Dilantin) 300 mg HS PO ; Start 09/20/16 at 21:00; Stop at 21:00; Status DC Capsaicin (Zostrix) 1 loulou BID TP Last administered on 09/24/16 23:18; Start at 21:00 Artificial Tears (Artificial Tears) 1 drop BID OU Last administered on 08:36; Start 09/20/16 at 21:00 Insulin Aspart Prota 70%/Aspart 30% (Novolog Mix 70-30) 10 units DAILYBFRSUP SQ Last administered on 09/22/16 17:47; Start 09/20/16 at 17:45; Stop 09/23/16 at 09:31; Status DC Insulin Aspart Prota 70%/Aspart 30% (Novolog Mix 70-30) 22 units DAILYAC SQ Last administered on 09/23/16 09:20; Start 09/21/16 at 07:30; Stop 09/23/16 at 09:31; Status DC Famotidine (Pepcid) 20 mg BID PO ; Start 09/20/16 at 21:00; Stop 09/21/16 at 08: 25; Status DC Heparin Sodium (Porcine) (Heparin Sq) 5,000 unit Q12HR SQ Last administered on 09/25/16 08:40; Start 09/20/16 at 21:00 Levetiracetam (Keppra) 500 mg BID PO ; Start 09/20/16 at 21:00; Stop 09/20/16 at 21:00; Status DC Doxycycline Hyclate 100 mg/ Dextrose 100 ml @ 50 mls/hr Q12HR IV Last administered on 09/25/16 08:35; Start 09/20/16 at 21:00 Vancomycin HCl 1 each 1X ONCE MC ; Start 09/22/16 at 16:00; Stop 09/22/16 at 16 :00; Status DC Levetiracetam 500 mg/Sodium Chloride 100 ml @ 400 mls/hr Q12HR IV Last administered on 09/25/16 11:44; Start 09/20/16 at 21:00 Norepinephrine Bitartrate 250 ml @ 0 mls/hr CONT PRN IV SEE I/O RECORD Last administered on 09/21/16 07:27; Start 09/20/16 at 21:45; Stop 09/22/16 at 16:09 ; Status DC Morphine Sulfate 4 mg PRN Q2HR PRN IV SEVERE PAIN Last administered on 20:59; Start 09/20/16 at 23:15; Stop 09/22/16 at 11:15; Status DC Albumin Human 500 ml @ 125 mls/hr 1X ONCE IV Last administered on 09/20/16 23:47; Start 09/20/16 at 23:30; Stop 09/21/16 at 03:29; Status DC Linezolid 300 ml @ 300 mls/hr Q12HR IV Last administered on 09/22/16 23:04; Start 09/21/16 at 09:00; Stop 09/23/16 at 10:17; Status DC Meropenem 500 mg/ Sodium Chloride 50 ml @ 100 mls/hr DAILY@0800 IV Last administered on 09/23/16 09:05; Start 09/21/16 at 08:00; Stop 09/23/16 at 10:17 ; Status DC Micafungin Sodium 100 mg/Dextrose 100 ml @ 100 mls/hr Q24H IV Last administered on 09/22/16 15:16; Start 09/21/16 at 10:00; Stop 09/23/16 at 10:17 ; Status DC Famotidine (Pepcid) 20 mg DAILY IVP Last administered on 09/25/16 08:36; Start 09/21/16 at 09:00 Levothyroxine Sodium 56 mcg/ Sodium Chloride 5 ml @ 100 mls/hr DAILY IVP Last administered on 09/25/16 11:56; Start 09/21/16 at 09:00 Fosphenytoin Sodium (Cerebyx) 100 mg Q8HRS IV Last administered on 09/25/16 06: 01; Start 09/21/16 at 09:00 Amino Acids/ Glycerin/ Electrolytes 1,000 ml @ 80 mls/hr [id number] IV Last administered on 09/23/16 18:04; Start 09/21/16 at 10:30; Stop 09/24/16 at 12:45 ; Status DC Morphine Sulfate 1 mg PRN Q2HR PRN IV SEVERE PAIN Last administered on 17:53; Start 09/22/16 at 11:15 Insulin Aspart (NovoLOG) 0-7 UNITS TIDWMEALS SQ Last administered on 09/24/16 17:00; Start 09/22/16 at 12:00 Dextrose (Dextrose 50%-Water Syringe) 12.5 gm PRN Q15MIN PRN IV SEE COMMENTS; Start 09/22/16 at 11:30 Potassium Chloride 50 ml @ 50 mls/hr Q1H IV Last administered on 09/23/16 14: 10; Start 09/23/16 at 10:00; Stop 09/23/16 at 11:59; Status DC Meropenem 500 mg/ Sodium Chloride 50 ml @ 100 mls/hr Q8HRS IV Last administered on 09/25/16 06:01; Start 09/23/16 at 14:00 Potassium Chloride 50 ml @ 50 mls/hr Q1H IV Last administered on 09/23/16 17: 43; Start 09/23/16 at 13:30; Stop 09/23/16 at 15:29; Status DC Potassium Chloride 50 ml @ 50 mls/hr 1X ONCE IV Last administered on 12:29; Start 09/24/16 at 08:45; Stop 09/24/16 at 18:26; Status DC Magnesium Sulfate/ Dextrose 100 ml @ 25 mls/hr 1X ONCE IV Last administered on 09/24/16 11:36; Start 09/24/16 at 08:45; Stop 09/24/16 at 12:44; Status DC Potassium Chloride (Klor-Con) 20 meq 1X ONCE PO ; Start 09/24/16 at 12:45; Stop 09/24/16 at 18:26; Status DC Magnesium Sulfate/ Dextrose 50 ml @ 25 mls/hr 1X ONCE IV ; Start 09/24/16 at 12 :45; Stop 09/24/16 at 18:26; Status DC Acetaminophen (Tylenol) 650 mg PRN Q6HRS PRN PO fever/mild pain Last administered on 09/25/16 03:19; Start 09/25/16 at 03:15 Potassium Chloride/Sodium Chloride 1,000 ml @ 60 mls/hr [id number] IV ; Start 09/25 at 10:45 Active Scripts Active Reported Keppra (Levetiracetam) 500 Mg Tablet 500 Mg PO BID Lamictal (Lamotrigine) 100 Mg Tablet 1 Tab PO BID Lasix (Furosemide) 20 Mg Tablet 1 Tab PO DAILY Humulin 70-30 Vial (Hum Insulin Nph/Reg Insulin Hm) 100 Unit/1 Ml Vial 22 Unit SQ Q AM Synthroid (Levothyroxine Sodium) 112 Mcg Tablet 1 Tab PO DAILY Humulin 70-30 Vial (Hum Insulin Nph/Reg Insulin Hm) 100 Unit/1 Ml Vial 10 Unit SQ DAILYBFRSUP Dilantin (Phenytoin Sodium Extended) 100 Mg Capsule 300 Mg PO HS Vitals/I & O Vital Sign - Last 24 Hours 09/24/16 09/24/16 09/24/16 09/24/16 15:00 15:00 15:49 19:00 Temp 99.1 100.2 99.1 100.2 Pulse 97 90 Resp 19 20 B/P (MAP) 135/39 (71) 120/48 (72) 108/33 (58) Pulse Ox 95 97 O2 Delivery Room Air Room Air Room Air 09/24/16 09/24/16 09/24/16 09/25/16 20:00 20:29 23:00 03:00 Temp 101.1 100.4 101.1 100.4 Pulse 94 89 Resp 20 18 B/P (MAP) 132/41 (71) 112/41 (64) Pulse Ox 95 97 93 O2 Delivery Room Air Room Air Room Air Room Air O2 Flow Rate 3.0 09/25/16 09/25/16 09/25/16 09/25/16 07:00 07:25 08:00 11:00 Temp 97.7 97.8 97.7 97.8 Pulse 87 86 Resp 19 19 B/P (MAP) 114/53 (73) 114/50 (71) Pulse Ox 94 94 95 O2 Delivery Room Air Room Air Room Air Room Air O2 Flow Rate 3.0 09/25/16 11:02 O2 Delivery Room Air Intake and Output 09/24/16 09/24/16 09/25/16 15:00 23:00 07:00 Intake Total 150 ml 1000 ml 120 ml Output Total 1800 ml 2435 ml Balance 150 ml -800 ml -2315 ml ELANA MONTILLA MD Sep 25, 2016 13:05
--- NOTE | 2016-09-25 13:20 | PDOC ---
Infectious Disease Note Subjective Subjective More alert and talkative, Denies pain Fever Tmax 101.1 Vital Sign Vital Signs Vital Signs Date Time Temp Pulse Resp B/P (MAP) Pulse Ox O2 Delivery O2 Flow Rate FiO2 09/25/16 11:02 Room Air 09/25/16 11:00 97.8 86 19 114/50 (71) 95 97.8 09/25/16 08:00 3.0 Physical Exam PHYSICAL EXAM GENERAL: Alert, calm, appears more relaxed LUNGS: Clear HEART: S1S2, no gallop, no murmur ABD: Obese, BS present, soft, ostomy Gu: Bro EXT: No edema, no cyanosis FI[employer] MANA[employer] OFFICER: Alert, oriented to self, confused SKIN: No rash RUE-PICC. clean Labs Lab Laboratory Tests Test 09/24/16 17:12 09/24/16 20:56 09/25/16 07:21 09/25/16 07:30 Glucose (Fingerstick) 210 mg/dL (70-99) 169 mg/dL (70-99) 137 mg/dL (70-99) White Blood Count 7.9 x10^3/uL (4.0-11.0) Red Blood Count 2.98 x10^6/uL (4.30-5.70) Hemoglobin 9.1 g/dL (13.0-17.5) Hematocrit 26.7 % (39.0-53.0) Mean Corpuscular Volume 90 fL (79-100) Mean Corpuscular Hemoglobin 31 pg (25-35) Mean Corpuscular Hemoglobin Concent 34 g/dL (31-37) Red Cell Distribution Width 14.9 % (11.5-14.5) Platelet Count 190 x10^3/uL (140-400) Neutrophils (%) (Auto) 63 % (31-73) Lymphocytes (%) (Auto) 25 % (24-48) Monocytes (%) (Auto) 10 % (0-9) Eosinophils (%) (Auto) 2 % (0-3) Basophils (%) (Auto) 1 % (0-3) Neutrophils # (Auto) 5.0 x10^3uL (1.8-7.7) Lymphocytes # (Auto) 2.0 x10^3/uL (1.0-4.8) Monocytes # (Auto) 0.8 x10^3/uL (0.0-1.1) Eosinophils # (Auto) 0.2 x10^3/uL (0.0-0.7) Basophils # (Auto) 0.0 x10^3/uL (0.0-0.2) Sodium Level 149 mmol/L (136-145) Potassium Level 3.2 mmol/L (3.5-5.1) Chloride Level 115 mmol/L (98-107) Carbon Dioxide Level 26 mmol/L (21-32) Anion Gap 8 (6-14) Blood Urea Nitrogen 31 mg/dL (8-26) Creatinine 1.1 mg/dL (0.7-1.3) Estimated GFR (Cockcroft-Gault) 64.1 Glucose Level 140 mg/dL (70-99) Calcium Level 7.6 mg/dL (8.5-10.1) Magnesium Level 1.8 mg/dL (1.8-2.4) Test 09/25/16 10:11 Glucose (Fingerstick) 171 mg/dL (70-99) Portable chest, 09/25/2016: History: Fever Comparison is made to a study from 09/20/2016. A right PICC extends into the superior vena cava. The heart size and pulmonary vascularity are normal. There is only mild minimal residual linear atelectasis in the right base and left perihilar region. No consolidating infiltrate is seen. There is no evidence of pleural fluid. IMPRESSION: 1. The right PICC extends into the superior vena cava. 2. Minimal residual right basilar and left perihilar linear atelectasis. Micro URINE CULTURE Final No growth in 48 hours. Objective Assessment Fever Encephalopathy Leukocytosis - better Sepsis - off pressors Levophed -Received Vanc/Rocephin/Levoflox prior to transfer KINZA - better ? UTI - POA Multiple abx allergies Seizures - on Keppra Plan Plan of Care Doxy and Meropenem Urine and blood cultures have been ordered. await results f/u am labs Supportive care Attending Co-Sign The patient was seen and interviewed as well as examined at the bedside. The chart was reviewed. The case was discussed. Agree with the plan of care. LAVON SOUSA APRN Sep 25, 2016 13:20 JAREK EUGENE MD Sep 25, 2016 14:11
--- NOTE | 2016-09-25 13:44 | PDOC ---
DATE DATE OF STUDY 09/24/16 EEG # [id number] Current Medications Medications (Trade) Dose Ordered Sig/Penny Route PRN Reason Start Time Stop Time Status Last Admin Dose Admin Acetaminophen (Tylenol) 650 mg PRN Q6HRS PRN PO fever/mild pain 09/25/16 03:15 09/25/16 03:19 650 MG Potassium Chloride/Sodium Chloride 1,000 ml @ 60 mls/hr [id number] IV 09/25/16 10:45 09/25/16 10:45 60 MLS/HR EEG STUDY RESULTS EEG STUDY RESULTS OBJECT: The patient is an 80-year-old male with altered mental status. DESCRIPTION: Electrodes are placed according to the international 10-20 system. Bipolar and referential montages are available. Activation procedures typically include hyperventilation and intermittent photic stimulation. INTERPRETATION: The background consists of 5-6 Hz, 50-100 V activity. Sleep was not achieved. Hyperventilation is not performed. Intermittent photic stimulation is noncontributory. IMPRESSION: This electroencephalogram with the patient in an obtunded state is abnormal because of slowing of background activity consistent with any of a variety of toxic or metabolic encephalopathy. There is no focal, paroxysmal, or epileptiform activity. Thank you for letting us help with the patient's care. JUAN FERGUSON MD Sep 25, 2016 13:44
--- NOTE | 2016-09-25 14:11 | PDOC ---
PROGRESS NOTES Assessment Epilepsy, EEG negative for current seizure activity NPO status Metabolic encephalopathy Plan Continue current treatment Resume lamotrigine when taking orally Subjective no complaints Objective Vital Signs Date Time Temp Pulse Resp B/P (MAP) Pulse Ox O2 Delivery O2 Flow Rate FiO2 09/25/16 11:02 Room Air 09/25/16 11:00 97.8 86 19 114/50 (71) 95 97.8 09/25/16 08:00 3.0 Intake and Output 09/25/16 06:59 Intake Total 1270 ml Output Total 4235 ml Balance -2965 ml Intake Oral 1270 ml Output Urine Total 2075 ml Stool Total 2160 ml PHYSICAL EXAM Alert. Oriented only to person. Much more conversant than yesterday PERRL. EOMI. CN: no focal findings. Muscle tone: normal. Muscle strength: Moves all extremities DTR: 1+ Plantar reflex: flexor Gait: not examined in bed. Sensory exam: no abnormal findings. No cerebellar signs elicited. Review of Relevant I have reviewed the following items juliocesar (where applicable) has been applied. Labs Laboratory Tests Test 09/23/16 17:05 09/23/16 20:54 09/24/16 04:40 09/24/16 07:40 Glucose (Fingerstick) 107 mg/dL (70-99) 115 mg/dL (70-99) 174 mg/dL (70-99) White Blood Count 8.6 x10^3/uL (4.0-11.0) Red Blood Count 2.87 x10^6/uL (4.30-5.70) Hemoglobin 8.8 g/dL (13.0-17.5) Hematocrit 25.8 % (39.0-53.0) Mean Corpuscular Volume 90 fL (79-100) Mean Corpuscular Hemoglobin 31 pg (25-35) Mean Corpuscular Hemoglobin Concent 34 g/dL (31-37) Red Cell Distribution Width 13.9 % (11.5-14.5) Platelet Count 198 x10^3/uL (140-400) Neutrophils (%) (Auto) 66 % (31-73) Lymphocytes (%) (Auto) 24 % (24-48) Monocytes (%) (Auto) 9 % (0-9) Eosinophils (%) (Auto) 0 % (0-3) Basophils (%) (Auto) 0 % (0-3) Neutrophils # (Auto) 5.7 x10^3uL (1.8-7.7) Lymphocytes # (Auto) 2.1 x10^3/uL (1.0-4.8) Monocytes # (Auto) 0.8 x10^3/uL (0.0-1.1) Eosinophils # (Auto) 0.0 x10^3/uL (0.0-0.7) Basophils # (Auto) 0.0 x10^3/uL (0.0-0.2) Sodium Level 144 mmol/L (136-145) Potassium Level 3.3 mmol/L (3.5-5.1) Chloride Level 112 mmol/L (98-107) Carbon Dioxide Level 24 mmol/L (21-32) Anion Gap 8 (6-14) Blood Urea Nitrogen 46 mg/dL (8-26) Creatinine 1.2 mg/dL (0.7-1.3) Estimated GFR (Cockcroft-Gault) 58.0 Glucose Level 151 mg/dL (70-99) Calcium Level 7.6 mg/dL (8.5-10.1) Magnesium Level 1.3 mg/dL (1.8-2.4) Test 09/24/16 10:32 09/24/16 17:12 09/24/16 20:56 09/25/16 07:21 Glucose (Fingerstick) 175 mg/dL (70-99) 210 mg/dL (70-99) 169 mg/dL (70-99) 137 mg/dL (70-99) Test 09/25/16 07:30 09/25/16 10:11 White Blood Count 7.9 x10^3/uL (4.0-11.0) Red Blood Count 2.98 x10^6/uL (4.30-5.70) Hemoglobin 9.1 g/dL (13.0-17.5) Hematocrit 26.7 % (39.0-53.0) Mean Corpuscular Volume 90 fL (79-100) Mean Corpuscular Hemoglobin 31 pg (25-35) Mean Corpuscular Hemoglobin Concent 34 g/dL (31-37) Red Cell Distribution Width 14.9 % (11.5-14.5) Platelet Count 190 x10^3/uL (140-400) Neutrophils (%) (Auto) 63 % (31-73) Lymphocytes (%) (Auto) 25 % (24-48) Monocytes (%) (Auto) 10 % (0-9) Eosinophils (%) (Auto) 2 % (0-3) Basophils (%) (Auto) 1 % (0-3) Neutrophils # (Auto) 5.0 x10^3uL (1.8-7.7) Lymphocytes # (Auto) 2.0 x10^3/uL (1.0-4.8) Monocytes # (Auto) 0.8 x10^3/uL (0.0-1.1) Eosinophils # (Auto) 0.2 x10^3/uL (0.0-0.7) Basophils # (Auto) 0.0 x10^3/uL (0.0-0.2) Sodium Level 149 mmol/L (136-145) Potassium Level 3.2 mmol/L (3.5-5.1) Chloride Level 115 mmol/L (98-107) Carbon Dioxide Level 26 mmol/L (21-32) Anion Gap 8 (6-14) Blood Urea Nitrogen 31 mg/dL (8-26) Creatinine 1.1 mg/dL (0.7-1.3) Estimated GFR (Cockcroft-Gault) 64.1 Glucose Level 140 mg/dL (70-99) Calcium Level 7.6 mg/dL (8.5-10.1) Magnesium Level 1.8 mg/dL (1.8-2.4) Glucose (Fingerstick) 171 mg/dL (70-99) Laboratory Tests Test 09/24/16 17:12 09/24/16 20:56 09/25/16 07:21 09/25/16 07:30 Glucose (Fingerstick) 210 mg/dL (70-99) 169 mg/dL (70-99) 137 mg/dL (70-99) White Blood Count 7.9 x10^3/uL (4.0-11.0) Red Blood Count 2.98 x10^6/uL (4.30-5.70) Hemoglobin 9.1 g/dL (13.0-17.5) Hematocrit 26.7 % (39.0-53.0) Mean Corpuscular Volume 90 fL (79-100) Mean Corpuscular Hemoglobin 31 pg (25-35) Mean Corpuscular Hemoglobin Concent 34 g/dL (31-37) Red Cell Distribution Width 14.9 % (11.5-14.5) Platelet Count 190 x10^3/uL (140-400) Neutrophils (%) (Auto) 63 % (31-73) Lymphocytes (%) (Auto) 25 % (24-48) Monocytes (%) (Auto) 10 % (0-9) Eosinophils (%) (Auto) 2 % (0-3) Basophils (%) (Auto) 1 % (0-3) Neutrophils # (Auto) 5.0 x10^3uL (1.8-7.7) Lymphocytes # (Auto) 2.0 x10^3/uL (1.0-4.8) Monocytes # (Auto) 0.8 x10^3/uL (0.0-1.1) Eosinophils # (Auto) 0.2 x10^3/uL (0.0-0.7) Basophils # (Auto) 0.0 x10^3/uL (0.0-0.2) Sodium Level 149 mmol/L (136-145) Potassium Level 3.2 mmol/L (3.5-5.1) Chloride Level 115 mmol/L (98-107) Carbon Dioxide Level 26 mmol/L (21-32) Anion Gap 8 (6-14) Blood Urea Nitrogen 31 mg/dL (8-26) Creatinine 1.1 mg/dL (0.7-1.3) Estimated GFR (Cockcroft-Gault) 64.1 Glucose Level 140 mg/dL (70-99) Calcium Level 7.6 mg/dL (8.5-10.1) Magnesium Level 1.8 mg/dL (1.8-2.4) Test 09/25/16 10:11 Glucose (Fingerstick) 171 mg/dL (70-99) Microbiology 09/21/16 Urine Culture - Final, Complete 09/21/16 Urine Culture Result 1 (NORBERTO) - Final, Complete Medications Current Medications Sodium Chloride 1,000 ml @ 1,000 mls/hr 1X ONCE IV Last administered on t 19:49; Start 09/20/16 at 17:15; Stop 09/20/16 at 18:14; Status DC Sodium Chloride 1,000 ml @ 1,000 mls/hr 1X ONCE IV Last administered on 19:51; Start 09/20/16 at 17:15; Stop 09/20/16 at 18:14; Status DC Vancomycin HCl (Vanco Per Pharmacy) 1 each PRN DAILY PRN MC SEE COMMENTS Last administered on 09/20/16 19:32; Start 09/20/16 at 17:15; Stop 09/21/16 at 07:43 ; Status DC Piperacillin Sod/ Tazobactam Sod (Zosyn Per Pharmacy) 1 each PRN DAILY PRN MC SEE COMMENTS; Start 09/20/16 at 17:15; Stop 09/20/16 at 17:15; Status DC Sodium Chloride 1,000 ml @ 100 mls/hr Q10H IV Last administered on 09/24/16 03:55; Start 09/20/16 at 17:15; Stop 09/24/16 at 08:34; Status DC Hydrocortisone Sodium Succinate (Solu-CORTEF) 100 mg 1X ONCE IV Last administered on 09/20/16 19:50; Start 09/20/16 at 17:15; Stop 09/20/16 at 17:16 ; Status DC Hydrocortisone Sodium Succinate (Solu-CORTEF) 100 mg Q8HRS IV Last administered on 09/22/16 05:30; Start 09/20/16 at 22:00; Stop 09/22/16 at 11:15 ; Status DC Vancomycin HCl 2 gm/Sodium Chloride 500 ml @ 250 mls/hr 1X ONCE IV ; Start at 17:15; Stop 09/20/16 at 19:14; Status Cancel Piperacillin Sod/ Tazobactam Sod 4.5 gm/Sodium Chloride 100 ml @ 200 mls/hr Q6HRS IV ; Start 09/20/16 at 18:00; Stop 09/20/16 at 18:00; Status DC Albuterol/ Ipratropium (Duoneb) 3 ml RTQID NEB Last administered on 09/25/16 10 :58; Start 09/20/16 at 17:30 Calcium Carbonate/ Glycine (Tums) 500 mg TID PO Last administered on 09/25/16 08:36; Start 09/20/16 at 21:00 Docusate Sodium (Colace) 100 mg BID PO Last administered on 09/25/16 08:36; Start 09/20/16 at 21:00 Lamotrigine (LaMICtal) 100 mg BID PO ; Start 09/20/16 at 21:00; Stop 09/20/16 at 21:00; Status DC Levothyroxine Sodium (Synthroid) 112 mcg DAILY PO ; Start 09/21/16 at 09:00; Stop 09/21/16 at 09:00; Status DC Ondansetron HCl (Zofran Odt) 4 mg PRN Q4HRS PRN PO NAUSEA/VOMITING; Start 09/20 at 17:30 Phenytoin Sodium (Dilantin) 300 mg HS PO ; Start 09/20/16 at 21:00; Stop at 21:00; Status DC Capsaicin (Zostrix) 1 loulou BID TP Last administered on 09/25/16 09:00; Start at 21:00 Artificial Tears (Artificial Tears) 1 drop BID OU Last administered on 08:36; Start 09/20/16 at 21:00 Insulin Aspart Prota 70%/Aspart 30% (Novolog Mix 70-30) 10 units DAILYBFRSUP SQ Last administered on 09/22/16 17:47; Start 09/20/16 at 17:45; Stop 09/23/16 at 09:31; Status DC Insulin Aspart Prota 70%/Aspart 30% (Novolog Mix 70-30) 22 units DAILYAC SQ Last administered on 09/23/16 09:20; Start 09/21/16 at 07:30; Stop 09/23/16 at 09:31; Status DC Famotidine (Pepcid) 20 mg BID PO ; Start 09/20/16 at 21:00; Stop 09/21/16 at 08: 25; Status DC Heparin Sodium (Porcine) (Heparin Sq) 5,000 unit Q12HR SQ Last administered on 09/25/16 08:40; Start 09/20/16 at 21:00 Levetiracetam (Keppra) 500 mg BID PO ; Start 09/20/16 at 21:00; Stop 09/20/16 at 21:00; Status DC Doxycycline Hyclate 100 mg/ Dextrose 100 ml @ 50 mls/hr Q12HR IV Last administered on 09/25/16 08:35; Start 09/20/16 at 21:00 Vancomycin HCl 1 each 1X ONCE MC ; Start 09/22/16 at 16:00; Stop 09/22/16 at 16 :00; Status DC Levetiracetam 500 mg/Sodium Chloride 100 ml @ 400 mls/hr Q12HR IV Last administered on 09/25/16 11:44; Start 09/20/16 at 21:00 Norepinephrine Bitartrate 250 ml @ 0 mls/hr CONT PRN IV SEE I/O RECORD Last administered on 09/21/16 07:27; Start 09/20/16 at 21:45; Stop 09/22/16 at 16:09 ; Status DC Morphine Sulfate 4 mg PRN Q2HR PRN IV SEVERE PAIN Last administered on 20:59; Start 09/20/16 at 23:15; Stop 09/22/16 at 11:15; Status DC Albumin Human 500 ml @ 125 mls/hr 1X ONCE IV Last administered on 09/20/16 23:47; Start 09/20/16 at 23:30; Stop 09/21/16 at 03:29; Status DC Linezolid 300 ml @ 300 mls/hr Q12HR IV Last administered on 09/22/16 23:04; Start 09/21/16 at 09:00; Stop 09/23/16 at 10:17; Status DC Meropenem 500 mg/ Sodium Chloride 50 ml @ 100 mls/hr DAILY@0800 IV Last administered on 09/23/16 09:05; Start 09/21/16 at 08:00; Stop 09/23/16 at 10:17 ; Status DC Micafungin Sodium 100 mg/Dextrose 100 ml @ 100 mls/hr Q24H IV Last administered on 09/22/16 15:16; Start 09/21/16 at 10:00; Stop 09/23/16 at 10:17 ; Status DC Famotidine (Pepcid) 20 mg DAILY IVP Last administered on 09/25/16 08:36; Start 09/21/16 at 09:00; Stop 09/25/16 at 13:04; Status DC Levothyroxine Sodium 56 mcg/ Sodium Chloride 5 ml @ 100 mls/hr DAILY IVP Last administered on 09/25/16 11:56; Start 09/21/16 at 09:00; Stop 09/25/16 at 13:04; Status DC Fosphenytoin Sodium (Cerebyx) 100 mg Q8HRS IV Last administered on 09/25/16 06: 01; Start 09/21/16 at 09:00 Amino Acids/ Glycerin/ Electrolytes 1,000 ml @ 80 mls/hr [id number] IV Last administered on 09/23/16 18:04; Start 09/21/16 at 10:30; Stop 09/24/16 at 12:45 ; Status DC Morphine Sulfate 1 mg PRN Q2HR PRN IV SEVERE PAIN Last administered on 17:53; Start 09/22/16 at 11:15 Insulin Aspart (NovoLOG) 0-7 UNITS TIDWMEALS SQ Last administered on 09/25/16 13:19; Start 09/22/16 at 12:00 Dextrose (Dextrose 50%-Water Syringe) 12.5 gm PRN Q15MIN PRN IV SEE COMMENTS; Start 09/22/16 at 11:30 Potassium Chloride 50 ml @ 50 mls/hr Q1H IV Last administered on 09/23/16 14: 10; Start 09/23/16 at 10:00; Stop 09/23/16 at 11:59; Status DC Meropenem 500 mg/ Sodium Chloride 50 ml @ 100 mls/hr Q8HRS IV Last administered on 09/25/16 06:01; Start 09/23/16 at 14:00 Potassium Chloride 50 ml @ 50 mls/hr Q1H IV Last administered on 09/23/16 17: 43; Start 09/23/16 at 13:30; Stop 09/23/16 at 15:29; Status DC Potassium Chloride 50 ml @ 50 mls/hr 1X ONCE IV Last administered on 12:29; Start 09/24/16 at 08:45; Stop 09/24/16 at 18:26; Status DC Magnesium Sulfate/ Dextrose 100 ml @ 25 mls/hr 1X ONCE IV Last administered on 09/24/16 11:36; Start 09/24/16 at 08:45; Stop 09/24/16 at 12:44; Status DC Potassium Chloride (Klor-Con) 20 meq 1X ONCE PO ; Start 09/24/16 at 12:45; Stop 09/24/16 at 18:26; Status DC Magnesium Sulfate/ Dextrose 50 ml @ 25 mls/hr 1X ONCE IV ; Start 09/24/16 at 12 :45; Stop 09/24/16 at 18:26; Status DC Acetaminophen (Tylenol) 650 mg PRN Q6HRS PRN PO fever/mild pain Last administered on 09/25/16 03:19; Start 09/25/16 at 03:15 Potassium Chloride/Sodium Chloride 1,000 ml @ 60 mls/hr [id number] IV Last administered on 09/25/16 10:45; Start 09/25/16 at 10:45 Famotidine (Pepcid) 20 mg QHS PO ; Start 09/26/16 at 21:00 Levothyroxine Sodium (Synthroid) 112 mcg DAILY07 PO ; Start 09/26/16 at 07:00 Active Scripts Active Reported Keppra (Levetiracetam) 500 Mg Tablet 500 Mg PO BID Lamictal (Lamotrigine) 100 Mg Tablet 1 Tab PO BID Lasix (Furosemide) 20 Mg Tablet 1 Tab PO DAILY Humulin 70-30 Vial (Hum Insulin Nph/Reg Insulin Hm) 100 Unit/1 Ml Vial 22 Unit SQ Q AM Synthroid (Levothyroxine Sodium) 112 Mcg Tablet 1 Tab PO DAILY Humulin 70-30 Vial (Hum Insulin Nph/Reg Insulin Hm) 100 Unit/1 Ml Vial 10 Unit SQ DAILYBFRSUP Dilantin (Phenytoin Sodium Extended) 100 Mg Capsule 300 Mg PO HS Vitals/I & O Vital Sign - Last 24 Hours 09/24/16 09/24/16 09/24/16 09/24/16 15:00 15:00 15:49 19:00 Temp 99.1 100.2 99.1 100.2 Pulse 97 90 Resp 19 20 B/P (MAP) 135/39 (71) 120/48 (72) 108/33 (58) Pulse Ox 95 97 O2 Delivery Room Air Room Air Room Air 09/24/16 09/24/16 09/24/16 09/25/16 20:00 20:29 23:00 03:00 Temp 101.1 100.4 101.1 100.4 Pulse 94 89 Resp 20 18 B/P (MAP) 132/41 (71) 112/41 (64) Pulse Ox 95 97 93 O2 Delivery Room Air Room Air Room Air Room Air O2 Flow Rate 3.0 09/25/16 09/25/16 09/25/16 09/25/16 07:00 07:25 08:00 11:00 Temp 97.7 97.8 97.7 97.8 Pulse 87 86 Resp 19 19 B/P (MAP) 114/53 (73) 114/50 (71) Pulse Ox 94 94 95 O2 Delivery Room Air Room Air Room Air Room Air O2 Flow Rate 3.0 09/25/16 11:02 O2 Delivery Room Air Intake and Output 09/24/16 09/24/16 09/25/16 14:59 22:59 06:59 Intake Total 150 ml 1000 ml 120 ml Output Total 1800 ml 2435 ml Balance 150 ml -800 ml -2315 ml Images EEG: Diffuse background slowing, no epileptic activity JUAN FERGUSON MD Sep 25, 2016 14:11
[2016-09-25 15:00] VITALS: BP 116/52
[2016-09-25 19:00] VITALS: BP 118/59
[2016-09-25 23:00] VITALS: BP 118/53
[2016-09-26 03:00] VITALS: BP 114/56
[2016-09-26 05:13] LABS: CALCIUM 7.6 mg/dL (8.5-10.1); GFR 71.5; POTASSIUM 3.3 mmol/L (3.5-5.1)
[2016-09-26] MEDS: LEVOTHYROXINE 112 MCG TABLET PO SCH (05:51)
[2016-09-26] MEDS: FOSPHENYTOIN 100 MG/2 ML VIAL. IV SCH ×3 (05:51→21:52)
[2016-09-26] MEDS: MEROPENEM 500 MG in IV NORMAL SALINE 50ML 50 ML IV SCH ×3 (05:52→21:57)
[2016-09-26 05:58] LABS: BASO % 0 % (0-3); EOS % 2 % (0-3); HEMATOCRIT 27.1 % (39.0-53.0); HEMOGLOBIN 9.2 g/dL (13.0-17.5); LYMPH # 2.1 x10^3/uL (1.0-4.8); LYMPH % 27 % (24-48); MEAN CORPUSCULAR HEMOGLOBIN 31 pg (25-35); MEAN CORPUSCULAR HGB CONC 34 g/dL (31-37); MEAN CORPUSCULAR VOLUME 91 fL (79-100); MONO % 10 % (0-9); NEUT % 61 % (31-73); PLATELET COUNT 198 x10^3/uL (140-400); RED CELL DISTRIBUTION WIDTH 14.7 % (11.5-14.5); WHITE BLOOD COUNT 7.7 x10^3/uL (4.0-11.0)
[2016-09-26 07:00] VITALS: BP 137/55
[2016-09-26] MEDS: IPRATRPIUM/ALBUTEROL 0.5/2.5MG 3 ML NEBU. NEB SCH ×4 (07:16→19:31)
[2016-09-26] MEDS: INSULIN ASPART 300 UNITS/3 ML INSULN.PEN SQ SCH ×3 (08:00→17:14)
[2016-09-26] MEDS: DOXYCYCLINE HYCLATE 100 MG in IV DEXTROSE 5% 100 ML IV SCH ×2 (09:03→21:54)
[2016-09-26] MEDS: DOCUSATE SODIUM 100 MG CAPSULE. PO SCH ×2 (09:03→21:52)
[2016-09-26] MEDS: CALCIUM CARBONATE 500 MG TAB.CHEW PO SCH ×3 (09:06→21:52)
[2016-09-26] MEDS: POLYVINYL ALCOHOL 1.4% OPHTH SOLUTION 15ML BOTTLE. OU SCH ×2 (09:07→21:53)
[2016-09-26] MEDS: CAPSAICIN 0.025% TOPICAL CREAM 60GM TUBE. TP SCH ×2 (09:08→21:53)
[2016-09-26] MEDS: POTASSIUM CL 20MEQ-0.45% NACL 1,000 ML IV SCH (09:09)
[2016-09-26] MEDS: HEPARIN PF for SUB-Q USE 5,000 UNIT/0.5 ML VIAL. SQ SCH ×2 (09:29→22:04)
[2016-09-26 11:00] VITALS: BP 128/62
[2016-09-26] MEDS ORDERED: POTASSIUM CHLORIDE 20 MEQ TABLET.ER. PO ONE (11:00)
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
--- NOTE | 2016-09-26 13:22 | PDOC ---
PROGRESS NOTES Chief Complaint Chief Complaint AMS Septic shock ASSESSMENT AND PLAN: 1. Severe Sepsis with shock: possible pna or UTI, no good etiology. weaned off pressors, 2. UTI possible: culture neg; on empiric merrem, doxy, dced zyvox, micafungin - ID service following; Abx as per ID 3. AMS with baseline dementia: difficult to eval, as baseline is demented. per guards, he is at baseline now 4. Leukocytosis: reactive 2/2 infect 5. KINZA on CKD3: POA, continues to improve. baseline creat 1.1 6. Anemia: chronic, 2/2 inflammation and CKD. significantly increased H/H today w/o transfusion: suspect lab error - rpt lab 7. Epilepsy: no active issues. on keppra, dilantion 8. Dysphagia diet 9. Nutrition: on PPN for now. 10. Hypoalbuminemia: inflammation, ?malnutrition. 11. DM2 12. hypernatremia plan: fu with neuro, renal, ID add k + d5 75cc/h replete K. dc insulin, SSI only. PAT consulted, DNR. EEG done, neg cont iv abx, fu with ID hoyos cx again on 09/24 night given high fever, dont know why UA, UCX not back, BCX neg so far dc in 1-2ds History of Present Illness History of Present Illness moderate confused, but as per long-term guards, this is his baseline, aaox1-2, sometimes language abuse was in long-term hospice before, but NOT DNR sister DPSTEVE eventually came last night , DNR now on dysphagia diet now, low po intake high feve2 nights ago low K, mag high Na Vitals Vitals Vital Signs Date Time Temp Pulse Resp B/P (MAP) Pulse Ox O2 Delivery O2 Flow Rate FiO2 09/26/16 11:45 Room Air 09/26/16 11:00 98.1 76 18 128/62 (84) 98 98.1 09/25/16 20:00 3.0 Physical Exam Physical Exam has PICC line General: Alert, No acute distress, Other (demented, perseveration) Heart: Regular rate Lungs: Wheezing (resolved) Abdomen: Normal bowel sounds, Soft, No tenderness Extremities: No clubbing Skin: No rashes Labs LABS Laboratory Tests Test 09/25/16 16:31 09/25/16 21:20 09/26/16 04:40 09/26/16 07:23 Glucose (Fingerstick) 148 mg/dL (70-99) 143 mg/dL (70-99) 115 mg/dL (70-99) White Blood Count 7.7 x10^3/uL (4.0-11.0) Red Blood Count 3.00 x10^6/uL (4.30-5.70) Hemoglobin 9.2 g/dL (13.0-17.5) Hematocrit 27.1 % (39.0-53.0) Mean Corpuscular Volume 91 fL (79-100) Mean Corpuscular Hemoglobin 31 pg (25-35) Mean Corpuscular Hemoglobin Concent 34 g/dL (31-37) Red Cell Distribution Width 14.7 % (11.5-14.5) Platelet Count 198 x10^3/uL (140-400) Neutrophils (%) (Auto) 61 % (31-73) Lymphocytes (%) (Auto) 27 % (24-48) Monocytes (%) (Auto) 10 % (0-9) Eosinophils (%) (Auto) 2 % (0-3) Basophils (%) (Auto) 0 % (0-3) Neutrophils # (Auto) 4.7 x10^3uL (1.8-7.7) Lymphocytes # (Auto) 2.1 x10^3/uL (1.0-4.8) Monocytes # (Auto) 0.7 x10^3/uL (0.0-1.1) Eosinophils # (Auto) 0.2 x10^3/uL (0.0-0.7) Basophils # (Auto) 0.0 x10^3/uL (0.0-0.2) Sodium Level 148 mmol/L (136-145) Potassium Level 3.3 mmol/L (3.5-5.1) Chloride Level 115 mmol/L (98-107) Carbon Dioxide Level 24 mmol/L (21-32) Anion Gap 9 (6-14) Blood Urea Nitrogen 29 mg/dL (8-26) Creatinine 1.0 mg/dL (0.7-1.3) Estimated GFR (Cockcroft-Gault) 71.5 Glucose Level 115 mg/dL (70-99) Calcium Level 7.6 mg/dL (8.5-10.1) Test 09/26/16 11:22 Glucose (Fingerstick) 171 mg/dL (70-99) Review of Systems Review of Systems no fever, chills, sob or chest pain Comment Review of Relevant I have reviewed the following items juliocesar (where applicable) has been applied. Labs Laboratory Tests Test 09/24/16 17:12 09/24/16 20:56 09/25/16 07:21 09/25/16 07:30 Glucose (Fingerstick) 210 mg/dL (70-99) 169 mg/dL (70-99) 137 mg/dL (70-99) White Blood Count 7.9 x10^3/uL (4.0-11.0) Red Blood Count 2.98 x10^6/uL (4.30-5.70) Hemoglobin 9.1 g/dL (13.0-17.5) Hematocrit 26.7 % (39.0-53.0) Mean Corpuscular Volume 90 fL (79-100) Mean Corpuscular Hemoglobin 31 pg (25-35) Mean Corpuscular Hemoglobin Concent 34 g/dL (31-37) Red Cell Distribution Width 14.9 % (11.5-14.5) Platelet Count 190 x10^3/uL (140-400) Neutrophils (%) (Auto) 63 % (31-73) Lymphocytes (%) (Auto) 25 % (24-48) Monocytes (%) (Auto) 10 % (0-9) Eosinophils (%) (Auto) 2 % (0-3) Basophils (%) (Auto) 1 % (0-3) Neutrophils # (Auto) 5.0 x10^3uL (1.8-7.7) Lymphocytes # (Auto) 2.0 x10^3/uL (1.0-4.8) Monocytes # (Auto) 0.8 x10^3/uL (0.0-1.1) Eosinophils # (Auto) 0.2 x10^3/uL (0.0-0.7) Basophils # (Auto) 0.0 x10^3/uL (0.0-0.2) Sodium Level 149 mmol/L (136-145) Potassium Level 3.2 mmol/L (3.5-5.1) Chloride Level 115 mmol/L (98-107) Carbon Dioxide Level 26 mmol/L (21-32) Anion Gap 8 (6-14) Blood Urea Nitrogen 31 mg/dL (8-26) Creatinine 1.1 mg/dL (0.7-1.3) Estimated GFR (Cockcroft-Gault) 64.1 Glucose Level 140 mg/dL (70-99) Calcium Level 7.6 mg/dL (8.5-10.1) Magnesium Level 1.8 mg/dL (1.8-2.4) Test 09/25/16 10:11 09/25/16 16:31 09/25/16 21:20 09/26/16 04:40 Glucose (Fingerstick) 171 mg/dL (70-99) 148 mg/dL (70-99) 143 mg/dL (70-99) White Blood Count 7.7 x10^3/uL (4.0-11.0) Red Blood Count 3.00 x10^6/uL (4.30-5.70) Hemoglobin 9.2 g/dL (13.0-17.5) Hematocrit 27.1 % (39.0-53.0) Mean Corpuscular Volume 91 fL (79-100) Mean Corpuscular Hemoglobin 31 pg (25-35) Mean Corpuscular Hemoglobin Concent 34 g/dL (31-37) Red Cell Distribution Width 14.7 % (11.5-14.5) Platelet Count 198 x10^3/uL (140-400) Neutrophils (%) (Auto) 61 % (31-73) Lymphocytes (%) (Auto) 27 % (24-48) Monocytes (%) (Auto) 10 % (0-9) Eosinophils (%) (Auto) 2 % (0-3) Basophils (%) (Auto) 0 % (0-3) Neutrophils # (Auto) 4.7 x10^3uL (1.8-7.7) Lymphocytes # (Auto) 2.1 x10^3/uL (1.0-4.8) Monocytes # (Auto) 0.7 x10^3/uL (0.0-1.1) Eosinophils # (Auto) 0.2 x10^3/uL (0.0-0.7) Basophils # (Auto) 0.0 x10^3/uL (0.0-0.2) Sodium Level 148 mmol/L (136-145) Potassium Level 3.3 mmol/L (3.5-5.1) Chloride Level 115 mmol/L (98-107) Carbon Dioxide Level 24 mmol/L (21-32) Anion Gap 9 (6-14) Blood Urea Nitrogen 29 mg/dL (8-26) Creatinine 1.0 mg/dL (0.7-1.3) Estimated GFR (Cockcroft-Gault) 71.5 Glucose Level 115 mg/dL (70-99) Calcium Level 7.6 mg/dL (8.5-10.1) Test 09/26/16 07:23 09/26/16 11:22 Glucose (Fingerstick) 115 mg/dL (70-99) 171 mg/dL (70-99) Laboratory Tests Test 09/25/16 16:31 09/25/16 21:20 09/26/16 04:40 09/26/16 07:23 Glucose (Fingerstick) 148 mg/dL (70-99) 143 mg/dL (70-99) 115 mg/dL (70-99) White Blood Count 7.7 x10^3/uL (4.0-11.0) Red Blood Count 3.00 x10^6/uL (4.30-5.70) Hemoglobin 9.2 g/dL (13.0-17.5) Hematocrit 27.1 % (39.0-53.0) Mean Corpuscular Volume 91 fL (79-100) Mean Corpuscular Hemoglobin 31 pg (25-35) Mean Corpuscular Hemoglobin Concent 34 g/dL (31-37) Red Cell Distribution Width 14.7 % (11.5-14.5) Platelet Count 198 x10^3/uL (140-400) Neutrophils (%) (Auto) 61 % (31-73) Lymphocytes (%) (Auto) 27 % (24-48) Monocytes (%) (Auto) 10 % (0-9) Eosinophils (%) (Auto) 2 % (0-3) Basophils (%) (Auto) 0 % (0-3) Neutrophils # (Auto) 4.7 x10^3uL (1.8-7.7) Lymphocytes # (Auto) 2.1 x10^3/uL (1.0-4.8) Monocytes # (Auto) 0.7 x10^3/uL (0.0-1.1) Eosinophils # (Auto) 0.2 x10^3/uL (0.0-0.7) Basophils # (Auto) 0.0 x10^3/uL (0.0-0.2) Sodium Level 148 mmol/L (136-145) Potassium Level 3.3 mmol/L (3.5-5.1) Chloride Level 115 mmol/L (98-107) Carbon Dioxide Level 24 mmol/L (21-32) Anion Gap 9 (6-14) Blood Urea Nitrogen 29 mg/dL (8-26) Creatinine 1.0 mg/dL (0.7-1.3) Estimated GFR (Cockcroft-Gault) 71.5 Glucose Level 115 mg/dL (70-99) Calcium Level 7.6 mg/dL (8.5-10.1) Test 09/26/16 11:22 Glucose (Fingerstick) 171 mg/dL (70-99) Microbiology 09/24/16 Blood Culture - Preliminary, Resulted NO GROWTH AFTER 1 DAY 09/21/16 Urine Culture - Final, Complete 09/21/16 Urine Culture Result 1 (NORBERTO) - Final, Complete Medications Current Medications Sodium Chloride 1,000 ml @ 1,000 mls/hr 1X ONCE IV Last administered on 19:49; Start 09/20/16 at 17:15; Stop 09/20/16 at 18:14; Status DC Sodium Chloride 1,000 ml @ 1,000 mls/hr 1X ONCE IV Last administered on 19:51; Start 09/20/16 at 17:15; Stop 09/20/16 at 18:14; Status DC Vancomycin HCl (Vanco Per Pharmacy) 1 each PRN DAILY PRN MC SEE COMMENTS Last administered on 09/20/16 19:32; Start 09/20/16 at 17:15; Stop 09/21/16 at 07:43 ; Status DC Piperacillin Sod/ Tazobactam Sod (Zosyn Per Pharmacy) 1 each PRN DAILY PRN MC SEE COMMENTS; Start 09/20/16 at 17:15; Stop 09/20/16 at 17:15; Status DC Sodium Chloride 1,000 ml @ 100 mls/hr Q10H IV Last administered on 09/24/16 03:55; Start 09/20/16 at 17:15; Stop 09/24/16 at 08:34; Status DC Hydrocortisone Sodium Succinate (Solu-CORTEF) 100 mg 1X ONCE IV Last administered on 09/20/16 19:50; Start 09/20/16 at 17:15; Stop 09/20/16 at 17:16 ; Status DC Hydrocortisone Sodium Succinate (Solu-CORTEF) 100 mg Q8HRS IV Last administered on 09/22/16 05:30; Start 09/20/16 at 22:00; Stop 09/22/16 at 11:15 ; Status DC Vancomycin HCl 2 gm/Sodium Chloride 500 ml @ 250 mls/hr 1X ONCE IV ; Start at 17:15; Stop 09/20/16 at 19:14; Status Cancel Piperacillin Sod/ Tazobactam Sod 4.5 gm/Sodium Chloride 100 ml @ 200 mls/hr Q6HRS IV ; Start 09/20/16 at 18:00; Stop 09/20/16 at 18:00; Status DC Albuterol/ Ipratropium (Duoneb) 3 ml RTQID NEB Last administered on 09/26/16 11 :44; Start 09/20/16 at 17:30 Calcium Carbonate/ Glycine (Tums) 500 mg TID PO Last administered on 09/26/16 09:06; Start 09/20/16 at 21:00 Docusate Sodium (Colace) 100 mg BID PO Last administered on 09/26/16 09:03; Start 09/20/16 at 21:00 Lamotrigine (LaMICtal) 100 mg BID PO ; Start 09/20/16 at 21:00; Stop 09/20/16 at 21:00; Status DC Levothyroxine Sodium (Synthroid) 112 mcg DAILY PO ; Start 09/21/16 at 09:00; Stop 09/21/16 at 09:00; Status DC Ondansetron HCl (Zofran Odt) 4 mg PRN Q4HRS PRN PO NAUSEA/VOMITING; Start 09/20 at 17:30 Phenytoin Sodium (Dilantin) 300 mg HS PO ; Start 09/20/16 at 21:00; Stop at 21:00; Status DC Capsaicin (Zostrix) 1 loulou BID TP Last administered on 09/26/16 09:08; Start at 21:00 Artificial Tears (Artificial Tears) 1 drop BID OU Last administered on 09:07; Start 09/20/16 at 21:00 Insulin Aspart Prota 70%/Aspart 30% (Novolog Mix 70-30) 10 units DAILYBFRSUP SQ Last administered on 09/22/16 17:47; Start 09/20/16 at 17:45; Stop 09/23/16 at 09:31; Status DC Insulin Aspart Prota 70%/Aspart 30% (Novolog Mix 70-30) 22 units DAILYAC SQ Last administered on 09/23/16 09:20; Start 09/21/16 at 07:30; Stop 09/23/16 at 09:31; Status DC Famotidine (Pepcid) 20 mg BID PO ; Start 09/20/16 at 21:00; Stop 09/21/16 at 08: 25; Status DC Heparin Sodium (Porcine) (Heparin Sq) 5,000 unit Q12HR SQ Last administered on 09/26/16 09:29; Start 09/20/16 at 21:00 Levetiracetam (Keppra) 500 mg BID PO ; Start 09/20/16 at 21:00; Stop 09/20/16 at 21:00; Status DC Doxycycline Hyclate 100 mg/ Dextrose 100 ml @ 50 mls/hr Q12HR IV Last administered on 09/26/16 09:03; Start 09/20/16 at 21:00 Vancomycin HCl 1 each 1X ONCE MC ; Start 09/22/16 at 16:00; Stop 09/22/16 at 16 :00; Status DC Levetiracetam 500 mg/Sodium Chloride 100 ml @ 400 mls/hr Q12HR IV Last administered on 09/26/16 08:56; Start 09/20/16 at 21:00 Norepinephrine Bitartrate 250 ml @ 0 mls/hr CONT PRN IV SEE I/O RECORD Last administered on 09/21/16 07:27; Start 09/20/16 at 21:45; Stop 09/22/16 at 16:09 ; Status DC Morphine Sulfate 4 mg PRN Q2HR PRN IV SEVERE PAIN Last administered on 20:59; Start 09/20/16 at 23:15; Stop 09/22/16 at 11:15; Status DC Albumin Human 500 ml @ 125 mls/hr 1X ONCE IV Last administered on 09/20/16 23:47; Start 09/20/16 at 23:30; Stop 09/21/16 at 03:29; Status DC Linezolid 300 ml @ 300 mls/hr Q12HR IV Last administered on 09/22/16 23:04; Start 09/21/16 at 09:00; Stop 09/23/16 at 10:17; Status DC Meropenem 500 mg/ Sodium Chloride 50 ml @ 100 mls/hr DAILY@0800 IV Last administered on 09/23/16 09:05; Start 09/21/16 at 08:00; Stop 09/23/16 at 10:17 ; Status DC Micafungin Sodium 100 mg/Dextrose 100 ml @ 100 mls/hr Q24H IV Last administered on 09/22/16 15:16; Start 09/21/16 at 10:00; Stop 09/23/16 at 10:17 ; Status DC Famotidine (Pepcid) 20 mg DAILY IVP Last administered on 09/25/16 08:36; Start 09/21/16 at 09:00; Stop 09/25/16 at 13:04; Status DC Levothyroxine Sodium 56 mcg/ Sodium Chloride 5 ml @ 100 mls/hr DAILY IVP Last administered on 09/25/16 11:56; Start 09/21/16 at 09:00; Stop 09/25/16 at 13:04; Status DC Fosphenytoin Sodium (Cerebyx) 100 mg Q8HRS IV Last administered on 09/26/16 05: 51; Start 09/21/16 at 09:00 Amino Acids/ Glycerin/ Electrolytes 1,000 ml @ 80 mls/hr [id number] IV Last administered on 09/23/16 18:04; Start 09/21/16 at 10:30; Stop 09/24/16 at 12:45 ; Status DC Morphine Sulfate 1 mg PRN Q2HR PRN IV SEVERE PAIN Last administered on 17:53; Start 09/22/16 at 11:15 Insulin Aspart (NovoLOG) 0-7 UNITS TIDWMEALS SQ Last administered on 09/26/16 12:35; Start 09/22/16 at 12:00 Dextrose (Dextrose 50%-Water Syringe) 12.5 gm PRN Q15MIN PRN IV SEE COMMENTS; Start 09/22/16 at 11:30 Potassium Chloride 50 ml @ 50 mls/hr Q1H IV Last administered on 09/23/16 14: 10; Start 09/23/16 at 10:00; Stop 09/23/16 at 11:59; Status DC Meropenem 500 mg/ Sodium Chloride 50 ml @ 100 mls/hr Q8HRS IV Last administered on 09/26/16 05:52; Start 09/23/16 at 14:00 Potassium Chloride 50 ml @ 50 mls/hr Q1H IV Last administered on 09/23/16 17: 43; Start 09/23/16 at 13:30; Stop 09/23/16 at 15:29; Status DC Potassium Chloride 50 ml @ 50 mls/hr 1X ONCE IV Last administered on 12:29; Start 09/24/16 at 08:45; Stop 09/24/16 at 18:26; Status DC Magnesium Sulfate/ Dextrose 100 ml @ 25 mls/hr 1X ONCE IV Last administered on 09/24/16 11:36; Start 09/24/16 at 08:45; Stop 09/24/16 at 12:44; Status DC Potassium Chloride (Klor-Con) 20 meq 1X ONCE PO ; Start 09/24/16 at 12:45; Stop 09/24/16 at 18:26; Status DC Magnesium Sulfate/ Dextrose 50 ml @ 25 mls/hr 1X ONCE IV ; Start 09/24/16 at 12 :45; Stop 09/24/16 at 18:26; Status DC Acetaminophen (Tylenol) 650 mg PRN Q6HRS PRN PO fever/mild pain Last administered on 09/25/16 03:19; Start 09/25/16 at 03:15 Potassium Chloride/Sodium Chloride 1,000 ml @ 60 mls/hr [id number] IV Last administered on 09/26/16 09:09; Start 09/25/16 at 10:45 Famotidine (Pepcid) 20 mg QHS PO ; Start 09/26/16 at 21:00 Levothyroxine Sodium (Synthroid) 112 mcg DAILY07 PO Last administered on 05:51; Start 09/26/16 at 07:00 Potassium Chloride (Klor-Con) 40 meq 1X ONCE PO Last administered on 09/26/16 12:17; Start 09/26/16 at 11:00; Stop 09/26/16 at 11:01; Status DC Active Scripts Active Reported Keppra (Levetiracetam) 500 Mg Tablet 500 Mg PO BID Lamictal (Lamotrigine) 100 Mg Tablet 1 Tab PO BID Lasix (Furosemide) 20 Mg Tablet 1 Tab PO DAILY Humulin 70-30 Vial (Hum Insulin Nph/Reg Insulin Hm) 100 Unit/1 Ml Vial 22 Unit SQ Q AM Synthroid (Levothyroxine Sodium) 112 Mcg Tablet 1 Tab PO DAILY Humulin 70-30 Vial (Hum Insulin Nph/Reg Insulin Hm) 100 Unit/1 Ml Vial 10 Unit SQ DAILYBFRSUP Dilantin (Phenytoin Sodium Extended) 100 Mg Capsule 300 Mg PO HS Vitals/I & O Vital Sign - Last 24 Hours 09/25/16 09/25/16 09/25/16 09/25/16 15:00 16:06 19:00 19:13 Temp 97.7 97.8 97.7 97.8 Pulse 89 61 Resp 19 20 B/P (MAP) 116/52 (73) 118/59 (78) Pulse Ox 95 91 O2 Delivery Room Air Room Air Room Air Room Air 09/25/16 09/25/16 09/26/16 09/26/16 20:00 23:00 03:00 07:00 Temp 98.0 98.1 98.6 98.0 98.1 98.6 Pulse 94 91 80 Resp 20 20 18 B/P (MAP) 118/53 (74) 114/56 (75) 137/55 (82) Pulse Ox 94 93 98 O2 Delivery Room Air Room Air Room Air Room Air O2 Flow Rate 3.0 09/26/16 09/26/16 09/26/16 07:16 11:00 11:45 Temp 98.1 98.1 Pulse 76 Resp 18 B/P (MAP) 128/62 (84) Pulse Ox 98 98 O2 Delivery Room Air Room Air Room Air Intake and Output 09/25/16 09/25/16 09/26/16 15:00 23:00 07:00 Intake Total 500 ml 1100 ml 300 ml Output Total 1900 ml 1000 ml Balance 500 ml -800 ml -700 ml ELANA MONTILLA MD Sep 26, 2016 13:22
[2016-09-26] MEDS: POTASSIUM CL 20MEQ IN D5W 1,000 ML IV SCH (14:25)
[2016-09-26 15:00] VITALS: BP 124/64
[2016-09-26 19:00] VITALS: BP 114/57
[2016-09-26] MEDS ORDERED: FAMOTIDINE 20 MG TABLET. PO SCH (21:00)
[2016-09-26 23:00] VITALS: BP 131/59
[2016-09-27 03:00] VITALS: BP 104/50
[2016-09-27] MEDS: POTASSIUM CL 20MEQ IN D5W 1,000 ML IV SCH (03:33)
[2016-09-27] MEDS: LEVOTHYROXINE 112 MCG TABLET PO SCH (05:56)
[2016-09-27] MEDS: MEROPENEM 500 MG in IV NORMAL SALINE 50ML 50 ML IV SCH (05:56)
[2016-09-27] MEDS: FOSPHENYTOIN 100 MG/2 ML VIAL. IV SCH (05:56)
[2016-09-27] MEDS: IPRATRPIUM/ALBUTEROL 0.5/2.5MG 3 ML NEBU. NEB SCH ×2 (07:19→11:05)
[2016-09-27 07:25] VITALS: BP 112/55
[2016-09-27] MEDS: INSULIN ASPART 300 UNITS/3 ML INSULN.PEN SQ SCH ×2 (08:00→12:52)
[2016-09-27 08:21] LABS: BASO % 0 % (0-3); EOS % 2 % (0-3); HEMOGLOBIN 9.6 g/dL (13.0-17.5); LYMPH % 31 % (24-48); MEAN CORPUSCULAR HEMOGLOBIN 31 pg (25-35); MEAN CORPUSCULAR HGB CONC 34 g/dL (31-37); MEAN CORPUSCULAR VOLUME 90 fL (79-100); MONO % 10 % (0-9); NEUT % 57 % (31-73); PLATELET COUNT 218 x10^3/uL (140-400); RED BLOOD COUNT 3.12 x10^6/uL (4.30-5.70); RED CELL DISTRIBUTION WIDTH 15.1 % (11.5-14.5)
[2016-09-27 08:39] LABS: CALCIUM 7.1 mg/dL (8.5-10.1); CREATININE 1.1 mg/dL (0.7-1.3); GFR 64.1; POTASSIUM 3.6 mmol/L (3.5-5.1)
[2016-09-27] MEDS: DOCUSATE SODIUM 100 MG CAPSULE. PO SCH (09:00)
[2016-09-27] MEDS ORDERED: levETIRAcetam 500 MG TABLET PO SCH (09:00)
[2016-09-27] MEDS: DOXYCYCLINE HYCLATE 100 MG in IV DEXTROSE 5% 100 ML IV SCH (09:04)
[2016-09-27] MEDS: POLYVINYL ALCOHOL 1.4% OPHTH SOLUTION 15ML BOTTLE. OU SCH (09:05)
[2016-09-27] MEDS: CALCIUM CARBONATE 500 MG TAB.CHEW PO SCH (09:05)
[2016-09-27] MEDS: CAPSAICIN 0.025% TOPICAL CREAM 60GM TUBE. TP SCH (09:05)
[2016-09-27] MEDS: HEPARIN PF for SUB-Q USE 5,000 UNIT/0.5 ML VIAL. SQ SCH (09:10)
--- NOTE | 2016-09-27 09:11 | PDOC ---
Infectious Disease Note Subjective Subjective awake, says feeling good, ready to go home ROS ROS GEN: Denies fevers, chills, sweats HEENT: Denies blurred vision, sore throat CV: Denies chest pain RESP: Denies shortness of air, cough GI: Denies n/v/d NEURO: Denies confusion, dizziness MSK: Denies weakness, joint pain/swelling Vital Sign Vital Signs Vital Signs Date Time Temp Pulse Resp B/P (MAP) Pulse Ox O2 Delivery O2 Flow Rate FiO2 09/27/16 07:20 Room Air 09/27/16 03:00 98.6 96 18 104/50 (68) 98 98.6 Physical Exam PHYSICAL EXAM GENERAL: NAD, Alert HEENT: PERRL, OC/OP NECK: Supple, no JVD, no LN LUNGS: Clear HEART: S1S2, no gallop, no murmur ABD: Soft, NT, no organomegaly, no rebound EXT: No edema, no cyanosis BUSINESS DIRECTOR: Alert, oriented x 3, no focal neurologic deficit SKIN: No rash IV: ok Labs Lab Laboratory Tests Test 09/26/16 11:22 09/26/16 17:09 09/26/16 23:43 09/27/16 07:27 Glucose (Fingerstick) 171 mg/dL (70-99) 188 mg/dL (70-99) 136 mg/dL (70-99) 123 mg/dL (70-99) Test 09/27/16 08:10 White Blood Count 10.0 x10^3/uL (4.0-11.0) Red Blood Count 3.12 x10^6/uL (4.30-5.70) Hemoglobin 9.6 g/dL (13.0-17.5) Hematocrit 28.0 % (39.0-53.0) Mean Corpuscular Volume 90 fL (79-100) Mean Corpuscular Hemoglobin 31 pg (25-35) Mean Corpuscular Hemoglobin Concent 34 g/dL (31-37) Red Cell Distribution Width 15.1 % (11.5-14.5) Platelet Count 218 x10^3/uL (140-400) Neutrophils (%) (Auto) 57 % (31-73) Lymphocytes (%) (Auto) 31 % (24-48) Monocytes (%) (Auto) 10 % (0-9) Eosinophils (%) (Auto) 2 % (0-3) Basophils (%) (Auto) 0 % (0-3) Neutrophils # (Auto) 5.7 x10^3uL (1.8-7.7) Lymphocytes # (Auto) 3.0 x10^3/uL (1.0-4.8) Monocytes # (Auto) 1.0 x10^3/uL (0.0-1.1) Eosinophils # (Auto) 0.2 x10^3/uL (0.0-0.7) Basophils # (Auto) 0.0 x10^3/uL (0.0-0.2) Sodium Level 147 mmol/L (136-145) Potassium Level 3.6 mmol/L (3.5-5.1) Chloride Level 114 mmol/L (98-107) Carbon Dioxide Level 25 mmol/L (21-32) Anion Gap 8 (6-14) Blood Urea Nitrogen 26 mg/dL (8-26) Creatinine 1.1 mg/dL (0.7-1.3) Estimated GFR (Cockcroft-Gault) 64.1 Glucose Level 124 mg/dL (70-99) Calcium Level 7.1 mg/dL (8.5-10.1) Objective Assessment Fever Encephalopathy Leukocytosis - better Sepsis - off pressors Levophed -Received Vanc/Rocephin/Levoflox prior to transfer KINZA - better ? UTI - POA Multiple abx allergies Seizures - on Keppra Plan Plan of Care d/c Doxy and Meropenem Repeat cultures from 09/25 pending. Supportive care D/w Dr. Fernández Anticipate discharge soon JAREK EUGENE MD Sep 27, 2016 09:10
--- NOTE | 2016-09-27 10:29 | PDOC3 ---
Discharge Summary Visit Information Date of Admission: Sep 20, 2016 Date of Discharge: Sep 27, 2016 Admitting Diagnosis Comment: Severe Sepsis with shock needing pressors ACUTE RENAL fAILURE with oliguria POA NO known CKD prior to admit ANemia likely of chronic dse HX epilepsy Metabolic encephalopathy INmate moderate/severe malnutrition Atelectasis UTI Brief Hospital Course Allergies Allergies Coded Allergies Type Severity Reaction Last Updated Verified Carbapenems Allergy Intermediate 08/26/16 Yes Cephalosporins Allergy Intermediate 09/20/16 Yes Penicillins Allergy Intermediate 08/26/16 Yes aztreonam Allergy Intermediate 08/26/16 Yes sulfamethoxazole Allergy Intermediate 08/26/16 Yes trimethoprim Allergy Intermediate 08/26/16 Yes Vital Signs Vital Signs Date Time Temp Pulse Resp B/P (MAP) Pulse Ox O2 Delivery O2 Flow Rate FiO2 09/27/16 07:25 97.6 95 18 112/55 (74) 96 Room Air 97.6 Lab Results Laboratory Tests Test 09/25/16 16:31 09/25/16 21:20 09/26/16 04:40 09/26/16 07:23 Glucose (Fingerstick) 148 mg/dL (70-99) 143 mg/dL (70-99) 115 mg/dL (70-99) White Blood Count 7.7 x10^3/uL (4.0-11.0) Red Blood Count 3.00 x10^6/uL (4.30-5.70) Hemoglobin 9.2 g/dL (13.0-17.5) Hematocrit 27.1 % (39.0-53.0) Mean Corpuscular Volume 91 fL (79-100) Mean Corpuscular Hemoglobin 31 pg (25-35) Mean Corpuscular Hemoglobin Concent 34 g/dL (31-37) Red Cell Distribution Width 14.7 % (11.5-14.5) Platelet Count 198 x10^3/uL (140-400) Neutrophils (%) (Auto) 61 % (31-73) Lymphocytes (%) (Auto) 27 % (24-48) Monocytes (%) (Auto) 10 % (0-9) Eosinophils (%) (Auto) 2 % (0-3) Basophils (%) (Auto) 0 % (0-3) Neutrophils # (Auto) 4.7 x10^3uL (1.8-7.7) Lymphocytes # (Auto) 2.1 x10^3/uL (1.0-4.8) Monocytes # (Auto) 0.7 x10^3/uL (0.0-1.1) Eosinophils # (Auto) 0.2 x10^3/uL (0.0-0.7) Basophils # (Auto) 0.0 x10^3/uL (0.0-0.2) Sodium Level 148 mmol/L (136-145) Potassium Level 3.3 mmol/L (3.5-5.1) Chloride Level 115 mmol/L (98-107) Carbon Dioxide Level 24 mmol/L (21-32) Anion Gap 9 (6-14) Blood Urea Nitrogen 29 mg/dL (8-26) Creatinine 1.0 mg/dL (0.7-1.3) Estimated GFR (Cockcroft-Gault) 71.5 Glucose Level 115 mg/dL (70-99) Calcium Level 7.6 mg/dL (8.5-10.1) Test 09/26/16 11:22 09/26/16 17:09 09/26/16 23:43 09/27/16 07:27 Glucose (Fingerstick) 171 mg/dL (70-99) 188 mg/dL (70-99) 136 mg/dL (70-99) 123 mg/dL (70-99) Test 09/27/16 08:10 White Blood Count 10.0 x10^3/uL (4.0-11.0) Red Blood Count 3.12 x10^6/uL (4.30-5.70) Hemoglobin 9.6 g/dL (13.0-17.5) Hematocrit 28.0 % (39.0-53.0) Mean Corpuscular Volume 90 fL (79-100) Mean Corpuscular Hemoglobin 31 pg (25-35) Mean Corpuscular Hemoglobin Concent 34 g/dL (31-37) Red Cell Distribution Width 15.1 % (11.5-14.5) Platelet Count 218 x10^3/uL (140-400) Neutrophils (%) (Auto) 57 % (31-73) Lymphocytes (%) (Auto) 31 % (24-48) Monocytes (%) (Auto) 10 % (0-9) Eosinophils (%) (Auto) 2 % (0-3) Basophils (%) (Auto) 0 % (0-3) Neutrophils # (Auto) 5.7 x10^3uL (1.8-7.7) Lymphocytes # (Auto) 3.0 x10^3/uL (1.0-4.8) Monocytes # (Auto) 1.0 x10^3/uL (0.0-1.1) Eosinophils # (Auto) 0.2 x10^3/uL (0.0-0.7) Basophils # (Auto) 0.0 x10^3/uL (0.0-0.2) Sodium Level 147 mmol/L (136-145) Potassium Level 3.6 mmol/L (3.5-5.1) Chloride Level 114 mmol/L (98-107) Carbon Dioxide Level 25 mmol/L (21-32) Anion Gap 8 (6-14) Blood Urea Nitrogen 26 mg/dL (8-26) Creatinine 1.1 mg/dL (0.7-1.3) Estimated GFR (Cockcroft-Gault) 64.1 Glucose Level 124 mg/dL (70-99) Calcium Level 7.1 mg/dL (8.5-10.1) Laboratory Tests Test 09/26/16 11:22 09/26/16 17:09 09/26/16 23:43 09/27/16 07:27 Glucose (Fingerstick) 171 mg/dL (70-99) 188 mg/dL (70-99) 136 mg/dL (70-99) 123 mg/dL (70-99) Test 09/27/16 08:10 White Blood Count 10.0 x10^3/uL (4.0-11.0) Red Blood Count 3.12 x10^6/uL (4.30-5.70) Hemoglobin 9.6 g/dL (13.0-17.5) Hematocrit 28.0 % (39.0-53.0) Mean Corpuscular Volume 90 fL (79-100) Mean Corpuscular Hemoglobin 31 pg (25-35) Mean Corpuscular Hemoglobin Concent 34 g/dL (31-37) Red Cell Distribution Width 15.1 % (11.5-14.5) Platelet Count 218 x10^3/uL (140-400) Neutrophils (%) (Auto) 57 % (31-73) Lymphocytes (%) (Auto) 31 % (24-48) Monocytes (%) (Auto) 10 % (0-9) Eosinophils (%) (Auto) 2 % (0-3) Basophils (%) (Auto) 0 % (0-3) Neutrophils # (Auto) 5.7 x10^3uL (1.8-7.7) Lymphocytes # (Auto) 3.0 x10^3/uL (1.0-4.8) Monocytes # (Auto) 1.0 x10^3/uL (0.0-1.1) Eosinophils # (Auto) 0.2 x10^3/uL (0.0-0.7) Basophils # (Auto) 0.0 x10^3/uL (0.0-0.2) Sodium Level 147 mmol/L (136-145) Potassium Level 3.6 mmol/L (3.5-5.1) Chloride Level 114 mmol/L (98-107) Carbon Dioxide Level 25 mmol/L (21-32) Anion Gap 8 (6-14) Blood Urea Nitrogen 26 mg/dL (8-26) Creatinine 1.1 mg/dL (0.7-1.3) Estimated GFR (Cockcroft-Gault) 64.1 Glucose Level 124 mg/dL (70-99) Calcium Level 7.1 mg/dL (8.5-10.1) Brief Hospital Course Mr. Rivas is a 80 old male, inmate who presented with acute on chronic mental status change was in septic shock from UTI, etc (see above dx), and needed vasopressors in ICU, [place] on, back to baseline confusion, on dysphagia diet, Co managed with ID now off IV antibiotics. Pt seen and examined. marty judge and DENNIS Yanez ConsulTs; ID, pulmo, neuro Time 32 mins > 50% paperwork etc Discharge Information Condition at Discharge: Improved, Stable Disposition/Orders: Other (detention) Scheduled Furosemide (Lasix), 1 TAB PO DAILY, (Reported) Hum Insulin Nph/Reg Insulin Hm (Humulin 70-30 Vial), 10 UNIT SQ DAILYBFRSUP, ( Reported) Hum Insulin Nph/Reg Insulin Hm (Humulin 70-30 Vial), 22 UNIT SQ Q AM, (Reported) Lamotrigine (Lamictal), 1 TAB PO BID, (Reported) Levetiracetam (Keppra), 500 MG PO BID, (Reported) Levothyroxine Sodium (Synthroid), 1 TAB PO DAILY, (Reported) Phenytoin Sodium Extended (Dilantin), 300 MG PO HS, (Reported) Discontinued Medications Calcium Carbonate (Calcium Antacid), 400 MG PO TID, (Reported) Calcium Polycarbophil (Calcium Polycarbophil), 1,250 MG PO DAILYWSUP, (Reported) Capsaicin (Capzasin-Hp), 42.5 GM TP BID, (Reported) Dextran 70/Hypromellose (Artificial Tears Eye Drops), 2 DROP EACHEYE BID, ( Reported) Docusate Sodium (Colace), 1 CAP PO BID, (Reported) Magnesium Hydroxide (Milk Of Magnesia), 400 MG PO PRN Q24HRS PRN for CONSTIPATION, (Reported) Ondansetron (Zofran Odt), 1 TAB SL PRN Q4HRS, (Reported) Ranitidine Hcl (Ranitidine Hcl), 1 TAB PO BID, (Reported) VIKA BARFIELD MD Sep 27, 2016 10:29
[2016-09-27 10:30] VITALS: BP 108/48
--- NOTE | 2016-09-27 13:58 | PDOC ---
PROGRESS NOTES Assessment Epilepsy, EEG negative for current seizure activity NPO status Metabolic encephalopathy Plan Continue current treatment Resume lamotrigine when taking orally Subjective No complaints Objective Vital Signs Date Time Temp Pulse Resp B/P (MAP) Pulse Ox O2 Delivery O2 Flow Rate FiO2 09/27/16 11:05 Room Air 09/27/16 10:30 97.5 95 18 108/48 (68) 95 97.5 Intake and Output 09/27/16 06:59 Intake Total 3608 ml Output Total 3100 ml Balance 508 ml Intake Oral 1958 ml IV Total 1650 ml Output Urine Total 800 ml Stool Total 2300 ml PHYSICAL EXAM Alert. Oriented only to person. Conversant PERRL. EOMI. CN: no focal findings. Muscle tone: normal. Muscle strength: Moves all extremities DTR: 1+ Plantar reflex: flexor Gait: not examined in bed. Sensory exam: no abnormal findings. No cerebellar signs elicited. Review of Relevant I have reviewed the following items juliocesar (where applicable) has been applied. Labs Laboratory Tests Test 09/25/16 16:31 09/25/16 21:20 09/26/16 04:40 09/26/16 07:23 Glucose (Fingerstick) 148 mg/dL (70-99) 143 mg/dL (70-99) 115 mg/dL (70-99) White Blood Count 7.7 x10^3/uL (4.0-11.0) Red Blood Count 3.00 x10^6/uL (4.30-5.70) Hemoglobin 9.2 g/dL (13.0-17.5) Hematocrit 27.1 % (39.0-53.0) Mean Corpuscular Volume 91 fL (79-100) Mean Corpuscular Hemoglobin 31 pg (25-35) Mean Corpuscular Hemoglobin Concent 34 g/dL (31-37) Red Cell Distribution Width 14.7 % (11.5-14.5) Platelet Count 198 x10^3/uL (140-400) Neutrophils (%) (Auto) 61 % (31-73) Lymphocytes (%) (Auto) 27 % (24-48) Monocytes (%) (Auto) 10 % (0-9) Eosinophils (%) (Auto) 2 % (0-3) Basophils (%) (Auto) 0 % (0-3) Neutrophils # (Auto) 4.7 x10^3uL (1.8-7.7) Lymphocytes # (Auto) 2.1 x10^3/uL (1.0-4.8) Monocytes # (Auto) 0.7 x10^3/uL (0.0-1.1) Eosinophils # (Auto) 0.2 x10^3/uL (0.0-0.7) Basophils # (Auto) 0.0 x10^3/uL (0.0-0.2) Sodium Level 148 mmol/L (136-145) Potassium Level 3.3 mmol/L (3.5-5.1) Chloride Level 115 mmol/L (98-107) Carbon Dioxide Level 24 mmol/L (21-32) Anion Gap 9 (6-14) Blood Urea Nitrogen 29 mg/dL (8-26) Creatinine 1.0 mg/dL (0.7-1.3) Estimated GFR (Cockcroft-Gault) 71.5 Glucose Level 115 mg/dL (70-99) Calcium Level 7.6 mg/dL (8.5-10.1) Test 09/26/16 11:22 09/26/16 17:09 09/26/16 23:43 09/27/16 07:27 Glucose (Fingerstick) 171 mg/dL (70-99) 188 mg/dL (70-99) 136 mg/dL (70-99) 123 mg/dL (70-99) Test 09/27/16 08:10 09/27/16 11:52 White Blood Count 10.0 x10^3/uL (4.0-11.0) Red Blood Count 3.12 x10^6/uL (4.30-5.70) Hemoglobin 9.6 g/dL (13.0-17.5) Hematocrit 28.0 % (39.0-53.0) Mean Corpuscular Volume 90 fL (79-100) Mean Corpuscular Hemoglobin 31 pg (25-35) Mean Corpuscular Hemoglobin Concent 34 g/dL (31-37) Red Cell Distribution Width 15.1 % (11.5-14.5) Platelet Count 218 x10^3/uL (140-400) Neutrophils (%) (Auto) 57 % (31-73) Lymphocytes (%) (Auto) 31 % (24-48) Monocytes (%) (Auto) 10 % (0-9) Eosinophils (%) (Auto) 2 % (0-3) Basophils (%) (Auto) 0 % (0-3) Neutrophils # (Auto) 5.7 x10^3uL (1.8-7.7) Lymphocytes # (Auto) 3.0 x10^3/uL (1.0-4.8) Monocytes # (Auto) 1.0 x10^3/uL (0.0-1.1) Eosinophils # (Auto) 0.2 x10^3/uL (0.0-0.7) Basophils # (Auto) 0.0 x10^3/uL (0.0-0.2) Sodium Level 147 mmol/L (136-145) Potassium Level 3.6 mmol/L (3.5-5.1) Chloride Level 114 mmol/L (98-107) Carbon Dioxide Level 25 mmol/L (21-32) Anion Gap 8 (6-14) Blood Urea Nitrogen 26 mg/dL (8-26) Creatinine 1.1 mg/dL (0.7-1.3) Estimated GFR (Cockcroft-Gault) 64.1 Glucose Level 124 mg/dL (70-99) Calcium Level 7.1 mg/dL (8.5-10.1) Glucose (Fingerstick) 180 mg/dL (70-99) Laboratory Tests Test 09/26/16 17:09 09/26/16 23:43 09/27/16 07:27 09/27/16 08:10 Glucose (Fingerstick) 188 mg/dL (70-99) 136 mg/dL (70-99) 123 mg/dL (70-99) White Blood Count 10.0 x10^3/uL (4.0-11.0) Red Blood Count 3.12 x10^6/uL (4.30-5.70) Hemoglobin 9.6 g/dL (13.0-17.5) Hematocrit 28.0 % (39.0-53.0) Mean Corpuscular Volume 90 fL (79-100) Mean Corpuscular Hemoglobin 31 pg (25-35) Mean Corpuscular Hemoglobin Concent 34 g/dL (31-37) Red Cell Distribution Width 15.1 % (11.5-14.5) Platelet Count 218 x10^3/uL (140-400) Neutrophils (%) (Auto) 57 % (31-73) Lymphocytes (%) (Auto) 31 % (24-48) Monocytes (%) (Auto) 10 % (0-9) Eosinophils (%) (Auto) 2 % (0-3) Basophils (%) (Auto) 0 % (0-3) Neutrophils # (Auto) 5.7 x10^3uL (1.8-7.7) Lymphocytes # (Auto) 3.0 x10^3/uL (1.0-4.8) Monocytes # (Auto) 1.0 x10^3/uL (0.0-1.1) Eosinophils # (Auto) 0.2 x10^3/uL (0.0-0.7) Basophils # (Auto) 0.0 x10^3/uL (0.0-0.2) Sodium Level 147 mmol/L (136-145) Potassium Level 3.6 mmol/L (3.5-5.1) Chloride Level 114 mmol/L (98-107) Carbon Dioxide Level 25 mmol/L (21-32) Anion Gap 8 (6-14) Blood Urea Nitrogen 26 mg/dL (8-26) Creatinine 1.1 mg/dL (0.7-1.3) Estimated GFR (Cockcroft-Gault) 64.1 Glucose Level 124 mg/dL (70-99) Calcium Level 7.1 mg/dL (8.5-10.1) Test 09/27/16 11:52 Glucose (Fingerstick) 180 mg/dL (70-99) Microbiology 09/24/16 Blood Culture - Preliminary, Resulted NO GROWTH AFTER 2 DAYS 09/25/16 Urine Culture - Preliminary, Resulted 09/25/16 Urine Culture Result 1 (NORBERTO) - Preliminary, Resulted Medications Current Medications Sodium Chloride 1,000 ml @ 1,000 mls/hr 1X ONCE IV Last administered on 19:49; Start 09/20/16 at 17:15; Stop 09/20/16 at 18:14; Status DC Sodium Chloride 1,000 ml @ 1,000 mls/hr 1X ONCE IV Last administered on 19:51; Start 09/20/16 at 17:15; Stop 09/20/16 at 18:14; Status DC Vancomycin HCl (Vanco Per Pharmacy) 1 each PRN DAILY PRN MC SEE COMMENTS Last administered on 09/20/16 19:32; Start 09/20/16 at 17:15; Stop 09/21/16 at 07:43 ; Status DC Piperacillin Sod/ Tazobactam Sod (Zosyn Per Pharmacy) 1 each PRN DAILY PRN MC SEE COMMENTS; Start 09/20/16 at 17:15; Stop 09/20/16 at 17:15; Status DC Sodium Chloride 1,000 ml @ 100 mls/hr Q10H IV Last administered on 09/24/16 03:55; Start 09/20/16 at 17:15; Stop 09/24/16 at 08:34; Status DC Hydrocortisone Sodium Succinate (Solu-CORTEF) 100 mg 1X ONCE IV Last administered on 09/20/16 19:50; Start 09/20/16 at 17:15; Stop 09/20/16 at 17:16 ; Status DC Hydrocortisone Sodium Succinate (Solu-CORTEF) 100 mg Q8HRS IV Last administered on 09/22/16 05:30; Start 09/20/16 at 22:00; Stop 09/22/16 at 11:15 ; Status DC Vancomycin HCl 2 gm/Sodium Chloride 500 ml @ 250 mls/hr 1X ONCE IV ; Start at 17:15; Stop 09/20/16 at 19:14; Status Cancel Piperacillin Sod/ Tazobactam Sod 4.5 gm/Sodium Chloride 100 ml @ 200 mls/hr Q6HRS IV ; Start 09/20/16 at 18:00; Stop 09/20/16 at 18:00; Status DC Albuterol/ Ipratropium (Duoneb) 3 ml RTQID NEB Last administered on 09/27/16 11 :05; Start 09/20/16 at 17:30 Calcium Carbonate/ Glycine (Tums) 500 mg TID PO Last administered on 09/27/16 09:05; Start 09/20/16 at 21:00 Docusate Sodium (Colace) 100 mg BID PO Last administered on 09/26/16 21:52; Start 09/20/16 at 21:00 Lamotrigine (LaMICtal) 100 mg BID PO ; Start 09/20/16 at 21:00; Stop 09/20/16 at 21:00; Status DC Levothyroxine Sodium (Synthroid) 112 mcg DAILY PO ; Start 09/21/16 at 09:00; Stop 09/21/16 at 09:00; Status DC Ondansetron HCl (Zofran Odt) 4 mg PRN Q4HRS PRN PO NAUSEA/VOMITING; Start 09/20 at 17:30 Phenytoin Sodium (Dilantin) 300 mg HS PO ; Start 09/20/16 at 21:00; Stop at 21:00; Status DC Capsaicin (Zostrix) 1 loulou BID TP Last administered on 09/27/16 09:05; Start at 21:00 Artificial Tears (Artificial Tears) 1 drop BID OU Last administered on 09:05; Start 09/20/16 at 21:00 Insulin Aspart Prota 70%/Aspart 30% (Novolog Mix 70-30) 10 units DAILYBFRSUP SQ Last administered on 09/22/16 17:47; Start 09/20/16 at 17:45; Stop 09/23/16 at 09:31; Status DC Insulin Aspart Prota 70%/Aspart 30% (Novolog Mix 70-30) 22 units DAILYAC SQ Last administered on 09/23/16 09:20; Start 09/21/16 at 07:30; Stop 09/23/16 at 09:31; Status DC Famotidine (Pepcid) 20 mg BID PO ; Start 09/20/16 at 21:00; Stop 09/21/16 at 08: 25; Status DC Heparin Sodium (Porcine) (Heparin Sq) 5,000 unit Q12HR SQ Last administered on 09/27/16 09:10; Start 09/20/16 at 21:00 Levetiracetam (Keppra) 500 mg BID PO ; Start 09/20/16 at 21:00; Stop 09/20/16 at 21:00; Status DC Doxycycline Hyclate 100 mg/ Dextrose 100 ml @ 50 mls/hr Q12HR IV Last administered on 09/27/16 09:04; Start 09/20/16 at 21:00; Stop 09/27/16 at 09:12; Status DC Vancomycin HCl 1 each 1X ONCE MC ; Start 09/22/16 at 16:00; Stop 09/22/16 at 16 :00; Status DC Levetiracetam 500 mg/Sodium Chloride 100 ml @ 400 mls/hr Q12HR IV Last administered on 09/26/16 21:53; Start 09/20/16 at 21:00; Stop 09/27/16 at 08:20; Status DC Norepinephrine Bitartrate 250 ml @ 0 mls/hr CONT PRN IV SEE I/O RECORD Last administered on 09/21/16 07:27; Start 09/20/16 at 21:45; Stop 09/22/16 at 16:09 ; Status DC Morphine Sulfate 4 mg PRN Q2HR PRN IV SEVERE PAIN Last administered on 20:59; Start 09/20/16 at 23:15; Stop 09/22/16 at 11:15; Status DC Albumin Human 500 ml @ 125 mls/hr 1X ONCE IV Last administered on 09/20/16 23:47; Start 09/20/16 at 23:30; Stop 09/21/16 at 03:29; Status DC Linezolid 300 ml @ 300 mls/hr Q12HR IV Last administered on 09/22/16 23:04; Start 09/21/16 at 09:00; Stop 09/23/16 at 10:17; Status DC Meropenem 500 mg/ Sodium Chloride 50 ml @ 100 mls/hr DAILY@0800 IV Last administered on 09/23/16 09:05; Start 09/21/16 at 08:00; Stop 09/23/16 at 10:17 ; Status DC Micafungin Sodium 100 mg/Dextrose 100 ml @ 100 mls/hr Q24H IV Last administered on 09/22/16 15:16; Start 09/21/16 at 10:00; Stop 09/23/16 at 10:17 ; Status DC Famotidine (Pepcid) 20 mg DAILY IVP Last administered on 09/25/16 08:36; Start 09/21/16 at 09:00; Stop 09/25/16 at 13:04; Status DC Levothyroxine Sodium 56 mcg/ Sodium Chloride 5 ml @ 100 mls/hr DAILY IVP Last administered on 09/25/16 11:56; Start 09/21/16 at 09:00; Stop 09/25/16 at 13:04; Status DC Fosphenytoin Sodium (Cerebyx) 100 mg Q8HRS IV Last administered on 09/27/16 05: 56; Start 09/21/16 at 09:00 Amino Acids/ Glycerin/ Electrolytes 1,000 ml @ 80 mls/hr [id number] IV Last administered on 09/23/16 18:04; Start 09/21/16 at 10:30; Stop 09/24/16 at 12:45 ; Status DC Morphine Sulfate 1 mg PRN Q2HR PRN IV SEVERE PAIN Last administered on 17:53; Start 09/22/16 at 11:15 Insulin Aspart (NovoLOG) 0-7 UNITS TIDWMEALS SQ Last administered on 09/27/16 12:52; Start 09/22/16 at 12:00 Dextrose (Dextrose 50%-Water Syringe) 12.5 gm PRN Q15MIN PRN IV SEE COMMENTS; Start 09/22/16 at 11:30 Potassium Chloride 50 ml @ 50 mls/hr Q1H IV Last administered on 09/23/16 14: 10; Start 09/23/16 at 10:00; Stop 09/23/16 at 11:59; Status DC Meropenem 500 mg/ Sodium Chloride 50 ml @ 100 mls/hr Q8HRS IV Last administered on 09/27/16 05:56; Start 09/23/16 at 14:00; Stop 09/27/16 at 09:12; Status DC Potassium Chloride 50 ml @ 50 mls/hr Q1H IV Last administered on 09/23/16 17: 43; Start 09/23/16 at 13:30; Stop 09/23/16 at 15:29; Status DC Potassium Chloride 50 ml @ 50 mls/hr 1X ONCE IV Last administered on 12:29; Start 09/24/16 at 08:45; Stop 09/24/16 at 18:26; Status DC Magnesium Sulfate/ Dextrose 100 ml @ 25 mls/hr 1X ONCE IV Last administered on 09/24/16 11:36; Start 09/24/16 at 08:45; Stop 09/24/16 at 12:44; Status DC Potassium Chloride (Klor-Con) 20 meq 1X ONCE PO ; Start 09/24/16 at 12:45; Stop 09/24/16 at 18:26; Status DC Magnesium Sulfate/ Dextrose 50 ml @ 25 mls/hr 1X ONCE IV ; Start 09/24/16 at 12 :45; Stop 09/24/16 at 18:26; Status DC Acetaminophen (Tylenol) 650 mg PRN Q6HRS PRN PO fever/mild pain Last administered on 09/25/16 03:19; Start 09/25/16 at 03:15 Potassium Chloride/Sodium Chloride 1,000 ml @ 60 mls/hr [id number] IV Last administered on 09/26/16 09:09; Start 09/25/16 at 10:45; Stop 09/26/16 at 13:21; Status DC Famotidine (Pepcid) 20 mg QHS PO Last administered on 09/26/16 21:52; Start 09/26/16 at 21:00 Levothyroxine Sodium (Synthroid) 112 mcg DAILY07 PO Last administered on 05:56; Start 09/26/16 at 07:00 Potassium Chloride (Klor-Con) 40 meq 1X ONCE PO Last administered on 09/26/16 12:17; Start 09/26/16 at 11:00; Stop 09/26/16 at 11:01; Status DC Potassium Chloride/Dextrose 1,000 ml @ 75 mls/hr [id number] IV Last administered on 09/27/16 03:33; Start 09/26/16 at 13:30 Levetiracetam (Keppra) 500 mg BID PO Last administered on 09/27/16 09:05; Start 09/27/16 at 09:00 Active Scripts Active Reported Keppra (Levetiracetam) 500 Mg Tablet 500 Mg PO BID Lamictal (Lamotrigine) 100 Mg Tablet 1 Tab PO BID Lasix (Furosemide) 20 Mg Tablet 1 Tab PO DAILY Humulin 70-30 Vial (Hum Insulin Nph/Reg Insulin Hm) 100 Unit/1 Ml Vial 22 Unit SQ Q AM Synthroid (Levothyroxine Sodium) 112 Mcg Tablet 1 Tab PO DAILY Humulin 70-30 Vial (Hum Insulin Nph/Reg Insulin Hm) 100 Unit/1 Ml Vial 10 Unit SQ DAILYBFRSUP Dilantin (Phenytoin Sodium Extended) 100 Mg Capsule 300 Mg PO HS Vitals/I & O Vital Sign - Last 24 Hours 09/26/16 09/26/16 09/26/16 09/26/16 15:00 15:12 19:00 19:34 Temp 98.3 98.0 98.3 98.0 Pulse 84 98 Resp 19 18 B/P (MAP) 124/64 (84) 114/57 (76) Pulse Ox 98 98 O2 Delivery Room Air Room Air Room Air Room Air 09/26/16 09/26/16 09/26/16 09/27/16 20:23 23:00 23:23 03:00 Temp 98.5 98.6 98.5 98.6 Pulse 96 96 Resp 20 18 B/P (MAP) 131/59 (83) 104/50 (68) Pulse Ox 98 98 O2 Delivery Room Air Room Air Room Air Room Air 09/27/16 09/27/16 09/27/16 09/27/16 07:20 07:25 08:00 10:30 Temp 97.6 97.5 97.6 97.5 Pulse 95 95 Resp 18 18 B/P (MAP) 112/55 (74) 108/48 (68) Pulse Ox 96 95 O2 Delivery Room Air Room Air Room Air Room Air 09/27/16 11:05 O2 Delivery Room Air Intake and Output 09/26/16 09/26/16 09/27/16 14:59 22:59 06:59 Intake Total 700 ml 1788 ml 1120 ml Output Total 2350 ml 750 ml Balance 700 ml -562 ml 370 ml JUAN FERGUSON MD Sep 27, 2016 13:58
== END 2016-09-27 14:00 | DRG 871 ==
LOC: 1 WEST ICU 16:58 → EEVIPCON 16:58 → 5 SOUTH 09-22 11:00 → 5 NORTH 09-22 16:04
PROVIDERS: ADMIT Internal Medicine; ATTEND Internal Medicine
PROC: 02HV33Z Insertion of Infusion Device into Superior Vena Cava, Percutaneous Approach (ICD-10-PCS; principal; 2016-09-20)
DX: A41.9 Sepsis, unspecified organism (principal); E43 Unspecified severe protein-calorie malnutrition; G92 Toxic encephalopathy; R65.21 Severe sepsis with septic shock; J98.11 Atelectasis; N17.9 Acute kidney failure, unspecified; N39.0 Urinary tract infection, site not specified; E87.0 Hyperosmolality and hypernatremia; D63.1 Anemia in chronic kidney disease; Z66 Do not resuscitate; E87.6 Hypokalemia; G40.909 Epilepsy, unspecified, not intractable, without status epilepticus; F03.90 Unspecified dementia, unspecified severity, without behavioral disturbance, psychotic disturbance, mood disturbance, and anxiety; I12.9 Hypertensive chronic kidney disease with stage 1 through stage 4 chronic kidney disease, or unspecified chronic kidney disease; K21.9 Gastro-esophageal reflux disease without esophagitis; Z51.5 Encounter for palliative care; R34 Anuria and oliguria; E88.09 Other disorders of plasma-protein metabolism, not elsewhere classified; K59.00 Constipation, unspecified; N18.3 Chronic kidney disease, stage 3 (moderate); R13.10 Dysphagia, unspecified; E03.9 Hypothyroidism, unspecified; E11.22 Type 2 diabetes mellitus with diabetic chronic kidney disease; Z68.32 Body mass index [BMI] 32.0-32.9, adult; Z88.1 Allergy status to other antibiotic agents; Z88.0 Allergy status to penicillin; Z88.2 Allergy status to sulfonamides; Z88.8 Allergy status to other drugs, medicaments and biological substances; Z79.4 Long term (current) use of insulin; Z79.899 Other long term (current) drug therapy; Z90.49 Acquired absence of other specified parts of digestive tract
CPT/HCPCS: 36415; 36600; 71010; 74000; 80048; 80053; 80185; 81001; 82805; 82962; 83605; 83735; 84145; 85007; 85027; 87040; 87086; 87641; 93005; 94250; 94640; 94760; 95816; J1720; J1815; J1953; J2020; J2185; J2248; J2270; J3475; J3480; J3490; J7030; J7042; J7620; P9045; Q2009; S0028; 92526; 92610; 97530